=== PATIENT | male | born 1945 | race Caucasian/White ===

== ENCOUNTER 2024-03-19 16:25 | Inpatient (IN) ==
--- NOTE | 2024-03-19 16:49 | ED Triage Note ---
Date of Service March 19, 2024 Provider in Triage Author: Becki Berg History of Present Illness This patient was briefly evaluated while in triage. An abbreviated physical exam was performed. This patient is a 78-year-old Male who presents to the ED for evaluation of right hip and knee pain, got caught up in a tractor and "got dragged." Does not think he hit his head. No thinners. Abrasions to both arms, right low back/hip pain and knee pain, can't walk on the right leg because of pain in the hip and knee. Denies headache or neck pain. Denies chest pain, shortness of breath, abdominal pain, or back pain. Physical Exam CONSTITUTIONAL: No acute distress. Well appearing. HEENT: Atraumatic. Grass in hair. NECK: No midline tenderness of cervical spine. RESPIRATORY: Clear to auscultation bilaterally. Equal expansion bilaterally. CARDIOVASCULAR: Regular rate and rhythm. GASTROINTESTINAL: Soft, nontender. MUSCULOSKELETAL: No midline back tenderness. Tender to palpation in the right knee and right buttock region. INTEGUMENTARY: Large abrasions to bilateral upper extremities. NEUROLOGIC: Alert and oriented X 4 with normal affect. Normal sensation in all four extremities. Initial orders for labs and / or imaging were placed and patient was placed in the waiting area until a bed is available. Please see further documentation for the full ED course.
--- NOTE | 2024-03-19 16:57 | Emergency Department Note ---
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 Cholecystectomy. Unremarkable liver. Patency of the intrahepatic and portal veins.2.3 cm cyst of the superior pole left kidney. Mild nonspecific bilateral perinephric stranding. No hydronephrosis. Prostatomegaly. Urinary bladder wall thickening and trabeculation. Atherosclerosis of the abdominal aorta without aneurysm. No lymphadenopathy. Small hiatal hernia. No bowel obstruction or bowel wall thickening. Extensive colonic diverticulosis. 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 Acute nondisplaced right sacral fractures are mostly vertically oriented extending into the right SI joint. Acute comminuted and mildly displaced fractures of the right superior pubic and inferior pubic rami. No left-sided pelvic ring fractures. Hemorrhage surrounding the pelvic ring fractures extends into the adjacent adductor musculature and right hemipelvis/space of Retzius. LUMBAR SPINE: Acute mildly displaced fracture of the right L5 transverse process. No additional acute fracture or subluxation identified. Mild lumbar levoscoliosis. IMPRESSION: 1. No acute posttraumatic intrathoracic abnormality or acute solid organ injury. 2. Acute comminuted mildly displaced right pelvic ring fracture deformities with surrounding hemorrhage. 3. Acute nondisplaced intra-articular right sacral fractures. 4. Acute mildly displaced fracture of the right L5 transverse process. 5. 6 mm groundglass nodule of the right middle lobe. Please refer to below summary of Fleischner criteria recommendations for follow- up of incidental CT nodules (Clover Hubbard, Guidelines for management of small pulmonary nodules detected on CT scans: A statement from the Fleischner Society, Radiology 237: [phone].) Note: newly detected indeterminate nodule in persons 35 years of age or older. * Low risk patients: minimal or absent history of smoking and/or other known risk factors * high risk patients: history of smoking or of other known risk factors (e.g. first degree relative with lung cancer, or exposure to asbestos, radon, uranium) * if a nodule up to 8 mm is partly solid or is ground glass further follow-up is required after 24 months to exclude possible slow growing adenocarcinoma (JOSE) SUBSOLID NODULES Solitary pure ground-glass nodule * nodule size <6 mm - no CT follow-up required * nodule size >=6 mm - follow-up CT at 6-12 months, then every 2 years until 5 years The above report was generated using voice recognition software. It may contain grammatical, syntax or spelling errors. ACT 112: Negative or not required by law. Electronically signed by: Frank Castro M.D. 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 There is mild circumferential soft tissue swelling. Achilles Calcaneal enthesophyte. Arterial calcifications. No acute fracture, dislocation or opaque foreign body identified. IMPRESSION: No acute fracture or dislocation identified. ACT 112: Negative or not required by law. The above report was generated using voice recognition software. It may contain grammatical, syntax or spelling errors. Electronically signed by: Frank Castro M.D. 03/19/2024 6:21 PM Elbow X-Ray 03/19/24 17:06 XR elbow LT min 3V routine HISTORY: 78 years-old Male hematoma acute pain in the left upper extremity status post trauma COMPARISON: None TECHNIQUE: 3 views of the left elbow FINDINGS: Large olecranon enthesophyte. Mild osteoarthritis. No acute fracture, dislocation or opaque foreign body. Mild circumferential soft tissue swelling. IMPRESSION: No acute fracture or dislocation. ACT 112: Negative or not required by law. The above report was generated using voice recognition software. It may contain grammatical, syntax or spelling errors. Electronically signed by: Frank Castro M.D. 03/19/2024 6:24 PM Pelvis X-Ray 03/19/24 17:06 XR pelvis 1-2V routine, XR femur RT 2V routine HISTORY: 78 years-old Male pain post fall acute pain in the pelvis and right femur status post fall COMPARISON: CT abdomen and pelvis of same day TECHNIQUE: AP view the pelvis with 2 views of the right femur FINDINGS: PELVIS: Contrast noted within the urinary bladder lumen. Mild osteoarthritis of the hips. Acute nondisplaced right sacral fractures. Acute and comminuted fractures of the right superior pubic ramus with mild displacement. Acute minimally displaced right inferior pubic ramus fracture. No acute left-sided pelvic ring fracture. FEMUR: No acute fracture or dislocation identified. IMPRESSION: 1. Acute right sacral and pelvic ring fractures as above, better visualized on the comparison CT abdomen and pelvis of same day. 2. No acute fracture or dislocation identified involving the right femur. ACT 112: Negative or not required by law. The above report was generated using voice recognition software. It may contain grammatical, syntax or spelling errors. Electronically signed by: Frank Castro M.D. 03/19/2024 6:27 PM Discharge Plan Visit Data Chief Complaint: Abrasion Stated Complaint: ABRASSIONS/SKIN TAKEN OFF RT SIDE/HIP/ARM/LEG ED Provider: Mike Mishra Discharge Problem: Closed pelvic ring fracture, Closed sacral fracture, Fracture of transverse process of lumbar vertebra, Accident caused by farm tractor Patient Disposition: Admitted As Inpatient Discharge Instructions Interventions: ED Discharge Assessment Last Done: 03/19/24 21:32 Discharge Problem: Closed pelvic ring fracture Qualifiers: Encounter type: initial encounter Qualified Code(s): S32.810A - Multiple fractures of pelvis with stable disruption of pelvic ring, initial encounter for closed fracture Closed sacral fracture Qualifiers: Encounter type: initial encounter Fracture of transverse process of lumbar vertebra Qualifiers: Encounter type: initial encounter Fracture type: closed Qualified Code(s): S 32.009A - Unspecified fracture of unspecified lumbar vertebra, initial encounter for closed fracture Accident caused by farm tractor Qualifiers: Encounter type: initial encounter Qualified Code(s): W30.9XXA - Contact with unspecified agricultural machinery, initial encounter
[2024-03-19] MEDS: ACETAMINOPHEN 1,000 MG/100 ML VIAL IV STA (17:14)
[2024-03-19 17:21] LABS: iSTAT Creatinine 1.2 mg/dl (0.6-1.3); iSTAT Ionized Calcium 1.12 mmol/l (1.12-1.32); iSTAT Potassium 3.9 mmol/L (3.3-5.0)
[2024-03-19] MEDS: OPTIRAY 320 100ml IV ONE (17:50)
--- NOTE | 2024-03-19 18:14 | CT Scan Report ---
CT head/brain wo con CLINICAL HISTORY: 78 years-old Male with Trauma. Acute trauma status post fall TECHNIQUE: Multiple axial CT images of the head were obtained without contrast. A dose lowering tech nique was utilized adhering to the principles of ALARA. CT DOSE: 3074.98 mGy.cm COMPARISON: CT cervical spine of same day. FINDINGS: No acute intracranial hemorrhage, midline shift, intracranial mass, hydrocephalus, territorial ischem ia or abnormal extra-axial collection. Involutional changes with suggestion of mild chronic microvasc ular ischemic disease. Cerebrovascular calcifications. The calvarium is intact. [id number] chronic-appearing mucosal thickening of the paranasal sinu ses with chronic postoperative changes. Mastoid air cells are clear. IMPRESSION: No acute intracranial abnormality or calvarial fracture. ACT 112: Negative or not required by law. The above report was generated using voice recognition software. It may contain grammatical, syntax o r spelling errors. Electronically signed by: Frank Castro M.D. 03/19/2024 6:12 PM
--- NOTE | 2024-03-19 18:18 | CT Scan Report ---
CT cervical spine wo con CLINICAL HISTORY: 78 years-old Male with Trauma. Acute neck pain status post trauma COMPARISON: Head CT of same day TECHNIQUE: Multiple axial CT images of the cervical spine were obtained without contrast. A dose low ering technique was utilized adhering to the principles of ALARA. FINDINGS: Degenerative partial bony fusion of the C5-C6 levels. Moderate to severe intervertebral dis c space narrowing with prominent posterior disc osteophyte complex formation at C6-C7. Moderate to se david multilevel facet arthrosis resulting in multilevel neural foraminal narrowing. Subcentimeter scl erotic focus involves the left lateral mass of C1, possibly bone island. No acute fracture or subluxa tion identified. The cervical soft tissues appear unremarkable. Atherosclerosis of the carotid bulbs. The visualized l galilea apices appear clear. IMPRESSION: No acute cervical spine fracture or subluxation. ACT 112: Negative or not required by law. The above report was generated using voice recognition software. It may contain grammatical, syntax o r spelling errors. Electronically signed by: Frank Castro M.D. 03/19/2024 6:15 PM
--- NOTE | 2024-03-19 18:21 | XRay Report ---
XR chest 1V portable HISTORY: 78 years-old Male trauma acute chest trauma COMPARISON: Chest CT same day TECHNIQUE: AP view of the chest FINDINGS: Cardiomediastinal and hilar silhouettes are within normal limits. No pneumothorax, pleural effusion, airspace consolidation or pulmonary edema. Partially imaged cortical thickening in the left apical. N o acute displaced rib fracture identified. IMPRESSION: No acute process. ACT 112: Negative or not required by law. The above report was generated using voice recognition software. It may contain grammatical, syntax o r spelling errors. Electronically signed by: Frank Castro M.D. 03/19/2024 6:20 PM
--- NOTE | 2024-03-19 18:23 | XRay Report ---
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 There is mild circumferential soft tissue swel ling. Achilles Calcaneal enthesophyte. Arterial calcifications. No acute fracture, dislocation or opa que foreign body identified. IMPRESSION: No acute fracture or dislocation identified. ACT 112: Negative or not required by law. The above report was generated using voice recognition software. It may contain grammatical, syntax o r spelling errors. Electronically signed by: Frank Castro M.D. 03/19/2024 6:21 PM
--- NOTE | 2024-03-19 18:25 | XRay Report ---
XR elbow LT min 3V routine HISTORY: 78 years-old Male hematoma acute pain in the left upper extremity status post trauma COMPARISON: None TECHNIQUE: 3 views of the left elbow FINDINGS: Large olecranon enthesophyte. Mild osteoarthritis. No acute fracture, dislocation or opaque foreign b da. Mild circumferential soft tissue swelling. IMPRESSION: No acute fracture or dislocation. ACT 112: Negative or not required by law. The above report was generated using voice recognition software. It may contain grammatical, syntax o r spelling errors. Electronically signed by: Frank Castro M.D. 03/19/2024 6:24 PM
--- NOTE | 2024-03-19 18:29 | XRay Report ---
XR pelvis 1-2V routine, XR femur RT 2V routine HISTORY: 78 years-old Male pain post fall acute pain in the pelvis and right femur status post fall COMPARISON: CT abdomen and pelvis of same day TECHNIQUE: AP view the pelvis with 2 views of the right femur FINDINGS: PELVIS: Contrast noted within the urinary bladder lumen. Mild osteoarthritis of the hips. Acute nondisplaced right sacral fractures. Acute and comminuted fractures of the right superior pubic ramus with mild di splacement. Acute minimally displaced right inferior pubic ramus fracture. No acute left-sided pelvic ring fracture. FEMUR: No acute fracture or dislocation identified. IMPRESSION: 1. Acute right sacral and pelvic ring fractures as above, better visualized on the comparison CT abdo men and pelvis of same day. 2. No acute fracture or dislocation identified involving the right femur. ACT 112: Negative or not required by law. The above report was generated using voice recognition software. It may contain grammatical, syntax o r spelling errors. Electronically signed by: Frank Castro M.D. 03/19/2024 6:27 PM
[2024-03-19 18:32] LABS: Partial Thromboplastin Ratio 0.9; Partial Thromboplastin Time 23 Seconds (21-31); Prothrombin Time 10.6 Seconds (9.0-12.0)
--- NOTE | 2024-03-19 18:45 | CT Scan Report ---
CHEST CT WITH CONTRAST; CT ABDOMEN AND PELVIS AND LUMBAR SPINE WITH IV CONTRAST HISTORY: Acute chest, abdominal and low back pain status post trauma Trauma TECHNIQUE: Multiaxial CT images of the chest, abdomen and pelvis and lumbar spine were performed foll owing the IV administration of 94 cc of Optiray. A dose lowering technique was utilized adhering to the principles of ALARA. COMPARISON: CT abdomen and pelvis 01/07/2015. FINDINGS: CT CHEST: Unremarkable thyroid. No lymphadenopathy. Heart is normal in size without pericardial effusion. Exten sive coronary artery calcifications. Mild stenosis in the proximal left subclavian artery. Unremarkab le pulmonary artery. No pneumothorax, pleural effusion or overt pulmonary edema. 6 mm groundglass nod ule within the right middle lobe on image 163. Central airways are patent. Unremarkable soft tissues. Healed chronic left navicular fracture deformity. No acute fracture identified. CT ABDOMEN/PELVIS: There is no free air. Unremarkable spleen, pancreas and right adrenal gland. 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 Cholecystectomy. Unremarkable liver. Patency of the intrahepatic and portal veins.2.3 cm cyst of the superior pole left kidney. Mild nonspecific bilateral perinephric stranding. No hydroneph rosis. Prostatomegaly. Urinary bladder wall thickening and trabeculation. Atherosclerosis of the abdo rom aorta without aneurysm. No lymphadenopathy. Small hiatal hernia. No bowel obstruction or bowel wall thickening. Extensive colonic diverticulosis. 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 Acute nondis placed right sacral fractures are mostly vertically oriented extending into the right SI joint. Acute comminuted and mildly displaced fractures of the right superior pubic and inferior pubic rami. No le ft-sided pelvic ring fractures. Hemorrhage surrounding the pelvic ring fractures extends into the adj acent adductor musculature and right hemipelvis/space of Retzius. LUMBAR SPINE: Acute mildly displaced fracture of the right L5 transverse process. No additional acute fracture or s ubluxation identified. Mild lumbar levoscoliosis. IMPRESSION: 1. No acute posttraumatic intrathoracic abnormality or acute solid organ injury. 2. Acute comminuted mildly displaced right pelvic ring fracture deformities with surrounding hemorrha ge. 3. Acute nondisplaced intra-articular right sacral fractures. 4. Acute mildly displaced fracture of the right L5 transverse process. 5. 6 mm groundglass nodule of the right middle lobe. Please refer to below summary of Fleischner criteria recommendations for follow-up of incidental CT n odules ([facility] Hubbard, Guidelines for management of small pulmonary nodules detected on CT scans: A sta tement from the Fleischner Society, Radiology 237: [phone].) Note: newly detected indeterminate nodule in persons 35 years of age or older. * Low risk patients: minimal or absent history of smoking and/or other known risk factors * high risk patients: history of smoking or of other known risk factors (e.g. first degree relative with lung cancer, or exposure to asbestos, radon, uranium) * if a nodule up to 8 mm is partly solid or is ground glass further follow-up is required after 24 m onths to exclude possible slow growing adenocarcinoma (JOSE) SUBSOLID NODULES Solitary pure ground-glass nodule * nodule size <6 mm - no CT follow-up required * nodule size >=6 mm - follow-up CT at 6-12 months, then every 2 years until 5 years The above report was generated using voice recognition software. It may contain grammatical, syntax o r spelling errors. ACT 112: Negative or not required by law. Electronically signed by: Frank Castro M.D. 03/19/2024 6:43 PM
[2024-03-19 18:53] LABS: Basophils # (auto) 0.04 K/uL (0.00-0.20); Basophils % (auto) 0.2 %; Eosinophils # (auto) 0.01 K/uL (0.00-0.50); Hematocrit (blood only) 41.5 % (42.0-52.0); Hemoglobin 13.6 g/dl (14.0-18.0); Immature Granulocytes # (auto) 0.18 K/uL (0.01-0.20); Immature Granulocytes % (auto) 0.9 %; Lymphocytes # (auto) 0.59 K/uL (1.20-3.40); Lymphocytes % (auto) 2.8 %; Mean Corpuscular Hemoglobin 30.4 pg (25.0-34.0); Mean Corpuscular Hgb Conc 32.8 g/dL (32.0-36.0); Mean Corpuscular Volume 92.8 fL (80.0-100.0); Mean Platelet Volume 11.2 fL (9.4-12.4); Monocytes # (auto) 1.29 K/uL (0.11-0.59); Monocytes % (auto) 6.1 %; Platelet Count 223 K/uL (130-400); RDW Coefficient of Variation 13.2 % (11.5-14.5); RDW Standard Deviation 45.3 fL (36.4-46.3); Red Blood Count 4.47 M/uL (4.70-6.10); White Blood Count 21.11 K/ul (4.8-10.8)
[2024-03-19 18:54] LABS: Anion Gap 9 (3-11); Bilirubin,Total 0.7 mg/dl (0.2-1.0); Calcium 8.6 mg/dl (8.6-10.3); Carbon Dioxide 21 mmol/L (21-32); Chloride 106 mmol/L (98-107); Sodium 136 mmol/L (136-145)
[2024-03-19 19:00] LABS: Alanine Aminotransferase 19 U/L (7-52); Albumin Globulin Ratio 1.6 (0.9-2); Alkaline Phosphatase 83 U/L (34-104); Aspartate Aminotransferase 27 U/L (13-39); BUN Creatinine Ratio 21.8 (10-20); Blood Urea Nitrogen 24 mg/dl (6-23); Est GFR (African American) 73.1 ml/min; Est GFR (Non-African American) 63.1 ml/min; Globulin 2.5 gm/dl (2.5-4.0); Glucose 137 mg/dl (70-99(Fasting)); Lipase 41 U/L (11-82); Total Protein 6.5 gm/dl (6.0-8.3)
[2024-03-19 19:05] LABS: Troponin I High Sensitivity 18.6 pg/ml (0-20)
[2024-03-19 19:54] LABS: Creatine Kinase 706 U/L (30-223)
[2024-03-19] MEDS: SODIUM CHLORIDE 0.9% 1,000 ML IV ONE (20:10)
[2024-03-19] MEDS: traMADol HCL 50 MG TABLET PO PRN (20:10)
--- NOTE | 2024-03-19 20:14 | History & Physical Report ---
Date of Service March 19, 2024 Assessment & Plan (1) Pelvic fracture: Plan: Traumatic rhabdomyolysis eosinophilic asthma, stable hyperlipidemia on statin Rx Hyperglycemia likely prediabetes, outpatient hemoglobin A1c of 5.8 from 2010 Incidental finding right lung nodule on CT imaging OBS GMF Analgesia Monitor CPK response to IVF, hold statin for now Orthopedics consult re: pelvic fracture (ER provider already in touch with Dr. Felix.) PT eval in a.m. Check hemoglobin A1c Outpatient follow-up imaging for SPN following Fleischner criteria DVT prophylaxis. SCDs Re: Traumatic bleeding wounds Full code Text document was generated using [employer] voice recognition software. It may contain grammatical or spelling errors. Kindly contact undersigned for clarification of any documentation item in question. History of Present Illness Chief Complaint: Hip pain, tractor injury Primary Care Provider: History obtained from patient and records. Medical history significant for eosinophilic asthma, hyperlipidemia, BPH. Last confinement 2015 for asthma exacerbation. Patient got ran over by farm tractor today. He was trying to stop a farm tractor from the ground. Patient sustained bleeding wounds on the arms and legs. No head trauma, no chest pain, no SOB. Achy right hip pain worse with motion noted later. 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 Allergies Allergy/AdvReac Type Severity Reaction Status Date / Time bacitracin Allergy Intermediate RASH-2+ Verified 03/19/24 18:26 PATCH TESTING 07/24/23 amoxicillin [From Augmentin] AdvReac Intermediate Vomiting Verified 03/19/24 18:26 cefdinir AdvReac Intermediate Diarrhea Verified 03/19/24 18:26 clavulanic acid AdvReac Intermediate Vomiting Verified 03/19/24 18:26 [From Augmentin] Home Medications Medication Instructions Recorded Confirmed Type benralizumab 30 mg/mL subcutaneous 30 mg subcut .[id number] 03/19/24 03/19/24 History syringe (Fasenra) clobetasol 0.05 % topical ointment 1 applic topical BID PRN Skin 03/19/24 03/19/24 History Irritation simvastatin 20 mg tablet 20 mg PO HS 03/19/24 03/19/24 History tamsulosin 0.4 mg capsule 0.4 mg PO DAILY 03/19/24 03/19/24 History Past Med/Surg History Problem List (Updated 03/20/24 @ 00:51 by Mike Mishra MD) Accident caused by farm tractor (Acute) Fracture of transverse process of lumbar vertebra (Acute) Closed sacral fracture (Acute) Closed pelvic ring fracture (Acute) Pelvic fracture Asthma (Chronic) Abdominal pain (Acute) Acute bronchitis Social History Smoking Status: Never smoker Hx Alcohol Use: No Hx Substance Use: No Preferred Language: Khmer Communication Ability: Effective Director On Air Required: No Beliefs That Will Affect Care: None Current Living Situation: Spouse Other Information That Helps Us Care for You: No Feels Safe at Home: Yes Safety Concerns: Feels Safe At This Time Assistive Devices: Denture - Upper, Hospital Bed, Walker and Wheelchair Review of Systems Review of Systems: As per HPI, all other systems reviewed and negative Physical Exam Physical Exam: GENERAL: Comfortable, pleasant, looks younger than stated age, no respiratory distress SKIN: Normal color, warm HEENT: [place] palpebral conjunctivae, no ptosis, dry buccal mucosa NECK : Supple, no tenderness CHEST : CTA, no tenderness HEART : RRR, no obvious murmurs ABDOMEN: [place] burn over right groin, some distention, nontender EXTREMITIES : Right hip tenderness, abrasions/contusions over extremities NEUROLOGIC : Coherent, no facial asymmetry, no other gross focality Results & Data Results & Data Vital Signs (Past 12 Hours) Vital Signs Temp Pulse Pulse Resp BP BP Pulse Ox 03/19/24 18:26 78 18 145/81 H 97 03/19/24 17:36 18 95 03/19/24 17:28 71 03/19/24 16:45 36.4 C L 78 20 155/90 H 96 O2 Del Method 03/19/24 18:26 Room Air 03/19/24 17:36 Room Air 03/19/24 17:28 03/19/24 16:45 Room Air Laboratory Results Laboratory Results WBC 21.11 K/ul (4.8-10.8) H 03/19/24 18:15 RBC 4.47 M/uL (4.70-6.10) L 03/19/24 18:15 Hgb 13.6 g/dl (14.0-18.0) L 03/19/24 18:15 POC Hgb 15.0 g/dl (14.0-18.0) 03/19/24 17:07 Hct 41.5 % (42.0-52.0) L 03/19/24 18:15 POC Hct 44 % (42-52) 03/19/24 17:07 MCV 92.8 fL (80.0-100.0) 03/19/24 18:15 MCH 30.4 pg (25.0-34.0) 03/19/24 18:15 MCHC 32.8 g/dL (32.0-36.0) 03/19/24 18:15 RDW Std Deviation 45.3 fL (36.4-46.3) 03/19/24 18:15 RDW Coeff of Sarah 13.2 % (11.5-14.5) 03/19/24 18:15 Plt Count 223 K/uL (130-400) 03/19/24 18:15 MPV 11.2 fL (9.4-12.4) 03/19/24 18:15 Immature Gran % (Auto) 0.9 % 03/19/24 18:15 Neut % (Auto) 90.0 % 03/19/24 18:15 Lymph % (Auto) 2.8 % 03/19/24 18:15 [place] % (Auto) 6.1 % 03/19/24 18:15 Eos % (Auto) 0.0 % 03/19/24 18:15 Baso % (Auto) 0.2 % 03/19/24 18:15 Neut # (Auto) 19.00 K/uL (1.40-6.50) H 03/19/24 18:15 Lymph # (Auto) 0.59 K/uL (1.20-3.40) L 03/19/24 18:15 Hamblen # (Auto) 1.29 K/uL (0.11-0.59) H 03/19/24 18:15 Eos # (Auto) 0.01 K/uL (0.00-0.50) 03/19/24 18:15 Baso # (Auto) 0.04 K/uL (0.00-0.20) 03/19/24 18:15 Immature Gran # (Auto) 0.18 K/uL (0.01-0.20) 03/19/24 18:15 PT 10.6 Seconds (9.0-12.0) 03/19/24 17:07 INR 1.0 (0.9-1.1) 03/19/24 17:07 APTT 23 Seconds (21-31) 03/19/24 17:07 PTT Ratio 0.9 03/19/24 17:07 POC Sodium 139 mmol/L (135-144) 03/19/24 17:07 Sodium 136 mmol/L (136-145) 03/19/24 18:15 POC Potassium 3.9 mmol/L (3.3-5.0) 03/19/24 17:07 Potassium 4.0 mmol/L (3.5-5.1) 03/19/24 18:15 POC Chloride 104 mmol/L (101-112) 03/19/24 17:07 Chloride 106 mmol/L (98-107) 03/19/24 18:15 Carbon Dioxide 21 mmol/L (21-32) 03/19/24 18:15 POC Total CO2 24 mmol/L (24-31) 03/19/24 17:07 Anion Gap 9 (3-11) 03/19/24 18:15 POC Anion Gap 16.0 mmol/L (16-25) 03/19/24 17:07 POC BUN 24 mg/dl (7-18) H 03/19/24 17:07 BUN 24 mg/dl (6-23) H 03/19/24 18:15 Creatinine 1.10 mg/dl (0.6-1.4) 03/19/24 18:15 POC Creatinine 1.2 mg/dl (0.6-1.3) 03/19/24 17:07 Est Cr Clr Drug Dosing Not Reportable 03/19/24 18:15 Est GFR ( Amer) 73.1 ml/min 03/19/24 18:15 Est GFR (Non-Af Amer) 63.1 ml/min 03/19/24 18:15 BUN/Creatinine Ratio 21.8 (10-20) H 03/19/24 18:15 Glucose 137 mg/dl (70-99(Fasting)) H 03/19/24 18:15 POC Glucose (other) 168 mg/dl (70-99) H 03/19/24 17:07 Calcium 8.6 mg/dl (8.6-10.3) 03/19/24 18:15 POC Ioniz Calcium Qiana 1.12 mmol/l (1.12-1.32) 03/19/24 17:07 Total Bilirubin 0.7 mg/dl (0.2-1.0) 03/19/24 18:15 AST 27 U/L (13-39) 03/19/24 18:15 ALT 19 U/L (7-52) 03/19/24 18:15 Alkaline Phosphatase 83 U/L (34-104) 03/19/24 18:15 Total Creatine Kinase 706 U/L (30-223) H 03/19/24 18:15 Troponin I High Sens 18.6 pg/ml (0-20) 03/19/24 18:15 Total Protein 6.5 gm/dl (6.0-8.3) 03/19/24 18:15 Albumin 4.0 gm/dl (3.4-5.0) 03/19/24 18:15 Globulin 2.5 gm/dl (2.5-4.0) 03/19/24 18:15 Albumin/Globulin Ratio 1.6 (0.9-2) 03/19/24 18:15 Lipase 41 U/L (11-82) 03/19/24 18:15 Impressions Chest X-Ray 03/19/24 16:51 XR chest 1V portable HISTORY: 78 years-old Male trauma acute chest trauma COMPARISON: Chest CT same day TECHNIQUE: AP view of the chest FINDINGS: Cardiomediastinal and hilar silhouettes are within normal limits. No pneumothorax, pleural effusion, airspace consolidation or pulmonary edema. Partially imaged cortical thickening in the left apical. No acute displaced rib fracture identified. IMPRESSION: No acute process. ACT 112: Negative or not required by law. The above report was generated using voice recognition software. It may contain grammatical, syntax or spelling errors. Electronically signed by: Frank Castro M.D. 03/19/2024 6:20 PM Femur X-Ray 03/19/24 16:51 XR pelvis 1-2V routine, XR femur RT 2V routine HISTORY: 78 years-old Male pain post fall acute pain in the pelvis and right femur status post fall COMPARISON: CT abdomen and pelvis of same day TECHNIQUE: AP view the pelvis with 2 views of the right femur FINDINGS: PELVIS: Contrast noted within the urinary bladder lumen. Mild osteoarthritis of the hips. Acute nondisplaced right sacral fractures. Acute and comminuted fractures of the right superior pubic ramus with mild displacement. Acute minimally displaced right inferior pubic ramus fracture. No acute left-sided pelvic ring fracture. FEMUR: No acute fracture or dislocation identified. IMPRESSION: 1. Acute right sacral and pelvic ring fractures as above, better visualized on the comparison CT abdomen and pelvis of same day. 2. No acute fracture or dislocation identified involving the right femur. ACT 112: Negative or not required by law. The above report was generated using voice recognition software. It may contain grammatical, syntax or spelling errors. Electronically signed by: Frank Castro M.D. 03/19/2024 6:[address] 03/19/24 16:51 CT head/brain wo con CLINICAL HISTORY: 78 years-old Male with Trauma. Acute trauma status post fall TECHNIQUE: Multiple axial CT images of the head were obtained without contrast. A dose lowering technique was utilized adhering to the principles of ALARA. CT DOSE: 3074.98 mGy.cm COMPARISON: CT cervical spine of same day. FINDINGS: No acute intracranial hemorrhage, midline shift, intracranial mass, hydrocephalus, territorial ischemia or abnormal extra-axial collection. Involutional changes with suggestion of mild chronic microvascular ischemic disease. Cerebrovascular calcifications. The calvarium is intact. [id number] chronic-appearing mucosal thickening of the paranasal sinuses with chronic postoperative changes. Mastoid air cells are clear. IMPRESSION: No acute intracranial abnormality or calvarial fracture. ACT 112: Negative or not required by law. The above report was generated using voice recognition software. It may contain grammatical, syntax or spelling errors. Electronically signed by: Frank Castro M.D. 03/19/2024 6:12 PM Abdomen/Pelvis CT 03/19/24 16:[address] WITH CONTRAST; CT ABDOMEN AND PELVIS AND LUMBAR SPINE WITH IV CONTRAST HISTORY: Acute chest, abdominal and low back pain status post trauma Trauma TECHNIQUE: Multiaxial CT images of the chest, abdomen and pelvis and lumbar spine were performed following the IV administration of 94 cc of Optiray. A dose lowering technique was utilized adhering to the principles of ALARA. COMPARISON: CT abdomen and pelvis 01/07/2015. FINDINGS: CT CHEST: Unremarkable thyroid. No lymphadenopathy. Heart is normal in size without pericardial effusion. Extensive coronary artery calcifications. Mild stenosis in the proximal left subclavian artery. Unremarkable pulmonary artery. No pneumothorax, pleural effusion or overt pulmonary edema. 6 mm groundglass nodule within the right middle lobe on image 163. Central airways are patent. Unremarkable soft tissues. Healed chronic left navicular fracture deformity. No acute fracture identified. CT ABDOMEN/PELVIS: There is no free air. Unremarkable spleen, pancreas and right adrenal gland. 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 Cholecystectomy. Unremarkable liver. Patency of the intrahepatic and portal veins.2.3 cm cyst of the superior pole left kidney. Mild nonspecific bilateral perinephric stranding. No hydronephrosis. Prostatomegaly. Urinary bladder wall thickening and trabeculation. Atherosclerosis of the abdominal aorta without aneurysm. No lymphadenopathy. Small hiatal hernia. No bowel obstruction or bowel wall thickening. Extensive colonic diverticulosis. 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 Acute nondisplaced right sacral fractures are mostly vertically oriented extending into the right SI joint. Acute comminuted and mildly displaced fractures of the right superior pubic and inferior pubic rami. No left-sided pelvic ring fractures. Hemorrhage surrounding the pelvic ring fractures extends into the adjacent adductor musculature and right hemipelvis/space of Retzius. LUMBAR SPINE: Acute mildly displaced fracture of the right L5 transverse process. No additional acute fracture or subluxation identified. Mild lumbar levoscoliosis. IMPRESSION: 1. No acute posttraumatic intrathoracic abnormality or acute solid organ injury. 2. Acute comminuted mildly displaced right pelvic ring fracture deformities with surrounding hemorrhage. 3. Acute nondisplaced intra-articular right sacral fractures. 4. Acute mildly displaced fracture of the right L5 transverse process. 5. 6 mm groundglass nodule of the right middle lobe. Please refer to below summary of Fleischner criteria recommendations for follow- up of incidental CT nodules (Clover Hubbard, Guidelines for management of small pulmonary nodules detected on CT scans: A statement from the Fleischner Society, Radiology 237: [phone].) Note: newly detected indeterminate nodule in persons 35 years of age or older. * Low risk patients: minimal or absent history of smoking and/or other known risk factors * high risk patients: history of smoking or of other known risk factors (e.g. first degree relative with lung cancer, or exposure to asbestos, radon, uranium) * if a nodule up to 8 mm is partly solid or is ground glass further follow-up is required after 24 months to exclude possible slow growing adenocarcinoma (JOSE) SUBSOLID NODULES Solitary pure ground-glass nodule * nodule size <6 mm - no CT follow-up required * nodule size >=6 mm - follow-up CT at 6-12 months, then every 2 years until 5 years The above report was generated using voice recognition software. It may contain grammatical, syntax or spelling errors. ACT 112: Negative or not required by law. Electronically signed by: Frank Castro M.D. 03/19/2024 6:[address] 03/19/24 16:52 CT cervical spine wo con CLINICAL HISTORY: 78 years-old Male with Trauma. Acute neck pain status post trauma COMPARISON: Head CT of same day TECHNIQUE: Multiple axial CT images of the cervical spine were obtained without contrast. A dose lowering technique was utilized adhering to the principles of ALARA. FINDINGS: Degenerative partial bony fusion of the C5-C6 levels. Moderate to severe intervertebral disc space narrowing with prominent posterior disc osteophyte complex formation at C6-C7. Moderate to severe multilevel facet arthrosis resulting in multilevel neural foraminal narrowing. Subcentimeter sclerotic focus involves the left lateral mass of C1, possibly bone island. No acute fracture or subluxation identified. The cervical soft tissues appear unremarkable. Atherosclerosis of the carotid bulbs. The visualized lung apices appear clear. IMPRESSION: No acute cervical spine fracture or subluxation. ACT 112: Negative or not required by law. The above report was generated using voice recognition software. It may contain grammatical, syntax or spelling errors. Electronically signed by: Frank Castro M.D. 03/19/2024 6:[address] 03/19/24 16:[address] WITH CONTRAST; CT ABDOMEN AND PELVIS AND LUMBAR SPINE WITH IV CONTRAST HISTORY: Acute chest, abdominal and low back pain status post trauma Trauma TECHNIQUE: Multiaxial CT images of the chest, abdomen and pelvis and lumbar spine were performed following the IV administration of 94 cc of Optiray. A dose lowering technique was utilized adhering to the principles of ALARA. COMPARISON: CT abdomen and pelvis 01/07/2015. FINDINGS: CT CHEST: Unremarkable thyroid. No lymphadenopathy. Heart is normal in size without pericardial effusion. Extensive coronary artery calcifications. Mild stenosis in the proximal left subclavian artery. Unremarkable pulmonary artery. No pneumothorax, pleural effusion or overt pulmonary edema. 6 mm groundglass nodule within the right middle lobe on image 163. Central airways are patent. Unremarkable soft tissues. Healed chronic left navicular fracture deformity. No acute fracture identified. CT ABDOMEN/PELVIS: There is no free air. Unremarkable spleen, pancreas and right adrenal gland. 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 Cholecystectomy. Unremarkable liver. Patency of the intrahepatic and portal veins.2.3 cm cyst of the superior pole left kidney. Mild nonspecific bilateral perinephric stranding. No hydronephrosis. Prostatomegaly. Urinary bladder wall thickening and trabeculation. Atherosclerosis of the abdominal aorta without aneurysm. No lymphadenopathy. Small hiatal hernia. No bowel obstruction or bowel wall thickening. Extensive colonic diverticulosis. 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 Acute nondisplaced right sacral fractures are mostly vertically oriented extending into the right SI joint. Acute comminuted and mildly displaced fractures of the right superior pubic and inferior pubic rami. No left-sided pelvic ring fractures. Hemorrhage surrounding the pelvic ring fractures extends into the adjacent adductor musculature and right hemipelvis/space of Retzius. LUMBAR SPINE: Acute mildly displaced fracture of the right L5 transverse process. No additional acute fracture or subluxation identified. Mild lumbar levoscoliosis. IMPRESSION: 1. No acute posttraumatic intrathoracic abnormality or acute solid organ injury. 2. Acute comminuted mildly displaced right pelvic ring fracture deformities with surrounding hemorrhage. 3. Acute nondisplaced intra-articular right sacral fractures. 4. Acute mildly displaced fracture of the right L5 transverse process. 5. 6 mm groundglass nodule of the right middle lobe. Please refer to below summary of Fleischner criteria recommendations for follow- up of incidental CT nodules (Clover Hubbard, Guidelines for management of small pulmonary nodules detected on CT scans: A statement from the Fleischner Society, Radiology 237: [phone].) Note: newly detected indeterminate nodule in persons 35 years of age or older. * Low risk patients: minimal or absent history of smoking and/or other known risk factors * high risk patients: history of smoking or of other known risk factors (e.g. first degree relative with lung cancer, or exposure to asbestos, radon, uranium) * if a nodule up to 8 mm is partly solid or is ground glass further follow-up is required after 24 months to exclude possible slow growing adenocarcinoma (JOSE) SUBSOLID NODULES Solitary pure ground-glass nodule * nodule size <6 mm - no CT follow-up required * nodule size >=6 mm - follow-up CT at 6-12 months, then every 2 years until 5 years The above report was generated using voice recognition software. It may contain grammatical, syntax or spelling errors. ACT 112: Negative or not required by law. Electronically signed by: Frank Castro M.D. 03/19/2024 6:[address] 03/19/24 16:[address] WITH CONTRAST; CT ABDOMEN AND PELVIS AND LUMBAR SPINE WITH IV CONTRAST HISTORY: Acute chest, abdominal and low back pain status post trauma Trauma TECHNIQUE: Multiaxial CT images of the chest, abdomen and pelvis and lumbar spine were performed following the IV administration of 94 cc of Optiray. A dose lowering technique was utilized adhering to the principles of ALARA. COMPARISON: CT abdomen and pelvis 01/07/2015. FINDINGS: CT CHEST: Unremarkable thyroid. No lymphadenopathy. Heart is normal in size without pericardial effusion. Extensive coronary artery calcifications. Mild stenosis in the proximal left subclavian artery. Unremarkable pulmonary artery. No pneumothorax, pleural effusion or overt pulmonary edema. 6 mm groundglass nodule within the right middle lobe on image 163. Central airways are patent. Unremarkable soft tissues. Healed chronic left navicular fracture deformity. No acute fracture identified. CT ABDOMEN/PELVIS: There is no free air. Unremarkable spleen, pancreas and right adrenal gland. 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 Cholecystectomy. Unremarkable liver. Patency of the intrahepatic and portal veins.2.3 cm cyst of the superior pole left kidney. Mild nonspecific bilateral perinephric stranding. No hydronephrosis. Prostatomegaly. Urinary bladder wall thickening and trabeculation. Atherosclerosis of the abdominal aorta without aneurysm. No lymphadenopathy. Small hiatal hernia. No bowel obstruction or bowel wall thickening. Extensive colonic diverticulosis. 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 Acute nondisplaced right sacral fractures are mostly vertically oriented extending into the right SI joint. Acute comminuted and mildly displaced fractures of the right superior pubic and inferior pubic rami. No left-sided pelvic ring fractures. Hemorrhage surrounding the pelvic ring fractures extends into the adjacent adductor musculature and right hemipelvis/space of Retzius. LUMBAR SPINE: Acute mildly displaced fracture of the right L5 transverse process. No additional acute fracture or subluxation identified. Mild lumbar levoscoliosis. IMPRESSION: 1. No acute posttraumatic intrathoracic abnormality or acute solid organ injury. 2. Acute comminuted mildly displaced right pelvic ring fracture deformities with surrounding hemorrhage. 3. Acute nondisplaced intra-articular right sacral fractures. 4. Acute mildly displaced fracture of the right L5 transverse process. 5. 6 mm groundglass nodule of the right middle lobe. Please refer to below summary of Fleischner criteria recommendations for follow- up of incidental CT nodules (Clover Hubbard, Guidelines for management of small pulmonary nodules detected on CT scans: A statement from the Fleischner Society, Radiology 237: [phone].) Note: newly detected indeterminate nodule in persons 35 years of age or older. * Low risk patients: minimal or absent history of smoking and/or other known risk factors * high risk patients: history of smoking or of other known risk factors (e.g. first degree relative with lung cancer, or exposure to asbestos, radon, uranium) * if a nodule up to 8 mm is partly solid or is ground glass further follow-up is required after 24 months to exclude possible slow growing adenocarcinoma (JOSE) SUBSOLID NODULES Solitary pure ground-glass nodule * nodule size <6 mm - no CT follow-up required * nodule size >=6 mm - follow-up CT at 6-12 months, then every 2 years until 5 years The above report was generated using voice recognition software. It may contain grammatical, syntax or spelling errors. ACT 112: Negative or not required by law. Electronically signed by: Frank Castro M.D. 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 There is mild circumferential soft tissue swelling. Achilles Calcaneal enthesophyte. Arterial calcifications. No acute fracture, dislocation or opaque foreign body identified. IMPRESSION: No acute fracture or dislocation identified. ACT 112: Negative or not required by law. The above report was generated using voice recognition software. It may contain grammatical, syntax or spelling errors. Electronically signed by: Frank Castro M.D. 03/19/2024 6:21 PM Elbow X-Ray 03/19/24 17:06 XR elbow LT min 3V routine HISTORY: 78 years-old Male hematoma acute pain in the left upper extremity status post trauma COMPARISON: None TECHNIQUE: 3 views of the left elbow FINDINGS: Large olecranon enthesophyte. Mild osteoarthritis. No acute fracture, dislocation or opaque foreign body. Mild circumferential soft tissue swelling. IMPRESSION: No acute fracture or dislocation. ACT 112: Negative or not required by law. The above report was generated using voice recognition software. It may contain grammatical, syntax or spelling errors. Electronically signed by: Frank Castro M.D. 03/19/2024 6:24 PM Pelvis X-Ray 03/19/24 17:06 XR pelvis 1-2V routine, XR femur RT 2V routine HISTORY: 78 years-old Male pain post fall acute pain in the pelvis and right femur status post fall COMPARISON: CT abdomen and pelvis of same day TECHNIQUE: AP view the pelvis with 2 views of the right femur FINDINGS: PELVIS: Contrast noted within the urinary bladder lumen. Mild osteoarthritis of the hips. Acute nondisplaced right sacral fractures. Acute and comminuted fractures of the right superior pubic ramus with mild displacement. Acute minimally displaced right inferior pubic ramus fracture. No acute left-sided pelvic ring fracture. FEMUR: No acute fracture or dislocation identified. IMPRESSION: 1. Acute right sacral and pelvic ring fractures as above, better visualized on the comparison CT abdomen and pelvis of same day. 2. No acute fracture or dislocation identified involving the right femur. ACT 112: Negative or not required by law. The above report was generated using voice recognition software. It may contain grammatical, syntax or spelling errors. Electronically signed by: Frank Castro M.D. 03/19/2024 6:27 PM Diagnostic Findings EKG as per my interpretation :Rate 75, NSR, normal axis, T wave flattening inferior leads
[2024-03-20] MEDS: TAMSULOSIN HCL 0.4 MG CAP PO SCH (07:14)
[2024-03-20 07:32] LABS: BUN Creatinine Ratio 19.8 (10-20); Calcium 7.6 mg/dl (8.6-10.3); Creatinine Clr Calc Pharmacy 90.4 ml/min; Est GFR (African American) 86.2 ml/min; Est GFR (Non-African American) 74.4 ml/min
[2024-03-20 07:40] LABS: Appearance Urine Clear (Clear); Bacteria Urine Automated None Seen (None Seen); Bilirubin Urine Negative (Negative); Blood Urine Negative (Negative); Cast Urine Automated 0-2 /lpf (0-2); Color Urine Yellow; Epithelial Cell Urine Auto 0-2 /hpf (0-2); Glucose Urine UA Trace (Negative); Ketones Urine Trace (Negative); Leukocyte Esterase Urine Negative (Negative); Nitrite Urine Negative (Negative); Protein Urine Trace (Negative); RBC Urine Automated 0-2 /hpf (0-2); Specific Gravity Urine > 1.045 (1.000-1.030); Urobilinogen Urine Negative (Negative); WBC Urine Automated 0-5 /hpf (0-5)
--- NOTE | 2024-03-20 08:05 | Orthopedic Consultation ---
Date of Service March 20, 2024 Assessment & Plan (1) Closed pelvic ring fracture: 78-year-old fairly active desouza status post a farm accident and fall with a stable pelvis fracture. This is some that is okay for him to weight-bear as tolerated. Takes about 3 months to totally heal. The first 2 to 4 weeks can be pretty painful. He can weight-bear as tolerated. He will likely need a walker for the first 2 to 4 weeks. We can start therapy today. Mobilize as tolerated. He is got multiple superficial kind of abrasions. He might benefit due to have the wound care nurse come and see him and help him address these. As far as orthopedic follow-up we should check him back in a month. Any orthopedic questions can be directed me at id [phone]. (2) Closed sacral fracture: (3) Fracture of transverse process of lumbar vertebra: (4) Accident caused by farm tractor: History of Present Illness Reason for Consultation: . Right sided pelvis fracture Requesting Physician: . Attending Physician: Chris Ramirez MD . Patient is an 78-year-old very active desouza who sustained an injury yesterday. He fell off his tractor onto his right side. He was seen in the emergency room had extensive workup. He is complaining of isolated primarily right hip but in low back and buttock pain. Denies any head injury loss of consciousness or neck pain. Allergies Allergy/AdvReac Type Severity Reaction Status Date / Time bacitracin Allergy Intermediate RASH-2+ Verified 03/19/24 18:26 PATCH TESTING 07/24/23 amoxicillin [From Augmentin] AdvReac Intermediate Vomiting Verified 03/19/24 18:26 cefdinir AdvReac Intermediate Diarrhea Verified 03/19/24 18:26 clavulanic acid AdvReac Intermediate Vomiting Verified 03/19/24 18:26 [From Augmentin] Home Medications Medication Instructions Recorded Confirmed Type benralizumab 30 mg/mL subcutaneous 30 mg subcut .Q8WKS 03/19/24 03/19/24 History syringe (Ekta) clobetasol 0.05 % topical ointment 1 applic topical BID PRN Skin 03/19/24 03/19/24 History Irritation simvastatin 20 mg tablet 20 mg PO HS 03/19/24 03/19/24 History tamsulosin 0.4 mg capsule 0.4 mg PO DAILY 03/19/24 03/19/24 History Past Med/Surg History Problem List Accident caused by farm tractor (Acute) Fracture of transverse process of lumbar vertebra (Acute) Closed sacral fracture (Acute) Closed pelvic ring fracture (Acute) Pelvic fracture Asthma (Chronic) Abdominal pain (Acute) Acute bronchitis Social History Smoking Status: Never smoker Hx Alcohol Use: No Hx Substance Use: No Preferred Language: Zimbabwean Communication Ability: Effective 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 Physical Exam . Physical examination reveals a pleasant healthy appearing elderly male. Days lying in bed looks pretty comfortable this morning. General musculoskeletal exam reveals a multiple abrasions throughout his skeleton primarily in his right hip area as well as his right lower extremity with a small abrasion on his left leg. Examination of the right hip and leg reveals no obvious deformity. Got multiple abrasions over his knee and leg as well as his lateral hip area. They are all fairly superficial. No major swelling or bruising. He has difficulty doing a straight leg raise. He has no real particular pain with passive hip motion. No knee effusion. He is neurologically intact. Leg lengths are equal. Results & Data Results & Data Laboratory Results . Diagnostic Findings . Multiple radiographs of the skeleton were reviewed as well as CT scans. In summary it reveals a superior and inferior pubic ramus fracture on the right side with some slight comminution and a posterior sacral fracture nondisplaced. No other fractures PG Care Time/CCT Total # of Minutes Spent Total Time Spent with Patient: Total time spent is greater than 50% in coordination of care (as documented) at patient's floor/unit and/or counseling patient: Coding Level of Care Code 09369 IN/OBS CONSULT LVL 4,60M Diagnoses Closed pelvic ring fracture S32.810A Encounter type: initial encounter Closed sacral fracture S32.10XA Encounter type: initial encounter Fracture of transverse process of lumbar vertebra S32.009A Encounter type: initial encounter Fracture type: closed Accident caused by farm tractor W30.9XXA Encounter type: initial encounter (1) Closed pelvic ring fracture Encounter type: initial encounter Qualified Code(s): S32.810A - Multiple fractures of pelvis with stable disruption of pelvic ring, initial encounter for closed fracture (2) Closed sacral fracture Encounter type: initial encounter (3) Fracture of transverse process of lumbar vertebra Encounter type: initial encounter Fracture type: closed Qualified Code(s): S32.009A - Unspecified fracture of unspecified lumbar vertebra, initial encounter for closed fracture (4) Accident caused by farm tractor Encounter type: initial encounter Qualified Code(s): W30.9XXA - Contact with unspecified agricultural machinery, initial encounter
[2024-03-20] MEDS: SODIUM CHLORIDE 0.9% 1,000 ML IV SCH (08:51)
[2024-03-20] MEDS: ONDANSETRON INJ 2 MG/ML 2 ML VIAL IV PRN (08:51)
[2024-03-20 09:09] LABS: Basophils # (auto) 0.02 K/uL (0.00-0.20); Basophils % (auto) 0.2 %; Hematocrit (blood only) 37.6 % (42.0-52.0); Hemoglobin 12.3 g/dl (14.0-18.0); Immature Granulocytes # (auto) 0.06 K/uL (0.01-0.20); Immature Granulocytes % (auto) 0.6 %; Lymphocytes # (auto) 0.75 K/uL (1.20-3.40); Lymphocytes % (auto) 7.2 %; Mean Corpuscular Hemoglobin 30.1 pg (25.0-34.0); Mean Corpuscular Hgb Conc 32.7 g/dL (32.0-36.0); Mean Corpuscular Volume 92.2 fL (80.0-100.0); Mean Platelet Volume 11.1 fL (9.4-12.4); Monocytes # (auto) 1.04 K/uL (0.11-0.59); Neutrophils # (auto) 8.57 K/uL (1.40-6.50); Platelet Count 194 K/uL (130-400); RDW Coefficient of Variation 13.4 % (11.5-14.5); RDW Standard Deviation 45.5 fL (36.4-46.3); Red Blood Count 4.08 M/uL (4.70-6.10); White Blood Count 10.44 K/ul (4.8-10.8)
[2024-03-20 09:57] LABS: Estimated Average Glucose 128 mg/dl; Hemoglobin A1C 6.1 % (4.5-5.6)
--- NOTE | 2024-03-20 15:48 | Hospitalist Progress Note ---
Date of Service March 20, 2024 Assessment & Plan (1) Accident caused by farm tractor: Plan: Try to stop before tractor from the ground Got run over by the tractor with multiple injuries including Pelvic fracture as below Appreciate Ortho input and recommendation Conservative management Weightbearing as tolerated PT OT evaluation (2) Pelvic fracture: (3) Closed pelvic ring fracture: (4) Closed sacral fracture: (5) Fracture of transverse process of lumbar vertebra: Plan Other significant medical conditions as below and seems to be stable Traumatic rhabdomyolysis Monitor CPK response to IVF, hold statin for now Advised to drink more fluid Total CK remains below 1000 Will monitor Eosinophilic asthma, stable hyperlipidemia on statin Rx Hyperglycemia likely prediabetes, outpatient hemoglobin A1c of 5.8 from 2010 Incidental finding right lung nodule on CT imaging Check hemoglobin A1c-6.1 Outpatient follow-up imaging for SPN following Fleischner criteria DVT prophylaxis. SCDs Re: Traumatic bleeding wounds Full code Text document was generated using [employer] voice recognition software. It may contain grammatical or spelling errors. Kindly contact undersigned for clarification of any documentation item in question. Admission and Anticipated Discharge Date Admission Date: March 19, 2024 Subjective 03/20/2024 The patient was seen and examined in medical floor He has been stable in bed Pain in the pelvis with activity and physical therapy Denies any other significant symptoms Review of Systems Review of Systems: All systems reviewed and are unremarkable except as noted below Physical Exam Physical Exam: Lying in bed without any acute distress Constitutional: well developed, well nourished, + ill appearing and + obese Eyes: PERRL, conjunctivae normal, anicteric sclerae ENMT: external ear and nose normal, oropharynx normal Neck: trachea midline, no thyromegaly Respiratory: no respiratory distress Auscultation: lungs clear to auscultation bilaterally Cardiovascular: Rate/Rhythm: regular rate and regular rhythm; not tachycardic Heart Sounds: normal S1 and normal S2; no murmur Extremities: no edema Gastrointestinal (Abdomen): Inspection/Auscultation: normal bowel sounds; abdomen not distended Percussion/Palpation: abdomen soft; abdomen nontender Musculoskeletal: Movement of the lower extremities produces pain in the hip Neurologic: normal touch/pain/proprioception and moves all extremities; no focal motor deficits Psychiatric: A+Ox3, euthymic affect Lymphatic: no cervical or axillary lymphadenopathy Results & Data Results & Data Vital Signs (Past 12 Hours) Vital Signs Temp Pulse Resp BP Pulse Ox O2 Del Method 03/20/24 14:17 36.2 C L 69 16 131/72 96 Room Air 03/20/24 07:01 36.3 C L 66 16 132/68 97 Room Air Laboratory Results Short CBC 03/19/24 03/20/24 Range/Units 18:15 06:55 WBC 21.11 H 10.44 D (4.8-10.8) K/ul Hgb 13.6 L 12.3 L (14.0-18.0) g/dl Hct 41.5 L 37.6 L (42.0-52.0) % Plt Count 223 194 (130-400) K/uL BMP 03/19/24 03/20/24 18:15 06:55 Sodium 136 135 L Potassium 4.0 4.0 Chloride 106 107 Carbon Dioxide 21 23 BUN 24 H 19 Creatinine 1.10 0.96 Glucose 137 H 130 H Calcium 8.6 7.6 L Cardiac Enzymes 03/19/24 03/20/24 Range/Units 18:15 06:55 Total Creatine Kinase 706 H 840 H (30-223) U/L Liver Function 03/19/24 Range/Units 18:15 Total Bilirubin 0.7 (0.2-1.0) mg/dl AST 27 (13-39) U/L ALT 19 (7-52) U/L Alkaline Phosphatase 83 (34-104) U/L Albumin 4.0 (3.4-5.0) gm/dl Urine 03/20/24 Range/Units 07:00 Urine Color Yellow Urine Appearance Clear (Clear) Urine pH 6.0 (4.5-7.5) Ur Specific [place] > 1.045 H (1.000-1.030) Urine Protein Trace H (Negative) Urine Glucose (UA) Trace H (Negative) Medications Administered Current Inpatient Medications Acetaminophen (Acetaminophen 325 Mg Tab) 650 mg PO QID PRN PRN Reason: pain/fever Stop: 04/18/24 19:29 Sodium Chloride (Nss) 1,000 mls @ 75 mls/hr IV .[id number] GIUSEPPE Stop: 03/21/24 08:59 Last Admin: 03/20/24 08:51 Dose: 75 mls/hr Ondansetron HCl (Ondansetron Inj 2 Mg/Ml 2 Ml Vial) 4 mg IV Q6H PRN PRN Reason: Nausea And Vomiting Stop: 04/19/24 08:40 Last Admin: 03/20/24 08:51 Dose: 4 mg Tamsulosin HCl (Tamsulosin Hcl 0.4 Mg Cap) 0.4 mg PO DAILY GIUSEPPE Stop: 04/19/24 08:59 Last Admin: 03/20/24 07:14 Dose: 0.4 mg Tramadol HCl (Tramadol Hcl 50 Mg Tablet) 25 - 50 mg PO Q4H PRN PRN Reason: Pain Stop: 04/18/24 19:29 Last Admin: 03/20/24 13:42 Dose: 50 mg (1) Accident caused by farm tractor Encounter type: initial encounter Qualified Code(s): W30.9XXA - Contact with unspecified agricultural machinery, initial encounter (3) Closed pelvic ring fracture Encounter type: initial encounter Qualified Code(s): S32.810A - Multiple fractures of pelvis with stable disruption of pelvic ring, initial encounter for closed fracture (4) Closed sacral fracture Encounter type: initial encounter (5) Fracture of transverse process of lumbar vertebra Encounter type: initial encounter Fracture type: closed Qualified Code(s): S32.009A - Unspecified fracture of unspecified lumbar vertebra, initial encounter for closed fracture
--- OUTSIDE RECORDS SUMMARY | 2024-03-20 18:16 | External Medical Summary | Summary of Care ---
Author Name Unknown Organization [facility] Address [address] [facility] [place] [address] Phone [phone] Care Team Providers Care Wheel Presser Name Role Phone Erlin Banks MD Primary Care Provider Reason for Visit * Precert (Within 30 days (routine)) - Authorized Specialty Diagnoses / Procedures Referred By Steve waters Referred To Contact Dermatology Diagnoses Unspecified contact dermatitis, unspecified cause Procedures Dupilumab (Dupixent) Initiation 300mg/2ml Pen - 600mg once then 300mg every two weeks Kenzie Martinez PA-C [address] [place] [address] [place] [phone] Kenzie Martinez PA-C [address] [place] [address] [place] [id number] Referral ID Status Reason Start Date Expiration Date V isits Requested Visits Authorized [id number] Authorized Precert 01/26/2024 07/27/[phone] Encounter Details Date Type Department Care Team (Late st Contact Info) Description 03/13/2024 10:00 AM EDT Nurse Only Pulmonary Medicine, [facility] [address] [place] [phone] [address], Nurse Pulmonary [address] [place] [phone] Arrived Allergies Active Allergy Reactions Criticality Noted Date Comments Amoxicillin-Pot Clavulanate 09/21/20 22 vomiting Cefdinir Diarrhea 11/11/2018 Other Allergy (See Comments) Rash 07/24/2023 2+ Bacitracin - patch testing 07/24/23 documented as of this encounter (statuses as of 03/13/2024) Medications Medication Sig Dispensed Refills Start Date End Date Status Fluticasone Furoate-Vilanterol 200-25 MCG/ACT Inhalation Aerosol Powder Breath Activated (BREO ellipta)Indications :Severe persistent asthma without complication INHALE ONE PUFF BY MOUTH EVERY DAY 60 Blister Dosing Unit 11 04/19/2023 Active Simvastatin 20 MG Oral Tablet (Zocor)Indications: Mixed dyslipidemia,Hyperl ipidemia with target LDL less than 100 TAKE ONE TABLET BY MOUTH AT BEDTIME 90 Tablet 3 05/01/2023 Active Clobetasol Propionate 0.05 % External Ointment (Temovate)Indicatio ns: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 agents Apply 2x daily (or more if itchy instead of scratching) to rash on trunk/arms/legs until resolved, then when flaring 60 g 07/24/2023 Active Airsupra 90-80 MCG/ACT Inhalation Aerosol (Albuterol-Budesoni de) Take 2 doses by mouth up to 6 times a day as needed for shortness of breath, wheezing or cough 10.7 g 2 11/27/2023 Active Ipratropium-Albuter ol 0.5-2.5 (3) MG/3ML Inhalation Solution (Duoneb)Indications :Moderate persistent asthma with exacerbation INHALE ONE VIAL VIA NEBULIZER FOUR TIMES DAILY 360 mL 5 12/11/2023 Active Triamcinolone Acetonide 0.1 % External Cream (Aristocort)Indicat ions:Dermatitis Apply topically to affected area 2 times a day. Apply 2x daily to itchy/rashy areas until resolved, then when flaring (use more often then clobetasol) 454 g 01/21/2024 Active Tamsulosin HCl 0.4 MG Oral Capsule (Flomax)Indications :BPH without obstruction/lower urinary tract symptoms Take 1 Capsule by mouth in the morning. Every morning.. 90 Capsule 1 03/06/2024 Active Fasenra 30 MG/ML Subcutaneous Solution Prefilled Syringe (Benralizumab)Indic ations:Severe persistent asthma without complication,Severe persistent asthma with acute exacerbation Inject 1 mL under the skin every 8 weeks. 1 mL 8 03/06/2024 Active Hospital, Clinic, or Other Facility Administered Medication Ordered Dose Route Frequency Start Date End Date Status Albuterol Sulfate (ACCUNEB) nebulizer solution 0.63 mgIndications:Moderate persistent asthma without complication 0.63 mg NEBULIZER [id number] 08/21/2018 Active Albuterol Sulfate (Proventil) (2.5 MG/3ML) 0.083% inhalation solution 2.5 mgIndications:Severe persistent asthma with acute exacerbation 2.5 mg NEBULIZER Q4H PRN 11/17/2021 Active documented as of this encounter (statuses as of 03/13/2024) Active Problems Problem Noted Date Diagnosed Date Eosinophilic asthma 11/24/2022 Arthritis of finger of left hand 07/16/2020 Carpal tunnel syndrome, bilateral 07/16/2020 Primary osteoarthritis of both hands 06/20/2020 Severe persistent asthma without complication At risk for aspiration 12/19/2018 Bronchiectasis without complication 09/20/2018 Deviated nasal septum 07/26/2017 Mixed rhinitis 08/03/2015 Sensorineural hearing loss of both ears Dyslipidemia, goal LDL below 100 documented as of this encounter (statuses as of 03/13/2024) Resolved Problems Problem Noted Date Diagnosed Date Resolved Date Gastroesophageal reflux dise ase without esophagitis 10/13/2019 03/09/2021 Moderate persistent asthma with exacerbation 9 01/13/2019 Status post functional endos copic sinus surgery 08/16/2017 11/20/2019 Chronic pansinusitis 07/26/2017 020 Hypertrophy of both inferior nasal turbinates 07/26/20 17 06/20/2020 Hyposmia 07/26/2017 06/20/2020 Tubular adenoma of colon 02/01/2017 Overview: 4 tubular adenomas, repeat 3 years. Calculus of gallbladder with out mention of cholecystitis or obstruction 11/17/2010 04/22/2015 Mixed dyslipidemia 01/06/2010 9 Dyslipidemia, goal to be determined 09/21/2009 01/06/2010 Overview: Per Lipid Taxonomy. CHOL 224, HDL 32, NON HDL 192, LDL 154, TRIG 189 Tinea corporis 09/07/2009 08/25/2013 Vitamin D deficiency 07/08/2009 017 Overview: Vitamin D 20.1 Mixed dyslipidemia 07/08/2009 9 Overview: Per Lipid Taxonomy. CHOL 224, HDL 32, NON HDL 192, LDL 154, TRIG 189 ADVANCE DIRECTIVE INFORMATION 03/26/2008 06/20/2020 Overview: Yes, Patient instructed to provide copy of advance directive for provider to review and to be scanned into Electronic Medical Record PRIM OPEN ANGLE GLAUCOMA 08/18/200203/2020 FX CLAVICLE SHAFT-CLOSED 2002 NUMMULAR DERMATITIS 06/20/20 20 Moderate persistent asthma w ith acute exacerbation 12/30/2018 Atopic dermatitis 05/29/2018 documented as of this encounter (statuses as of 03/13/2024) Immunizations Name Administration Dates Next Due COVID-19 mRNA, LNP-s, No Pre serve, 2-Dose Series (Shoot Extreme) 02/01/2021,01/06/2021 Pneumococcal Conjugate Vacc, 13 Valent (Prevnar) 01/15/2015 Pneumococcal Polysaccharide PPV23 (Pneumovax) Season Influenza, Quad, PF, Adjuvanted, 65+ Yrs, IM (FLUAD) 08/06/2020 Seasonal Influenza, PF, 6 M & above, IM , (FluLaval or Fluzone) 07/04/2018,09/27/2017 Seasonal Influenza, Quadrivalent Hd (Fluzone Hd) 08/31/2022 Seasonal Influenza, Quadrivalent, No Preserve, I M 08/10/2016,09/02/2015 Seasonal Influenza, Split, IIV3, With Preserve, Inj 07/13/2009 Seasonal Influenza, Trivalent, Adjuvanted, 65+ y rs 09/10/2019 TD, Preservative Free 07/02/2008 TDAP (age 10 and older)(Boostrix) 03/06/2023, Varicella Zoster Vaccine (Adult) 09/17/2013 Zoster Vaccine Recombinant (Shingrix) 03/24/2020 ,12/17/2019 documented as of this encounter Social History Tobacco Use Types Packs/Day Years Used Date Smoking Tobacco: Never Smokeless Tobacco: Never Comments:no passive smoke Alcohol Use Standard Drinks/Week Comments No 0 (1 standard drink = 0.6 oz pur e alcohol) PHQ-2 Answer Date Recorded PHQ Adult Total Score 0 03/06/2024 Hunger Vital Sign Answer Date Recorded Worried About Running Out of Food in the Last Ye ar Never true 05/22/2019 Ran Out of Food in the Last Year Never true 05/22/2019 Sex and Gender Information Value Date Recorded Sex Assigned at Male 03/25/2020 2:10 PM EDT Gender Identity Male 03/25/2020 2:10 PM EDT Sexual Orientation Straight 03/25/2020 2: 10 PM EDT Job Start Date Occupation Industry Not on file Not on file Not on file documented as of this encounter Last Filed Vital Signs Vital Sign Reading Time Taken Comments Blood Pressure - - Pulse 62 03/13/2024 9:40 AM EDT Temperature 36.4 C (97.6 F) 03/13/2024 9:40 AM ED T Respiratory Rate 16 03/13/2024 9:40 AM EDT Oxygen Saturation 98% 03/13/2024 9:40 AM EDT Inhaled Oxygen Concentration - - Weight - - Height - - Body Mass Index - - documented in this encounter Plan of Treatment Upcoming Encounters Date Type Department Care Team (Late st Contact Info) Description 05/16/2024 1:00 PM EDT Nurse Only Pulmonary Medicine, [facility] [address] [facility] [place] [phone] Gw, Nurse Pulmonary [address] [facility] [place] [phone] 10/31/2024 10:40 AM EST Office Visit Family Medicine [facility] [place] [place] [phone] Megan Flores MD [address] [place] [address] [place] [phone] Health Maintenance Due Date Last Done Comments Colonoscopy 02/02/2020 02/01/2017, 01/14, 08/13/2008 COVID-19 Vaccine ( season) 2023 02/01/2021, 01/06/2021 Influenza Vaccine (FLU shot) (Season Ended) 2024 08/31/2022, 08/06/2020, 09/10/2019, Additional history exists Depression Screening 03/06/2025 03/06/2024 DTaP,Tdap,and Td Vaccines (3 - Td or Tdap) 03/06/2033 03/06/2023, 09/02/2018, 07/02/2008 Pneumococcal Vaccine: 65+ Years Completed 01/15/2015, 07/02/2008, 08/18/2002 Zoster Vaccines Completed 03/24/2020, 01/2020, 09/17/2013 GARDASIL-HPV IMMUNIZATION SERIES Aged Out No longer eligible based on patient's age to complete this topic Hepatitis B Aged Out No longer eligi ble based on patient's age to complete this topic MENINGOCOCCAL (MENACTRA/MENVEO) Aged Out No longer eligible based on patient's age to complete this topic documented as of this encounter Medical Devices Not on filedocumented as of this encounter Administered Medications Inactive Administered Medications - up to 3 most recent administrations Medication Order MAR Action Action Date Dose Rate Site Benralizumab (Fasenra) prefilled syringe 30 mg 30 mg, Subcutaneous, [id number], First dose on Sun04/23/23 at 0000, Last dose on Sun01/28/24 at 0000, For 6 doses Given 03/13/2024 9:43 AM EDT 30 mg Arm L eft Upper Given 01/03/2024 1:41 PM EDT 30 mg Ar m Left Upper Given 11/01/2023 2:36 PM EST 30 mg Ar m Left Upper documented in this encounter Care Teams Wheel Presser Relationship Specialty Start Date End Date Erlin Banks MD [address] [place] [address] [place] [phone] PCP - General 02/21/08 documented as of this encounter
--- OUTSIDE RECORDS SUMMARY | 2024-03-20 18:16 | External Medical Summary | Summary of Care ---
Author Name Unknown Organization [facility] Address [address] [facility] [place] [address] Phone [phone] Care Team Providers Care Compliance Coordinator Name Role Phone Erlin Banks MD Primary Care Provider [phone] Reason for Visit * Reason Onset Date Comments Appointment 03/12/2024 Fasenra inj Encounter Details Date Type Department Care Team (Late st Contact Info) Description 03/12/2024 Telephone Pulmonary Medicine, [facility] [address] [place] [address] Leonor Kitchen CRNP [address] [place] [address] Appointment (Fasenra inj) Allergies Active Allergy Reactions Criticality Noted Date Comments Amoxicillin-Pot Clavulanate 09/21/20 22 vomiting Cefdinir Diarrhea 11/11/2018 Other Allergy (See Comments) Rash 07/24/2023 2+ Bacitracin - patch testing 07/24/23 documented as of this encounter (statuses as of 03/12/2024) Medications Medication Sig Dispensed Refills Start Date [...] persistent asthma without complication 0.63 mg NEBULIZER [id number] 08/21/2018 Acti ve Albuterol Sulfate (Proventil) (2.5 MG/3ML) 0.083% inhalation solution 2.5 mgIndications:Severe persistent asthma with acute exacerbation 2.5 mg NEBULIZER Q4H PRN 11/17/2021 Active Benralizumab (Fasenra) prefilled syringe 30 mgIndications:Severe persistent asthma without complication 30 mg SC [id number] 04/23/2023 03/23/2024 Acti ve documented as of this encounter (statuses as of 03/12/2024) Active Problems Problem Noted Date Diagnosed Date [...] as of this encounter (statuses as of 03/12/2024) Resolved Problems Problem Noted Date Diagnosed Date [...] as of this encounter (statuses as of 03/12/2024) Immunizations Name Administration Dates Next Due COVID-19 mRNA, LNP-s, No Pre serve, 2-Dose Series (Pfizer) 02/01/2021,01/06/2021 Pneumococcal Conjugate Vacc, 13 Valent (Prevnar) [...] on file documented as of this encounter Miscellaneous Notes * Telephone Encounter - Alberto Mosher OSA - 03/12/2024 1:41 PM EDT Nurse visit mack'd 03/13 at . * Telephone Encounter - Radha Espinoza LPN - 03/12/2024 1:18 PM EDT Pt's Ekta arrived at the office. Please call the pt to set up a nurse visit. Pt is expecting the call for the appt documented in this encounter Plan of Treatment Upcoming Encounters Date Type Department Care Team (Late st Contact Info) Description 03/13/2024 10:00 AM EDT Nurse Only Pulmonary Medicine, [facility] [address] [facility] [place] [address] , Nurse Pulmonary [address] [facility] [place] [address] 10/31/2024 10:40 AM EST Office Visit Family Medicine [address] [place] [address] Megan Flores MD [address] [place] [address] [place] [address] Health Maintenance Due Date Last Done Comments [...] Not on filedocumented as of this encounter Care Teams Compliance Coordinator Relationship Specialty Start Date End Date Erlin Banks MD [address] [place] [address] [place] [phone] PCP - General 02/21/08 documented as of this encounter
--- OUTSIDE RECORDS SUMMARY | 2024-03-20 18:16 | External Medical Summary | Summary of Care ---
Author Name Unknown Organization [facility] Address [address] [facility] [place] [address] Phone [phone] Care Team Providers Care Glass Lined Tank Repairer Name Role Phone Erlin Banks MD Primary Care Provider [phone] Encounter Details Date Type Department Care Team (Late st Contact Info) Description 03/06/2024 Refill Pulmonary Medicine, [facility] [address] [place] [address] Leonor Solitario CRNP [address] [place] [address] Severe persistent asthma without complication; Severe persistent asthma with acute exacerbation Allergies Active Allergy Reactions Criticality Noted Date Comments Amoxicillin-Pot Clavulanate 09/21/20 22 vomiting Cefdinir Diarrhea 11/11/2018 Other Allergy (See Comments) Rash 07/24/2023 2+ Bacitracin - patch testing 07/24/23 documented as of this encounter (statuses as of 03/06/2024) Medications Medication Sig Dispensed Refills Start Date End Date Status Fluticasone Furoate-Vilanterol 200-25 MCG/ACT Inhalation Aerosol Powder Breath Activated (BREO ellipta)Indication s:Severe persistent asthma without complication INHALE ONE PUFF BY MOUTH EVERY DAY 60 Blister Dosing Unit 11 04/19/2023 Active Simvastatin 20 MG Oral Tablet (Zocor)Indications :Mixed dyslipidemia,Hyper lipidemia with target LDL less than 100 TAKE ONE TABLET BY MOUTH AT BEDTIME 90 Tablet 3 05/01/2023 Active Clobetasol Propionate 0.05 % External Ointment (Temovate)Indicati ons: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 agents Apply 2x daily (or more if itchy instead of scratching) to rash on trunk/arms/legs until resolved, then when flaring 60 g 07/24/2023 Active Airsupra 90-80 MCG/ACT Inhalation Aerosol (Albuterol-Budeson refugio) Take 2 doses by mouth up to 6 times a day as needed for shortness of breath, wheezing or cough 10.7 g 2 11/27/2023 Active Ipratropium-Albute rol 0.5-2.5 (3) MG/3ML Inhalation Solution (Duoneb)Indication s:Moderate persistent asthma with exacerbation INHALE ONE VIAL VIA NEBULIZER FOUR TIMES DAILY 360 mL 5 12/11/2023 Active Triamcinolone Acetonide 0.1 % External Cream (Aristocort)Indica tions:Dermatitis Apply topically to affected area 2 times a day. Apply 2x daily to itchy/rashy areas until resolved, then when flaring (use more often then clobetasol) 454 g 01/21/2024 Active Tamsulosin HCl 0.4 MG Oral Capsule (Flomax)Indication s:BPH without obstruction/lower urinary tract symptoms Take 1 Capsule by mouth in the morning. Every morning.. 90 Capsule 1 03/06/2024 Active Fasenra 30 MG/ML Subcutaneous Solution Prefilled Syringe (Benralizumab)Oksana cations:Severe persistent asthma without complication,Sever e persistent asthma with acute exacerbation Inject 1 mL under the skin every 8 weeks. 1 mL 8 03/06/2024 Active Fasenra 30 MG/ML Subcutaneous Solution Prefilled Syringe (Benralizumab)Oksana cations:Severe persistent asthma without complication,Sever e persistent asthma with acute exacerbation Inject 1 mL under the skin every 8 weeks. 1 mL 5 01/09/2024 4 Discontinue d(Refill) Hospital, Clinic, or Other Facility Administered Medication Ordered Dose Route Frequency Start Date End Date Status Albuterol Sulfate (ACCUNEB) nebulizer solution 0.63 mgIndications:Moderate persistent asthma without complication 0.63 mg NEBULIZER [id number] 08/21/2018 Acti ve Albuterol Sulfate (Proventil) (2.5 MG/3ML) 0.083% inhalation solution 2.5 mgIndications:Severe persistent asthma with acute exacerbation 2.5 mg NEBULIZER Q4H PRN 11/17/2021 Active Benralizumab (Fasenra) prefilled syringe 30 mgIndications:Severe persistent asthma without complication 30 mg SC [id number] 04/23/2023 03/23/2024 Acti ve documented as of this encounter (statuses as of 03/06/2024) Active Problems Problem Noted Date Diagnosed Date [...] as of this encounter (statuses as of 03/06/2024) Resolved Problems Problem Noted Date Diagnosed Date [...] as of this encounter (statuses as of 03/06/2024) Immunizations Name Administration Dates Next Due COVID-19 mRNA, LNP-s, No Pre serve, 2-Dose Series (Vitrinepix) 02/01/2021,01/06/2021 Pneumococcal Conjugate Vacc, 13 Valent (Prevnar) [...] pur e alcohol) PHQ-2 Answer Date Recorded PHQ-2 Score -1 07/04/2020 Hunger Vital Sign Answer Date Recorded Worried [...] encounter Miscellaneous Notes * Telephone Encounter - Leonor Solitario CRNP - 03/06/2024 12:11 PM EDT Signed Prescriptions: Disp Refills Fasenra 30 MG/ML Subcutaneous Solution Pre*1 mL 8 Sig: Inject 1 mL under the skin every 8 weeks.Authorizing Provider: LEONOR SOLITARIO * Telephone Encounter - Radha Espinoza LPN - 03/06/2024 11:36 AM EDT [facility] was called d/t the office not receiving the pt's shipment of Fasenra. [facility] states they will need a new Rx for the medication and a new provider form filled out. Office fax number was provided. Provider form is being faxed. Form has been filled out and given to the provider. Fasenra Rx has been pended for approvel documented in this encounter Plan of Treatment Upcoming Encounters Date Type Department Care Team (Late st Contact Info) Description 03/07/2024 1:00 PM EDT Nurse Only Pulmonary Medicine, [facility] [address] [facility] [place] [address] [address], Nurse Pulmonary [address] [facility] [place] [address] 10/31/2024 10:40 AM EST Office Visit Family Medicine [address] [place] [phone] Megan Flores MD [address] [place] [address] [place] [address] Health Maintenance Due Date Last Done Comments Colonoscopy 02/02/2020 02/01/2017, 01/14, 08/13/2008 COVID-19 Vaccine (3 - 2022- season) 2023 02/01/2021, 01/06/2021 Influenza Vaccine (FLU [...] Not on filedocumented as of this encounter Visit Diagnoses Diagnosis Severe persistent asthma without complication Severe persistent asthma with acute exacerbation Unspecified asthma, with exacerbation documented in this encounter Care Teams Glass Lined Tank Repairer Relationship Specialty Start Date End Date Erlin Banks MD [address] [place] [address] [place] [address] PCP - General 02/21/08 documented as of this encounter
--- OUTSIDE RECORDS SUMMARY | 2024-03-20 18:17 | External Medical Summary | Summary of Care ---
Author Name Unknown Organization [facility] Address [address] [facility] [place] [address] Phone [phone] Care Team Providers Care Clothespin Machine Operator Name Role Phone Erlin Banks MD Primary Care Provider [phone] Reason for Visit * Reason Onset Date Comments Precert Approved 01/22/2024 Dupixent Encounter Details Date Type Department Care Team (Late st Contact Info) Description 01/22/2024 Telephone Dermat[address] [place] [address] Kenzie Martinez PA-C [address] [place] [address] [place] [address] Precert Approved (Dupixent ) Allergies Active Allergy Reactions Criticality Noted Date Comments Amoxicillin-Pot Clavulanate 09/21/20 22 vomiting Cefdinir Diarrhea 11/11/2018 Other Allergy (See Comments) Rash 07/24/2023 2+ Bacitracin - patch testing 07/24/23 documented as of this encounter (statuses as of 01/28/2024) Medications Medication Sig Dispensed Refills Start Date End Date Status Fluticasone Furoate-Vilanterol 200-25 MCG/ACT Inhalation Aerosol Powder Breath Activated (BREO ellipta)Indication s:Severe persistent asthma without complication INHALE ONE PUFF BY MOUTH EVERY DAY 60 Blister Dosing Unit 11 04/19/2023 Active Cetirizine HCl 10 MG Oral Tablet (ZyrTEC Allergy)Indication s:Itching Take 1 Tablet by mouth in the morning. 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 Every morning.. 90 Capsule 1 08/30/2023 Active Benzonatate 100 MG Oral CapsuleIndications :Viral URI with cough Take one capsule three times a day as needed for cough 30 Capsule 1 08/30/2023 Active Additional Information Patient not taking.Reported on 11/27/2023 Promethazine-DM 6.25-15 MG/5ML Oral SyrupIndications:V iral URI with cough Take 5 mL by mouth 4 times a day as needed for Cough. 120 mL 1 08/30/2023 Active Additional Information Patient not taking.Reported on 11/27/2023 Airsupra 90-80 MCG/ACT Inhalation Aerosol (Albuterol-Budeson refugio) Take 2 doses by mouth up to 6 times a day as needed for shortness of breath, wheezing or cough 10.7 g 2 11/27/2023 Active Ipratropium-Albute rol 0.5-2.5 (3) MG/3ML Inhalation Solution (Duoneb)Indication s:Moderate persistent asthma with exacerbation INHALE ONE VIAL VIA NEBULIZER FOUR TIMES DAILY 360 mL 5 12/11/2023 Active Fasenra 30 MG/ML Subcutaneous Solution Prefilled Syringe (Benralizumab)Oksana cations:Severe persistent asthma without complication,Sever e persistent asthma with acute exacerbation Inject 1 mL under the skin every 8 weeks. 1 mL 01/09/2024 Active Triamcinolone Acetonide 0.1 % External Cream (Aristocort)Indica tions:Dermatitis Apply topically to affected area 2 times a day. Apply 2x daily to itchy/rashy areas until resolved, then when flaring (use more often then clobetasol) 454 g 0 01/21/2024 Active Hospital, Clinic, or Other Facility Administered Medication Ordered Dose Route Frequency Start Date End Date Status Albuterol Sulfate (ACCUNEB) nebulizer solution 0.63 mgIndications:Moderate persistent asthma without complication 0.63 mg NEBULIZER [id number] 08/21/2018 Acti ve Albuterol Sulfate (Proventil) (2.5 MG/3ML) 0.083% inhalation solution 2.5 mgIndications:Severe persistent asthma with acute exacerbation 2.5 mg NEBULIZER Q4H PRN 11/17/2021 Active Benralizumab (Fasenra) prefilled syringe 30 mgIndications:Severe persistent asthma without complication 30 mg SC [id number] 04/23/2023 03/23/2024 Acti ve documented as of this encounter (statuses as of 01/28/2024) Active Problems Problem Noted Date Diagnosed Date [...] as of this encounter (statuses as of 01/28/2024) Resolved Problems Problem Noted Date Diagnosed Date [...] as of this encounter (statuses as of 01/28/2024) Immunizations Name Administration Dates Next Due COVID-19 mRNA, LNP-s, No Pre serve, 2-Dose Series (Pfizer) 02/01/2021,01/06/2021 Pneumococcal Conjugate Vacc, 13 Valent (Prevnar) 01/15/2015 Pneumococcal Polysaccharide PPV23 (Pneumovax) ,08/18/2002 Season Influenza, Quad, PF, Adjuvanted, 65+ Yrs, IM (FLUAD) 08/06/2020 Seasonal Influenza, PF, 6 M & above, IM , (FluLaval or Fluzone) 07/04/2018,09/27/2017 Seasonal Influenza, Quadrivalent Hd (Fluzone Hd) 08/31/2022 Seasonal Influenza, Quadrivalent, No Preserve, I M 08/10/2016,09/02/2015 Seasonal Influenza, Split, IIV3, With Preserve, Inj 07/13/2009,08/18/2002 Seasonal Influenza, Trivalent, Adjuvanted, 65+ y rs [...] encounter Miscellaneous Notes * Telephone Encounter - Natty Ballesteros RPh - 01/28/2024 2:28 PM EDT Dupixent approved, but the medication has a high cost. Patient assistance team will be reaching outto assist with cost and I will scheduled education visit once medication is affordable. Natty Ballesteros, PharmD Medication Therapy Disease Management (MTD) Dermatology Clinical Pharmacist 01/28/2024, 2:28 PM * Telephone Encounter - Mariam Callahan OSA - 01/24/2024 12:07 PM EDT REQ AUTH * Telephone Encounter - Natty Ballesteros RPh - 01/23/2024 7:53 AM EDT [facility] Dermatology Pre-cert Request Please see Dermatology pre-cert request - route referral message with approval, denial or questionsback to "Dermatology Pharmacist Aron [[id number]]". 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 Would like to consider Dupixent (switch from Fasenra) to see if his skin could be cleared up better. Curious about the cost, told him that pharmacy would be reaching out to him and can provide him with the information. Kenzie ROMO PA-C Dermatology Pre-Cert Request Medication/Disease State Information: Medication: Dupilumab (Dupixent) Initiation 300mg/2ml Pen - 600mg once then 300mg every two weeks (Day Supply: 8mL per 42 days) Diagnosis (including ICD-10): Contact dermatitis - Unspecified contact dermatitis, unspecific [id number] Site of Care: specialty medication - route to [id number]. Referral to pharmacist for: Pharmacist Co-management See corresponding visit note(s) for additional supporting clinical information. Administration Location if Injection: Patient Administered at Home Is the patient in a facility?: No Office Information: Prescriber: Kenzie ROMO PA-C * Telephone Encounter - Lidya Dewitt OSA - 01/22/2024 3:54 PM EDT Pt returning provider's call. Pt asked that I let Kenzie know that his cell would be the best to call him on as he will be out of the house today/tomorrow. Home: Thank you * Telephone Encounter - Kenzie Martinez PA-C - 01/22/2024 11:56 AM EDT Left non specific message for pt to call back to discuss lab results. CBC and TSH look good, no further lab work needed at this time. Pt to decide if he would like to switch from Fasenra to Dupixent to see if rash can be further improved. Kenzie ROMO PA-C documented in this encounter Plan of Treatment Upcoming Encounters Date Type Department Care Team (Late st Contact Info) Description 03/06/2024 10:00 AM EDT Office Visit Family Medicine [address] [place] [address] Megan Flores MD [address] [place] [address] [place] [address] 03/07/2024 1:30 PM EDT Nurse Only Pulmonary Medicine, [facility] [address] [place] [address] , Nurse Pulmonary [address] [place] [address] Health Maintenance Due Date Last Done Comments COLONOSCOPY-EVERY 3 YRS AGES 18-100 02/02/2020 02/01/2017, 02/01/2017, 11/23/2011 (Refused), Additional history exists Depression Screening 08/25/2021 08/25/2020 COVID-19 Vaccine ( season) 2023 02/01/2021, 01/06/2021 Influenza Vaccine (FLU shot) (Season Ended) 2024 08/31/2022, 08/06/2020, 09/10/2019, Additional history exists DTaP,Tdap,and Td Vaccines (3 - Td or [...] filedocumented as of this encounter Care Teams Clothespin Machine Operator Relationship Specialty Start Date End Date Erlin Banks MD [address] [place] [address] [place] [phone] PCP - General 02/21/08 documented as of this encounter
--- OUTSIDE RECORDS SUMMARY | 2024-03-20 18:17 | External Medical Summary | Summary of Care ---
Author Name Unknown Organization [facility] Address [address] [facility] [place] [address] Phone [phone] Care Team Providers Care Delivery Person Name Role Phone Erlin Banks MD Primary Care Provider [phone] Reason for Visit * Reason Comments eRx-Medication Refill Encounter Details Date Type Department Care Team (Late st Contact Info) Description 03/04/2024 Refill Family Medicine [address] [place] [phone] Erlin Banks MD [address] [place] [address] [place] [address] Urinary frequency Allergies Active Allergy Reactions Criticality Noted Date [...] then when flaring 60 g 07/24/2023 Active Tamsulosin HCl 0.4 MG Oral Capsule (Flomax)Indications :Urinary frequency Take 1 Capsule by mouth in the morning. Every morning.. 90 Capsule 1 08/30/2023 Active Airsupra 90-80 MCG/ACT Inhalation Aerosol (Albuterol-Budesoni [...] every 8 weeks. 1 mL 5 01/09/2024 Active Triamcinolone Acetonide 0.1 % External Cream (Aristocort)Indicat ions:Dermatitis Apply topically to affected area 2 times a day. Apply 2x daily to itchy/rashy areas until resolved, then when flaring (use more often then clobetasol) 454 g 01/21/2024 Active Hospital, Clinic, or Other Facility Administered Medication Ordered Dose Route Frequency Start Date End Date Status Albuterol Sulfate (ACCUNEB) nebulizer solution 0.63 mgIndications:Moderate persistent asthma without complication 0.63 mg NEBULIZER [id number] 08/21/2018 Acti ve Albuterol Sulfate (Proventil) (2.5 MG/3ML) 0.083% inhalation solution 2.5 mgIndications:Severe persistent asthma with acute exacerbation 2.5 mg NEBULIZER Q4H PRN 11/17/2021 Active Benralizumab (Fasenra) prefilled syringe 30 mgIndications:Severe persistent asthma without complication 30 mg SC [id number] 04/23/2023 03/23/2024 Acti ve documented as of [...] FX CLAVICLE SHAFT-CLOSED 2002 NUMMULAR DERMATITIS 06/20/20 Moderate persistent asthma w ith acute exacerbation 12/30/2018 Atopic dermatitis 05/29/2018 documented as of this encounter (statuses as of 03/06/2024) Immunizations Name Administration Dates Next Due COVID-19 mRNA, LNP-s, No Pre serve, 2-Dose Series (Next One's On Me (NOOM)) 02/01/2021,01/06/2021 Pneumococcal Conjugate Vacc, 13 Valent (Prevnar) [...] encounter Miscellaneous Notes * Telephone Encounter - Roz Shelton RP - 03/06/2024 10:19 AM EDTRefused Prescriptions: Disp Refills Tamsulosin HCl 0.4 MG Oral Capsule [Pharma*90 Cap*1 Sig: TAKE ONE CAPSULE BY MOUTH EVERY MORNINGRefused By: TUNDE GUY NReason for Refusal: Request alreadyresponded to by other means * Telephone Encounter - Rosa Walsh RPh - 03/05/2024 2:20 PM EDT Postponed to 03/06/24 as pt has appt with new PCP on 03/06/24 @10am documented in this encounter Plan of Treatment Upcoming Encounters Date Type Department Care Team (Late st Contact Info) Description 03/07/2024 1:00 PM EDT Nurse Only Pulmonary Medicine, [facility] [address] [place] [address] , Nurse Pulmonary [address] [place] [address] Health Maintenance Due Date Last Done Comments Colonoscopy 02/02/2020 02/01/2017, 01/14, 08/13/2008 COVID-19 Vaccine ( season) 2023 02/01/2021, 01/06/2021 Influenza Vaccine (FLU shot) (Season Ended) 2024 08/31/2022, 08/06/2020, 09/10/2019, Additional history exists Depression Screening 03/06/2025 03/06/2024, 08/25/20 20 DTaP,Tdap,and Td Vaccines (3 - Td or [...] as of this encounter Visit Diagnoses Diagnosis Urinary frequency documented in this encounter Care Teams Delivery Person Relationship Specialty Start Date End Date Erlin Banks MD [address] [place] [address] [place] [phone] PCP - General 02/21/08 documented as of this encounter
--- OUTSIDE RECORDS SUMMARY | 2024-03-20 18:17 | External Medical Summary | Summary of Care ---
Author Name Unknown Organization [facility] Address [address] [facility] [place] [address] Phone [phone] Care Team Providers Care Psychic Reader Name Role Phone Erlin Banks MD Primary Care Provider [phone] Reason for Visit * Reason Onset Date Comments Precert Approved 01/22/2024 Dupixent Encounter Details Date Type Department Care Team (Late st Contact Info) Description 01/22/2024 Telephone Dermatology [address] [place] [phone] Kenzie Martinez PA-C [address] [place] [address] [place] [phone] Precert Approved (Dupixent ) Allergies Active Allergy Reactions Criticality Noted Date Comments Amoxicillin-Pot Clavulanate 09/21/20 22 vomiting Cefdinir Diarrhea 11/11/2018 Other Allergy (See Comments) Rash 07/24/2023 2+ Bacitracin - patch testing 07/24/23 documented as of this encounter (statuses as of 02/27/2024) Medications Medication Sig Dispensed Refills Start Date [...] persistent asthma without complication 0.63 mg NEBULIZER [id number] 08/21/2018 Acti ve Albuterol Sulfate (Proventil) (2.5 MG/3ML) 0.083% inhalation solution 2.5 mgIndications:Severe persistent asthma with acute exacerbation 2.5 mg NEBULIZER Q4H PRN 11/17/2021 Active Benralizumab (Fasenra) prefilled syringe 30 mgIndications:Severe persistent asthma without complication 30 mg SC [id number] 04/23/2023 03/23/2024 Acti ve documented as of this encounter (statuses as of 02/27/2024) Active Problems Problem Noted Date Diagnosed Date [...] as of this encounter (statuses as of 02/27/2024) Resolved Problems Problem Noted Date Diagnosed Date [...] as of this encounter (statuses as of 02/27/2024) Immunizations Name Administration Dates Next Due COVID-19 [...] Telephone Encounter - Natty Ballesteros RPh - 02/27/2024 3:49 PM EDT Patient advised patient assistance team that he wants to "sit on it a while" to see if he wants to start Dupixent. They advised him to call back if he plans to proceed. Routing to provider to make aware. Closing out for not but happy to help coordinate if he decides to proceed in the future. Natty Ballesteros PharmD Medication Therapy Disease Management ([facility]) Dermatology Clinical Pharmacist 02/27/2024, 3:50 PM * Telephone Encounter - Natty Ballesteros RPh - 01/28/2024 2:28 PM EDT Dupixent approved, but the medication has a high cost. Patient assistance team will be reaching outto assist with cost and I will scheduled education visit once medication is affordable. Natty Ballesteros PharmD Medication Therapy Disease Management ([facility]) Dermatology Clinical Pharmacist 01/28/2024, 2:28 PM * Telephone Encounter - Mariam Callahan OSA - 01/24/2024 12:07 PM EDT REQ AUTH * Telephone Encounter - Natty Ballesteros RPh - 01/23/2024 7:53 AM EDT [facility] Dermatology Pre-cert Request Please see Dermatology pre-cert request - route referral message with approval, denial or questionsback to "Dermatology Pharmacist Pool [[id number]]". - Home light unit was too expensive [...] cream (medium potency) - oral steroids - Zyrtec, Benadryl Natty Ballesteros RPh Medication Therapy Disease Management Dermatology Department [...] can provide him with the information. Kenzie Martinez SDONOVAN Dermatology Pre-Cert Request Medication/Disease State Information: Medication: Dupilumab (Dupixent) Initiation 300mg/2ml Pen - 600mg once then 300mg every two weeks (Day Supply: 8mL per 42 days) Diagnosis (including ICD-10): Contact dermatitis - Unspecified contact dermatitis, unspecific [id number] Site of Care: specialty medication - route to [id number]. Referral to pharmacist for: Pharmacist Co-management See [...] 10:00 AM EDT Office Visit Family Medicine [address] [place] [phone] Megan Flores MD [address] [place] [address] [place] [phone] 03/07/2024 1:30 PM EDT Nurse Only Pulmonary Medicine, [facility] [address] [place] [phone] , Nurse Pulmonary [address] [place] [address] Health Maintenance Due Date Last Done Comments Colonoscopy 02/02/2020 02/01/2017, 01/14, 08/13/2008 Depression Screening 08/25/2021 08/25/2020 COVID-19 Vaccine (3 - 2022- season) 2023 [...] filedocumented as of this encounter Care Teams Psychic Reader Relationship Specialty Start Date End Date Erlin Banks MD [address] [place] [address] [place] [phone] PCP - General 02/21/08 documented as of this encounter
--- OUTSIDE RECORDS SUMMARY | 2024-03-20 18:17 | External Medical Summary | Summary of Care ---
Author Name Unknown Organization [facility] Address [address] [facility] [place] [address] Phone [phone] Care Team Providers Care Naval [employer] Helicopter Name Role Phone Erlin Banks MD Primary Care Provider [phone] Reason for Visit * Reason Onset Date Comments Precert In Process 01/22/2024 Althea KEE Encounter Details Date Type Department Care Team (Late st Contact Info) Description 01/22/2024 Telephone Dermatology [address] [place] [phone] Kenzie Martinez PA-C [address] [place] [address] [place] [phone] Precert In Process (Althea KEE) Allergies Active Allergy Reactions Criticality Noted Date Comments Amoxicillin-Pot Clavulanate 09/21/20 22 vomiting Cefdinir Diarrhea 11/11/2018 Other Allergy (See Comments) Rash 07/24/2023 2+ Bacitracin - patch testing 07/24/23 documented as of this encounter (statuses as of 01/24/2024) Medications Medication Sig Dispensed Refills Start Date [...] persistent asthma without complication 0.63 mg NEBULIZER [id number] 08/21/2018 Acti ve Albuterol Sulfate (Proventil) (2.5 MG/3ML) 0.083% inhalation solution 2.5 mgIndications:Severe persistent asthma with acute exacerbation 2.5 mg NEBULIZER Q4H PRN 11/17/2021 Active Benralizumab (Fasenra) prefilled syringe 30 mgIndications:Severe persistent asthma without complication 30 mg SC [id number] 04/23/2023 03/23/2024 Acti ve documented as of this encounter (statuses as of 01/24/2024) Active Problems Problem Noted Date Diagnosed Date [...] as of this encounter (statuses as of 01/24/2024) Resolved Problems Problem Noted Date Diagnosed Date [...] as of this encounter (statuses as of 01/24/2024) Immunizations Name Administration Dates Next Due COVID-19 mRNA, LNP-s, No Pre serve, 2-Dose Series ([employer]) 02/01/2021,01/06/2021 Pneumococcal Conjugate Vacc, 13 Valent (Prevnar) [...] encounter Miscellaneous Notes * Telephone Encounter - Mariam Callahan OSA - 01/24/2024 12:07 PM EDT REQ AUTH * Telephone Encounter - Natty Ballesteros RPh - 01/23/2024 7:53 AM EDT [facility] Dermatology Pre-cert Request Please see Dermatology pre-cert request - route referral message with approval, denial or questionsback to "Dermatology Pharmacist Pool [[id number]]". - Home light unit was too expensive [...] cream (medium potency) - oral steroids - ZyrtecLoly RPh Medication Therapy Disease Management Dermatology Department [...] Contact dermatitis - Unspecified contact dermatitis, unspecific [id number] Site of Care: specialty medication - route to [id number]. Referral to pharmacist for: Pharmacist Co-management See [...] 10:00 AM EDT Office Visit Family Medicine [address] [place] [phone] Megan Flores MD [address] [place] [address] [place] [phone] 03/07/2024 1:30 PM EDT Nurse Only Pulmonary Medicine, [facility] [address] [facility] [place] [address] Gw, Nurse Pulmonary [address] [facility] [place] [address] Health Maintenance Due Date Last Done Comments COLONOSCOPY-EVERY 3 YRS AGES 18-100 02/02/2020 02/01/2017, 02/01/2017, 11/23/2011 (Refused), Additional history exists Depression Screening 08/25/2021 08/25/2020 COVID-19 Vaccine ( - 2022- season) 2023 02/01/2021, 01/06/2021 Influenza [...] filedocumented as of this encounter Care Teams [employer]cre[employer] T[employer] Helicopter Relationship Specialty Start Date End Date Erlin Banks MD [address] [place] [address] [place] [phone] PCP - General 02/21/08 documented as of this encounter
--- OUTSIDE RECORDS SUMMARY | 2024-03-20 18:17 | External Medical Summary | Summary of Care ---
Author Name Unknown Organization [facility] Address [address] [facility] [place] [address] Phone [phone] Care Team Providers Care Litharge Mill Operator Name Role Phone Erlin Banks MD Primary Care Provider [phone] Reason for Visit * Reason Comments eRx-Medication Refill Encounter Details Date Type Department Care Team (Late st Contact Info) Description 03/04/2024 Refill Family Medicine [address] [place] [phone] Erlin Banks MD [address] [place] [address] [place] [phone] Urinary frequency Allergies Active Allergy Reactions Criticality [...] persistent asthma without complication 0.63 mg NEBULIZER [id number] 08/21/2018 Acti ve Albuterol Sulfate (Proventil) (2.5 MG/3ML) 0.083% inhalation solution 2.5 mgIndications:Severe persistent asthma with acute exacerbation 2.5 mg NEBULIZER Q4H PRN 11/17/2021 Active Benralizumab (Fasenra) prefilled syringe 30 mgIndications:Severe persistent asthma without complication 30 mg SC [id number] 04/23/2023 03/23/2024 Acti ve documented as of [...] mRNA, LNP-s, No Pre serve, 2-Dose Series ([employer]) 02/01/2021,01/06/2021 Pneumococcal Conjugate Vacc, 13 Valent (Prevnar) [...] encounter Miscellaneous Notes * Telephone Encounter - Rosa Walsh RPh - 03/05/2024 2:20 PM EDT Postponed to 03/06/24 as pt has appt with new PCP on 03/06/24 @10am documented in this encounter Plan of Treatment Upcoming Encounters Date Type Department Care Team (Late st Contact Info) Description 03/07/2024 1:00 PM EDT Nurse Only Pulmonary Medicine, [facility] [address] [place] [phone] Gw, Nurse Pulmonary [address] [place] [address] Health Maintenance Due Date Last Done Comments Colonoscopy 02/02/2020 02/01/2017, 01/14, 08/13/2008 COVID-19 Vaccine (3 - 2022- season) 2023 02/01/2021, 01/06/2021 Influenza Vaccine (FLU shot) (Season Ended) 2024 08/31/2022, 08/06/2020, 09/10/2019, Additional history exists Depression Screening 03/06/2025 03/06/2024, 08/25/20 DTaP,Tdap,and Td Vaccines (3 - Td or [...] frequency documented in this encounter Care Teams Litharge Mill Operator Relationship Specialty Start Date End Date Erlin Banks MD [address] [place] [address] [place] [phone] PCP - General 02/21/08 documented as of this encounter
--- OUTSIDE RECORDS SUMMARY | 2024-03-20 18:17 | External Medical Summary | Summary of Care ---
Author Name Unknown Organization [facility] Address [address] [facility] [address] Phone [phone] Care Team Providers Care Hardware Technician Name Role Phone Erlin Banks MD Primary Care Provider [phone] Reason for Visit * Reason Comments Re-Check Encounter Details Date Type Department Care Team (Late st Contact Info) Description 03/06/2024 10:00 AM EDT Office Visit Family Medicine [address] [place] [address] Megan Flores MD [address] [place] [address] [place] [phone] Severe persistent asthma without complication*; BPH without obstruction/lower urinary tract symptoms; Dyslipidemia, goal LDL below 100; Sensorineural hearing loss of both ears; Bilateral impacted cerumen Allergies Active Allergy Reactions Criticality Noted Date Comments Amoxicillin-Pot Clavulanate 09/21/20 22 vomiting Cefdinir Diarrhea 11/11/2018 Other Allergy (See Comments) Rash 07/24/2023 2+ Bacitracin - patch testing 07/24/23 documented as of this encounter (statuses as of 03/06/2024) Medications Medication Sig Dispensed Refills Start Date End Date Status Fluticasone Furoate-Vilantero l 200-25 MCG/ACT Inhalation Aerosol Powder Breath Activated (BREO ellipta)Indicatio ns:Severe persistent asthma without complication INHALE ONE PUFF BY MOUTH EVERY DAY 60 Blister Dosing Unit 11 3 Active Simvastatin 20 MG Oral Tablet (Zocor)Indication s:Mixed dyslipidemia,Hype rlipidemia with target LDL less than 100 TAKE ONE TABLET BY MOUTH AT BEDTIME 90 Tablet 3 3 Active Clobetasol Propionate 0.05 % External Ointment (Temovate)Indicat ions: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 agents Apply 2x daily (or more if itchy instead of scratching) to rash on trunk/arms/leg s until resolved, then when flaring 60 g 3 Active Airsupra 90-80 MCG/ACT Inhalation Aerosol (Albuterol-Budeso nide) Take 2 doses by mouth up to 6 times a day as needed for shortness of breath, wheezing or cough 10.7 g 2 4 Active Ipratropium-Albut sherman 0.5-2.5 (3) MG/3ML Inhalation Solution (Duoneb)Indicatio ns:Moderate persistent asthma with exacerbation INHALE ONE VIAL VIA NEBULIZER FOUR TIMES DAILY 360 mL 5 4 Active Fasenra 30 MG/ML Subcutaneous Solution Prefilled Syringe (Benralizumab)Ind ications:Severe persistent asthma without complication,Екатерина re persistent asthma with acute exacerbation Inject 1 mL under the skin every 8 weeks. 1 mL 5 4 Active Triamcinolone Acetonide 0.1 % External Cream (Aristocort)Indic ations:Dermatitis Apply topically to affected area 2 times a day. Apply 2x daily to itchy/rashy areas until resolved, then when flaring (use more often then clobetasol) 454 g 4 Active Tamsulosin HCl 0.4 MG Oral Capsule (Flomax)Indicatio ns:BPH without obstruction/lower urinary tract symptoms Take 1 Capsule by mouth in the morning. Every morning.. 90 Capsule 1 4 Active Cetirizine HCl 10 MG Oral Tablet (ZyrTEC Allergy)Indicatio ns:Itching Take 1 Tablet by mouth in the morning. 30 Tablet 5 3 03/06/20 24 Discontinued Tamsulosin HCl 0.4 MG Oral Capsule (Flomax)Indicatio ns:Urinary frequency Take 1 Capsule by mouth in the morning. Every morning.. 90 Capsule 1 3 03/06/20 24 Discontinued(Ref ill) Benzonatate 100 MG Oral CapsuleIndication s:Viral URI with cough Take one capsule three times a day as needed for cough 30 Capsule 1 3 03/06/20 24 Discontinued Promethazine-DM 6.25-15 MG/5ML Oral SyrupIndications: Viral URI with cough Take 5 mL by mouth 4 times a day as needed for Cough. 120 mL 1 3 03/06/20 24 Discontinued Hospital, Clinic, or Other Facility Administered Medication Ordered Dose Route Frequency Start Date End Date Status Albuterol Sulfate (ACCUNEB) nebulizer solution 0.63 mgIndications:Moderate persistent asthma without complication 0.63 mg NEBULIZER [id number] 08/21/2018 Acti ve Albuterol Sulfate (Proventil) (2.5 MG/3ML) 0.083% inhalation solution 2.5 mgIndications:Severe persistent asthma with acute exacerbation 2.5 mg NEBULIZER Q4H PRN 11/17/2021 Active Benralizumab (Fasenra) prefilled syringe 30 mgIndications:Severe persistent asthma without complication 30 mg SC [id number] 04/23/2023 03/23/2024 Acti ve documented as of [...] Sign Reading Time Taken Comments Blood Pressure 118/60 03/06/2024 9:59 AM EDT Pulse 61 03/06/2024 9:59 AM EDT Temperature 36.4 C (97.5 F) 03/06/2024 9:59 AM ED T Respiratory Rate - - Oxygen Saturation 95% 03/06/2024 9:59 AM EDT Inhaled Oxygen Concentration - - Weight 70.3 kg (155 lb) 03/06/2024 9:59 AM EDT Height - - Body Mass Index 25.02 11/27/2023 12:40 PM EST documented in this encounter Progress Notes * Megan Flores MD - 03/06/2024 10:08 AM EDT Subjective: HPI: Kali Nunes is a 78 year old male with hx of Severe asthma/Eosinophilic asthma, HLD, BPH seen for Severe asthma: - currently on Breo and Fasenra injection (every 2 months) - doing well alexandra with Fasenra - denied any hx of smoking BPH: - on flomax HLD: - on Zocor Would like his ear looked at Patient Active Problem List Diagnosis Sensorineural hearing loss of both ears Mixed rhinitis Dyslipidemia, goal LDL below 100 Deviated nasal septum Bronchiectasis without complication (HCC) At risk for aspiration Severe persistent asthma without complication Primary osteoarthritis of both hands Arthritis of finger of left hand Carpal tunnel syndrome, bilateral Eosinophilic asthma Current Outpatient Medications Medication Sig Dispense Refill Fluticasone Furoate-Vilanterol 200-25 MCG/ACT Inhalation Aerosol Powder Breath Activated (BREO ellipta) INHALE ONE PUFF BY MOUTH EVERY DAY 60 Blister Dosing Unit 11 Simvastatin 20 MG Oral Tablet (Zocor) TAKE ONE TABLET BY MOUTH AT BEDTIME 90 Tablet 3 Clobetasol Propionate 0.05 % External Ointment (Temovate) Apply 2x daily (or more if itchy instead of scratching) to rash on trunk/arms/legs until resolved, then when flaring 60 g 0 Airsupra 90-80 MCG/ACT Inhalation Aerosol (Albuterol-Budesonide) Take 2 doses by mouth up to 6 times a day as needed for shortness of breath, wheezing or cough 10.7 g 2 Ipratropium-Albuterol 0.5-2.5 (3) MG/3ML Inhalation Solution (Duoneb) INHALE ONE VIAL VIA NEBULIZERFOUR TIMES DAILY 360 mL 5 Fasenra 30 MG/ML Subcutaneous Solution Prefilled Syringe (Benralizumab) Inject 1 mL under the skin every 8 weeks. 1 mL 5 Triamcinolone Acetonide 0.1 % External Cream (Aristocort) Apply topically to affected area 2 times a day. Apply 2x daily to itchy/rashy areas until resolved, then when flaring (use more often then clobetasol) 454 g 0 Tamsulosin HCl 0.4 MG Oral Capsule (Flomax) Take 1 Capsule by mouth in the morning. Every morning..90 Capsule 1 Current Facility-Administered Medications Medication Dose Route Frequency Provider Last Rate Last Admin Albuterol Sulfate (ACCUNEB) nebulizer solution 0.63 mg 0.63 mg Nebulizer Resp Q4H Carolina Steward CRNP Albuterol Sulfate (Proventil) (2.5 MG/3ML) 0.083% inhalation solution 2.5 mg 2.5 mg Nebulizer Q4H PRN Leonor Kitchen CRNP 2.5 mg at 10/25/23 1301 Benralizumab (Fasenra) prefilled syringe 30 mg 30 mg Subcutaneous Q8 Weeks Leonor Kitchen CRNP 30 mg at 01/03/24 1341 Past Medical History: Diagnosis Date Acute bronchitis 03/13/2016 [facility] sent home on doxy and cefdinir Arthritis of finger of left hand 07/16/2020 At risk for aspiration 12/19/2018 Atopic dermatitis Benign neoplasm of colon 08/13/2008 3 sessile polyps at hepatic flexure 5,5,7 mm Bronchiectasis without complication (HCC) Calculus of gallbladder without mention of cholecystitis or obstruction 09/09/2009 Carpal tunnel syndrome, bilateral 07/16/2020 Cholecystitis 01/07/2015 Admitted [facility] cholecystitis, GB removed Chronic bronchitis with productive mucopurulent cough (HCC) 06/21/2018 Chronic pansinusitis Cystitis 11/05/2018 >100,000 Klebsiela, resistant to Bactrim and ampicillin Deviated nasal septum 07/26/2017 Hyperlipidemia LDL goal < 100 Hypertrophy of both inferior nasal turbinates Hyposmia Influenza A 12/05/2017 nasal swab Influenza A 12/19/2018 nasal swab Internal hemorrhoids with other complication Mixed dyslipidemia 07/08/2009 CHOL 224, HDL 32, NON HDL 192, LDL 154, TRIG 189 Mixed rhinitis NUMMULAR DERMATITIS 02/2011 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 Vitamin D deficiency 07/08/2009 Vitamin D 20.1 Past Surgical History: Procedure Laterality Date ABD/PELVIS CT W/ + W/O IV AND W/PO CONTRAST 09/09/09 right inguinal hernia, possible elevated testicle onr right, , sigmoid and descending colonic diverticulosis ABDOMEN (KUB) 1 VIEW 09/09/02 [facility]-no diagnostic findings CARPAL TUNNEL SURGERY Left 12/01/2020 NEUROPLASTY MEDIAN NERVE AT CARPAL TUNNEL performed by Jamar Moreno MD at OR [facility] CHEST 1 VIEW 09/09/02 [facility] the heart size and contour are normal, the lungs are expanded and clear COLONOSCOPY W/ LESION REMOVAL, SNARE 08/13/08 repeat in 3-5 yrs COLONOSCOPY, DIAGNOSTIC (RECTUM) 02/01/2017 7 mm ascending, 6 mm hepatic flexure, 8 mm transverse, 3 mm descending tubular adenomas, repeat 3 years, performed by Jaret Trejo MD at ENDOSCOPY [facility] CT ABD/PELVIS WO IV/ORAL CONTRAST 01/07/15 chronic sigmoid and descending colon diverticulosis, Gallstones CT ABDOMEN W WO IV AND W ORAL CONTRAST 10/30/02 [facility]-essentially negative study with a note of a probalbe hiatal hernia and minimal atheromatous changes of the abdominal aorta CT ABDOMEN W WO IV AND W ORAL CONTRAST 11/20/02 [facility]- no focal abnormailty ofthe liver or spleen is identified, the kidneys enhanced symmetrically CT HEAD/BRAIN W WO CONTRAST 06/22/[address] of head CT PELVIS W CONTRAST 11/20/02 [facility]-normal CT pelvis CTA CHEST NON-CORONARY W CONTRAST 10/16/2018 poor study, no large PE noted CXR 2 VIEWS AP/PA & LATERAL 06/22/02 No active pulmonary disease,apical pleural thickening and left clavicular fx DESTRUCTION OF INTERNAL HEMORRHOIDS 1979? Dr Jarrett FLUORO CHOLANGIOGRAM ADD'L FILMS-OR 01/08/15 fullness of biliary tree, retained calculus possible LAPAROSCOPY; CHOLECYSTECTOMY 01/08/15 01/08/2015 laproscopic cholecystectomy - Dr. Derrick Newell [facility] LAPAROSCOPY; CHOLECYSTECTOMY 01/08/2015 01/08/2015 Cholecystectomy, Laproscopic MAXIL SINUS ENDOSCOPY W/TISS REMOVE Bilateral 08/15/2017 NASAL SINUS ENDOSCOPY MAXILLA ANTROSTOMY REMOVE TISSUE performed by Ignacio Hopper II, MD at OR [facility] MRI ABDOMEN WO CONTRAST 01/08/15 no retained common duct stone NASAL ENDOSCOPY,TOTAL ETHMOIDECTOMY Bilateral 08/15/2017 NASAL SINUS ENDOSCOPY WITH ETHMOIDECTOMY TOTAL performed by Ignacio Hopper II, MD at OR [facility] NM HEPATOBILIARY SYSTEM WITH PHARMACOLOGIC INTERVENTION 01/07/15 findings consistent with acute cholecystitis, distal common duct sphincter dysfunction REMOVAL OF TURBINATE BONES Bilateral 08/15/2017 SUBMUCOUS RESECTION INFERIOR TURBINATE performed by Ignacio Hopper II, MD at OR [facility] REMOVE WRIST/FOREARM LESION,FLEXORS Left 12/01/2020 RADICAL EXCISION BURSA SYNOVIA WRIST OR FOREARM performed by Jamar Moreno MD at OR [facility] REPAIR OF NASAL SEPTUM 08/15/2017 SEPTOPLASTY performed by Ignacio Hopper II, MD at OR [facility] SPIROMETRY B/A BRONCHODILATOR 01/26/12 normal spirometry, no response with bronchodilator SPIROMETRY B/A BRONCHODILATOR 04/04/13 baseline normal, with improvement with bronchodilator, suggesting an element of asthma STEREOTACTIC CRANIAL EXTRADURAL NAVIGATION 08/15/2017 STEREOTACTIC CRANIAL EXTRADURAL NAVIGATION performed by Ignacio Hopper II, MD at OR [facility] US ABDOMEN LIMITED 09/09/09 several gallstones, normal bile ducts. 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 XR C SPINE 4-5 VIEWS 06/22/02 reduction of normal lordosis,moderate ddd of c6-c7,left maxiallry sinusitis XR T SPINE MINIMUM 4 VIEWS 06/22/02 Mild to moderate ddd affecting all disc spaces Review of patient's allergies indicates: Allergen Reactions Augmentin [Amoxicillin-Pot Clavulanate] vomiting Cefdinir Diarrhea Other Allergy (See Comments) Rash 2+ Bacitracin - patch testing 07/24/23 Family History Problem Relation Name Age of Onset Asthma Mother Heart Disorder Mother Heart Disorder Father Heart Disorder Sister Heart Disorder Brother Asthma Sister Asthma Sister Asthma Brother Social History Tobacco Use Smoking status: Never Smokeless tobacco: Never Tobacco comments: no passive smoke Substance Use Topics Alcohol use: No Vaping/E-Cigarette Use Vaping/E-Cigarette Use Never User Vaping/E-Cigarette Substances Vaping/E-Cigarette Devices ROS: -Per HPI OBJECTIVE: BP 118/60 | Pulse 61 | Temp 36.4 C (97.5 F) (Tympanic) | Wt 70.3 kg (155 lb) | SpO2 95% | BMI 25.02 kg/m | BSA 1.81 m PHYSICAL EXAM: Vitals are reviewed General:. NAD, well developed HEENT:.b/l ear wax, Normal Conjunctiva, EOMI Cardiac:. Normal S1, S2, no murmur Lungs:. CTA, no wheezing or crackles Psych:. AAOx3, normal affect ASSESSMENT/PLAN: Severe persistent asthma without complication (Primary) - doing well on current meds BPH without obstruction/lower urinary tract symptoms - Tamsulosin HCl 0.4 MG Oral Capsule (Flomax); Take 1 Capsule by mouth in the morning. Every morning.. Dyslipidemia, goal LDL below 100 - continue statin - did not want labs done today Sensorineural hearing loss of both ears - stable Bilateral impacted cerumen - removed Follow Up: Return in about 6 months (around 09/06/2024). Megan Flores MD Family medicine, [place] [phone] documented in this encounter Nursing Notes * Zari Reed LPN - 03/06/2024 9:59 AM EDT 6 month recheck Check ears Refill Flomax. documented in this encounter Plan of Treatment Upcoming Encounters Date Type Department Care Team (Late st Contact Info) Description 03/07/2024 1:00 PM EDT Nurse Only Pulmonary Medicine, [facility] [address] [phone] Gw, Nurse Pulmonary [address] [address] Health Maintenance Due Date Last Done Comments [...] Visit Diagnoses Diagnosis Severe persistent asthma without complication- Primary BPH without obstruction/lower urinary tract symptoms Hypertrophy of prostate without urinary obstruction and other lower urinary tract symptoms (LUTS) Dyslipidemia, goal LDL below 100 Other and unspecified hyperlipidemia Sensorineural hearing loss of both ears Sensorineural hearing loss, bilateral Bilateral impacted cerumen Impacted cerumen documented in this encounter Care Teams Hardware Technician Relationship Specialty Start Date End Date Erlin Banks MD [address] [place] [address] [place] [phone] PCP - General 02/21/08 documented as of this encounter"
--- OUTSIDE RECORDS SUMMARY | 2024-03-20 18:17 | External Medical Summary | Summary of Care ---
Author Name Unknown Organization [facility] Address [address] [facility] [place] [address] Phone [phone] Care Team Providers Care Bullet Maker Name Role Phone Erlin Banks MD Primary Care Provider [phone] Reason for Visit * Reason Onset Date Comments Precert Approved 01/22/2024 Dupixent Encounter Details Date Type Department Care Team (Late st Contact Info) Description 01/22/2024 [address]erm[address] [place] [phone] Kenzie Martinez PA-C [address] [place] [address] [place] [phone] Precert Approved (Dupixent ) Allergies Active Allergy [...] persistent asthma without complication 0.63 mg NEBULIZER [id number] 08/21/2018 Acti ve Albuterol Sulfate (Proventil) (2.5 MG/3ML) 0.083% inhalation solution 2.5 mgIndications:Severe persistent asthma with acute exacerbation 2.5 mg NEBULIZER Q4H PRN 11/17/2021 Active Benralizumab (Fasenra) prefilled syringe 30 mgIndications:Severe persistent asthma without complication 30 mg SC [id number] 04/23/2023 03/23/2024 Acti ve documented as of [...] RPh - 01/23/2024 7:53 AM EDT [facility] Dermatology Pre-cert Request Please see Dermatology pre-cert request - route referral message with approval, denial or questionsback to "Dermatology Pharmacist Pool [[id number]]". - Home light unit was too expensive [...] Contact dermatitis - Unspecified contact dermatitis, unspecific [id number] Site of Care: specialty medication - route to [id number]. Referral to pharmacist for: Pharmacist Co-management See [...] 10:00 AM EDT Office Visit Family Medicine [address] [place] [phone] Megan Flores MD [address] [place] [address] [place] [phone] 03/07/2024 1:30 PM EDT Nurse Only Pulmonary Medicine, [facility] [address] [place] [address] Gw, Nurse Pulmonary [address] [facility] [place] [address] Health Maintenance Due Date Last Done Comments COLONOSCOPY-EVERY 3 YRS AGES 18-100 02/02/2020 02/01/2017, 02/01/2017, 11/23/2011 (Refused), Additional history exists Depression Screening 08/25/2021 08/25/2020 COVID-19 Vaccine (3 [...] filedocumented as of this encounter Care Teams Bullet Maker Relationship Specialty Start Date End Date Erlin Banks MD [address] [place] [address] [place] [phone] PCP - General 02/21/08 documented as of this encounter
--- OUTSIDE RECORDS SUMMARY | 2024-03-20 18:18 | External Medical Summary | Summary of Care ---
Author Name Unknown Organization [facility] Address [address] [place] [address] Phone [phone] Care Team Providers Care Mortgage Coordinator Name Role Phone Erlin Banks MD Primary Care Provider Encounter Details Date Type Department Care Team (Latest Contact Info) Description 01/21/2024 3:13 PM EDT - 01/21/2024 11:59 PM EDT Hospital Encounter Radiology Film File [address] [place] [address] Arrived Discharge Disposition: Home - Self Care Allergies Active Allergy Reactions Criticality Noted Date Comments Amoxicillin-Pot Clavulanate 09/21/20 22 vomiting Cefdinir Diarrhea 11/11/2018 Other Allergy (See Comments) Rash 07/24/2023 2+ Bacitracin - patch testing 07/24/23 documented as of this encounter (statuses as of 01/22/2024) Medications Medication Sig Dispensed Refills Start Date [...] persistent asthma without complication 0.63 mg NEBULIZER [id number] 08/21/2018 Acti ve Albuterol Sulfate (Proventil) (2.5 MG/3ML) 0.083% inhalation solution 2.5 mgIndications:Severe persistent asthma with acute exacerbation 2.5 mg NEBULIZER Q4H PRN 11/17/2021 Active Benralizumab (Fasenra) prefilled syringe 30 mgIndications:Severe persistent asthma without complication 30 mg SC [id number] 04/23/2023 03/23/2024 Acti ve documented as of this encounter (statuses as of 01/22/2024) Active Problems Problem Noted Date Diagnosed Date [...] as of this encounter (statuses as of 01/22/2024) Resolved Problems Problem Noted Date Diagnosed Date [...] as of this encounter (statuses as of 01/22/2024) Immunizations Name Administration Dates Next Due COVID-19 mRNA, LNP-s, No Pre serve, 2-Dose Series ([employer]) 02/01/2021,01/06/2021 Pneumococcal Conjugate Vacc, 13 Valent (Prevnar) [...] on file documented as of this encounter Plan of Treatment Upcoming Encounters Date Type Department Care Team (Late st Contact Info) Description 03/06/2024 10:00 AM EDT Office Visit Family Medicine [address] [place] [phone] Megan Flores MD [address] [place] [address] [place] [phone] 03/07/2024 1:30 PM EDT Nurse Only Pulmonary Medicine, [facility] [address] [place] [address] Gw, Nurse Pulmonary [address] [place] [address] Health Maintenance Due Date Last Done Comments [...] Not on filedocumented as of this encounter Procedures Procedure Name Priority Date/Time Associated Diagnosis Comments DERM EXAM - DERM (IMAGES ONLY, NO REPORT) Routine 01/21/2024 3:13 PM EDT Dermatitis documented in this encounter Results * DERM EXAM - DERM (IMAGES ONLY, NO REPORT) (01/21/2024 3:13 PM EDT) Narrative Scheduling, Silent - 01/21/2024 3:13 PM EDT This is an imaging study not interpreted or resulted by a [facility] or [facility] contracted radiologist. Kenzie Martinez PA-C RADIOLOGY (RAD GENERAL) documented in this encounter Care Teams Mortgage Coordinator Relationship Specialty Start Date End Date Erlin Banks MD [address] [place] [address] [place] [phone] PCP - General 02/21/08 documented as of this encounter
--- OUTSIDE RECORDS SUMMARY | 2024-03-20 18:18 | External Medical Summary | Summary of Care ---
Author Name Unknown Organization [facility] Address [address] [facility] [place] [address] Phone [phone] Care Team Providers Care Health Information Technologist Name Role Phone Erlin Banks MD Primary Care Provider Reason for Visit * Reason Onset Date Comments Pre Cert/Prior Auth 01/22/2024 Dupixent Encounter Details Date Type Department Care Team (Late st Contact Info) Description 01/22/2024 [address]erm[address] [place] [phone] Kenzie Martinez PA-C [address] [place] [address] [place] [phone] Pre Cert/Prior Auth (Dupixent) Allergies Active Allergy Reactions Criticality Noted Date [...] VIA NEBULIZER FOUR TIMES DAILY 360 mL 12/11/2023 Active Fasenra 30 MG/ML Subcutaneous Solution [...] persistent asthma without complication 0.63 mg NEBULIZER [id number] 08/21/2018 Acti ve Albuterol Sulfate (Proventil) (2.5 MG/3ML) 0.083% inhalation solution 2.5 mgIndications:Severe persistent asthma with acute exacerbation 2.5 mg NEBULIZER Q4H PRN 11/17/2021 Active Benralizumab (Fasenra) prefilled syringe 30 mgIndications:Severe persistent asthma without complication 30 mg SC [id number] 04/23/2023 03/23/2024 Acti ve documented as of [...] Ballesteros RPh - 01/23/2024 7:53 AM EDT [facility] Dermatology Pre-cert Request Please see Dermatology pre-cert request - route referral message with approval, denial or questionsback to "Dermatology Pharmacist Pool [[id number]]". - Home light unit was too expensive [...] cream (medium potency) - oral steroids - MireyayrtecLoly RPh Medication Therapy Disease Management Dermatology Department [...] Contact dermatitis - Unspecified contact dermatitis, unspecific [id number] Site of Care: specialty medication - route to [id number]. Referral to pharmacist for: Pharmacist Co-management See [...] Thank you * Telephone Encounter - Kenzie Martniez PA-C - 01/22/2024 11:56 AM EDT Left non specific message for pt to call back to discuss lab results. CBC and TSH look good, no further lab work needed at this time. Pt to decide if he would like to switch from Fasenra to Dupixent to see if rash can be further improved. Kenzie R. Juan MHS, PA-C documented in this encounter Plan of Treatment Upcoming Encounters Date Type Department Care Team (Late st Contact Info) Description 03/06/2024 10:00 AM EDT Office Visit Family Medicine [address] [place] [phone] Megan Flores MD [address] [place] [address] [place] [phone] 03/07/2024 1:30 PM EDT Nurse Only Pulmonary Medicine, [facility] [address] [address] Gw, Nurse Pulmonary [address] [address] Health Maintenance Due Date Last Done Comments [...] filedocumented as of this encounter Care Teams Health Information Technologist Relationship Specialty Start Date End Date Erlin Banks MD [address] [place] [address] [place] [phone] PCP - General 02/21/08 documented as of this encounter
--- OUTSIDE RECORDS SUMMARY | 2024-03-20 18:18 | External Medical Summary | Summary of Care ---
Author Name Unknown Organization [facility] Address [address] [facility] [place] [address] Phone [phone] Care Team Providers Care Entrepreneurial Finance Professor Name Role Phone Erlin Banks MD Primary Care Provider Reason for Visit * Reason Onset Date Comments Pre Cert/Prior Auth 01/22/2024 Dupixent Encounter Details Date Type Department Care Team (Late st Contact Info) Description 01/22/2024 Telephone Derm[address] [place] [address] Kenzie Martinez PA-C [address] [place] [address] [place] [phone] Pre Cert/Prior Auth (Dupixent) Allergies Active Allergy [...] persistent asthma without complication 0.63 mg NEBULIZER [id number] 08/21/2018 Acti ve Albuterol Sulfate (Proventil) (2.5 MG/3ML) 0.083% inhalation solution 2.5 mgIndications:Severe persistent asthma with acute exacerbation 2.5 mg NEBULIZER Q4H PRN 11/17/2021 Active Benralizumab (Fasenra) prefilled syringe 30 mgIndications:Severe persistent asthma without complication 30 mg SC [id number] 04/23/2023 03/23/2024 Acti ve documented as of [...] Ballesteros RPh - 01/23/2024 7:53 AM EDT [facility] Dermatology Pre-cert Request Please see Dermatology pre-cert request - route referral message with approval, denial or questionsback to "Dermatology Pharmacist Pool [[id number]]". - Home light unit was too expensive [...] Contact dermatitis - Unspecified contact dermatitis, unspecific [id number] Site of Care: specialty medication - route to [id number]. Referral to pharmacist for: Pharmacist Co-management See [...] AM EDT Office Visit Family Medicine [address] [place] [phone] Megan Flores MD [address] [place] [address] [place] [phone] 03/07/2024 1:30 PM EDT Nurse Only Pulmonary Medicine, [facility] [address] [place] [address] Gw, Nurse Pulmonary [address] [address] Health Maintenance Due Date Last Done Comments [...] filedocumented as of this encounter Care Teams Entrepreneurial Finance Professor Relationship Specialty Start Date End Date Erlin Banks MD [address] [place] [address] [place] [phone] PCP - General 02/21/08 documented as of this encounter
--- OUTSIDE RECORDS SUMMARY | 2024-03-20 18:18 | External Medical Summary | Summary of Care ---
Author Name Unknown Organization [facility] Address [address] [facility] [place] [address] Phone [phone] Care Team Providers Care Dermatology Physician Name Role Phone Erlin Banks MD Primary Care Provider [phone] Reason for Visit * Reason Onset Date Comments Test Results 01/22/2024 Pre Authorization Request 01/22/2024 Encounter Details Date Type Department Care Team (Late st Contact Info) Description 01/22/2024 [address]phone [address] [place] [phone] Kenzie Martinez PA-C [address] [place] [address] [place] [phone] Test Results; Pre Authorization Request Allergies Active Allergy Reactions Criticality Noted Date [...] persistent asthma without complication 0.63 mg NEBULIZER [id number] 08/21/2018 Acti ve Albuterol Sulfate (Proventil) (2.5 MG/3ML) 0.083% inhalation solution 2.5 mgIndications:Severe persistent asthma with acute exacerbation 2.5 mg NEBULIZER Q4H PRN 11/17/2021 Active Benralizumab (Fasenra) prefilled syringe 30 mgIndications:Severe persistent asthma without complication 30 mg SC [id number] 04/23/2023 03/23/2024 Acti ve documented as of [...] encounter Miscellaneous Notes * Telephone Encounter - Kenzie Martinez PA-C [...] Contact dermatitis - Unspecified contact dermatitis, unspecific [id number] Site of Care: specialty medication - route to [id number]. Referral to pharmacist for: Pharmacist Co-management See [...] 10:00 AM EDT Office Visit Family Medicine [address] [phone] Megan Flores MD [address] [place] [address] [place] [phone] 03/07/2024 1:30 PM EDT Nurse Only Pulmonary Medicine, [facility] [address] [address] Gw, Nurse Pulmonary [address] [address] Health Maintenance Due Date Last Done Comments [...] filedocumented as of this encounter Care Teams Dermatology Physician Relationship Specialty Start Date End Date Erlin Banks MD [address] [place] [address] [place] [phone] PCP - General 02/21/08 documented as of this encounter
--- OUTSIDE RECORDS SUMMARY | 2024-03-20 18:18 | External Medical Summary | Summary of Care ---
Author Name Unknown Organization [facility] Address [address] [facility] [place] [address] Phone [phone] Care Team Providers Care Alfalfa Dehydrator Operator Name Role Phone Erlin Banks MD Primary Care Provider [phone] Reason for Visit * Reason Comments Follow Up Pt here for 3 month f/u for dermatitis. Pt states things are mostly the same, maybe a little improvement. Encounter Details Date Type Department Care Team (Late st Contact Info) Description 01/21/2024 3:00 PM EDT Office Visit Dermatology [address] [place] [address] Kenzie Martinez PA-C [address] [place] [address] [place] [phone] Dermatitis* Allergies Active Allergy Reactions Criticality Noted Date Comments Amoxicillin-Pot Clavulanate 09/21/20 22 vomiting Cefdinir Diarrhea 11/11/2018 Other Allergy (See Comments) Rash 07/24/2023 2+ Bacitracin - patch testing 07/24/23 documented as of this encounter (statuses as of 01/21/2024) Medications Medication Sig Dispensed Refills Start Date [...] on 11/27/2023 Simvastatin 20 MG Oral Tablet (Zocor)Indication s:Mixed [...] 1 08/30/2023 Active Benzonatate 100 MG Oral CapsuleIndication s:Viral URI with cough Take one capsule three times a day as needed for cough 30 Capsule 1 08/30/2023 Active Additional Information Patient not taking.Reported on 11/27/2023 Promethazine-DM 6.25-15 MG/5ML Oral SyrupIndications: Viral URI with cough Take 5 mL by mouth 4 times a day as needed for Cough. 120 mL 1 08/30/2023 Active Additional Information Patient not taking.Reported on 11/27/2023 Airsupra 90-80 MCG/ACT Inhalation Aerosol (Albuterol-Budeso nide) Take 2 doses by mouth up to 6 times a day as needed for shortness of breath, wheezing or cough 10.7 g 2 11/27/2023 Active Ipratropium-Albut sherman 0.5-2.5 (3) MG/3ML Inhalation [...] then clobetasol) 454 g 0 01/21/2024 Active Triamcinolone Acetonide 0.1 % External Cream (Aristocort)Indic ations:Dermatitis Apply topically to affected area 2 times a day. To affected area. 60 g 5 04/26/2023 4 Discontinue d(Refill) Hospital, Clinic, or Other Facility Administered Medication Ordered Dose Route Frequency Start Date End Date Status Albuterol Sulfate (ACCUNEB) nebulizer solution 0.63 mgIndications:Moderate persistent asthma without complication 0.63 mg NEBULIZER [id number] 08/21/2018 Acti ve Albuterol Sulfate (Proventil) (2.5 MG/3ML) 0.083% inhalation solution 2.5 mgIndications:Severe persistent asthma with acute exacerbation 2.5 mg NEBULIZER Q4H PRN 11/17/2021 Active Benralizumab (Fasenra) prefilled syringe 30 mgIndications:Severe persistent asthma without complication 30 mg SC [id number] 04/23/2023 03/23/2024 Acti ve documented as of this encounter (statuses as of 01/21/2024) Active Problems Problem Noted Date Diagnosed Date [...] as of this encounter (statuses as of 01/21/2024) Resolved Problems Problem Noted Date Diagnosed Date [...] as of this encounter (statuses as of 01/21/2024) Immunizations Name Administration Dates Next Due COVID-19 [...] on file documented as of this encounter Patient Instructions * Patient Instructions* Kenzie Martinez PA-C - 01/21/2024 3:42 PM EDT The side effects of chronic topical steroid use were discussed with patient and include but are notlimited to telangiectasia (broken blood vessels), striae (stretch dela cruz), atrophy (thin skin), purpura (bruising), allergic contact dermatitis, acneiform eruptions and medicine addiction (rebound rash after cessation), cataracts, suppression of the bodys ability to create its own cortisol, weight gain, poor height growth, and high blood sugar. Advocated avoidance of use nears eyes (glaucoma and cataracts) and skin folds (enhanced effect = atrophy) unless otherwise directed. Advised to use the medication only as needed. Our plan will alwaysbe to use the lowest potency possible and to use a regimen that employs intermittent rather than constant use of topical steroids. If the rash clears then stop and transition to CERAVE CREAM for maintenance. documented in this encounter Progress Notes * Kenzie Martinez PA-C - 01/21/2024 3:00 PM EDT SUBJECTIVE: History of Present Illness: Kali Nunes is a 78 year old male seen today for follow up of chronic dermatitis. 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 Pt feels that dermatitis is very slightly better than last office visit, does not get as itchy, perpt. Has been mostly sticking to products on the [facility] list, the best he can. Using triamcinolone 0.1% cream (not using) and clobetasol 0.05% ointment (currently about QOD when itchy) to flared areas.Home light therapy is too expensive for patient to purchase. REVIEW OF SYSTEMS: SKIN: No other new or changing moles. HEME/LYMPH: No new or enlarging lumps or bumps. CONSTITUTIONAL: No nausea, vomiting, fevers, chills, diarrhea. No recent unintended weight loss, night sweats, appetite or malaise. RESP: negative MSK/EXT: Negative or as per HPI GI: negative CV: Negative or as per HPI Rest of systems are negative or as per HPI SKIN CANCER HX: NONE Reviewed, same day as visit, 0 [facility] Dermatology lab work(s)/pathology report(s) as well as those sent by referring provider prior to seeing pt. MEDICA TIONS: Current Outpatient Medications Medication Sig Dispense Refill Fluticasone Furoate-Vilanterol 200-25 MCG/ACT Inhalation Aerosol Powder Breath Activated (BREO ellipta) INHALE ONE PUFF BY MOUTH EVERY DAY 60 Blister Dosing Unit 11 Triamcinolone Acetonide 0.1 % External Cream (Aristocort) Apply topically to affected area 2 times a day. To affected area. 60 g 5 Cetirizine HCl 10 MG Oral Tablet (ZyrTEC Allergy) Take 1 Tablet by mouth in the morning. (Patient not taking: Reported on 11/27/2023) 30 Tablet 5 Simvastatin 20 MG Oral Tablet (Zocor) TAKE ONE TABLET BY MOUTH AT BEDTIME 90 Tablet 3 Clobetasol Propionate 0.05 % External Ointment (Temovate) Apply 2x daily (or more if itchy instead of scratching) to rash on trunk/arms/legs until resolved, then when flaring 60 g 0 Tamsulosin HCl 0.4 MG Oral Capsule (Flomax) Take 1 Capsule by mouth in the morning. Every morning..90 Capsule 1 Benzonatate 100 MG Oral Capsule Take one capsule three times a day as needed for cough (Patient nottaking: Reported on 11/27/2023) 30 Capsule 1 Promethazine-DM 6.25-15 MG/5ML Oral Syrup Take 5 mL by mouth 4 times a day as needed for Cough. (Patient not taking: Reported on 11/27/2023) 120 mL 1 Airsupra 90-80 MCG/ACT Inhalation Aerosol (Albuterol-Budesonide) Take [...] skin every 8 weeks. 1 mL 5 Current Facility-Administered Medications Medication Dose Route Frequency [...] Kitchen CRNP 30 mg at 01/03/24 1341 ALLERG IES: Augmentin [amoxicillin-pot clavulanate], Cefdinir, and Other allergy (see comments) OBJECT GEORGINA: GEN: alert, no distress, appears oriented, pleasant, and cooperative. SKIN: Detailed exam of face including lids and lips, neck, chest, abdomen, back, and bilateral upper ext. (arm, hand, fingers) completed: 1A-B. Back/R posterior upper arm-Minimal erythematous xerotic areas, mostly some residual excoriated scaly and lichenified nodules on upper back and R posterior upper arm. ASSESS MENT/PLAN: A. 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 There is no subepidermal separation to suggest bullous pemphigoid; however, if this is a clinical consideration a separate specimen should be submitted fresh (unfixed) for direct immunofluorescence. B. Skin, L lateral abdomen, punch: Acute spongiotic dermatitis (see comment) Comment: The histologic findings are most suggestive of an allergic contact dermatitis. There is noevidence of a folliculitis or Chili disease after extensive sectioning of the submitted specimen. Allergic contact dermatitis (2+ Bacitracin) and chronic dermatitis on back/R posterior upper arm, much improved since last office visit-Pt to use more triamcinolone 0.1% cream and less with clobetasol 0.05% ointment BID to rash flaring (only using when itchy, about QOD). -Side effects of each medication discussed and treatment regimen written and printed on checkout sheet. 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 Photo(s) of #1- taken, pt verbally consented to having photo(s) taken. Follow-up: TBD pending labs and if he would like to switch to Dupixent. Applicable photos (if any) and chart reviewed by Dr. Jarrell Dela Cruz. Presumed diagnoses, expected natural histories, and management options discussed with the patient at length. Questions were addressed and anticipatory guidance provided. They were instructed to contact me if additional questions, concerns, or problems develop in the interim. -There were no barriers to learning and no other pain was related to today's visit. The patient and/or person accompanying patient demonstrates understanding of the visit and treatment. Kenzie Martinez PA-C 01/21/2024 3:41 PM Dermatology [address] [place] [address] documented in this encounter Nursing Notes * Nenita Marie LPN - 01/21/2024 2:45 PM EDT Patient identified by full name and date of Chief Complaint Patient presents with Follow Up Pt here for 3 month f/u for dermatitis. Pt states things are mostly the same, maybe a little improvement. documented in this encounter Plan of Treatment Upcoming Encounters Date Type Department Care Team (Late st Contact Info) Description 03/06/2024 10:00 AM EDT Office Visit Family Medicine [address] [place] [phone] Megan Flores MD [address] [place] [address] [place] [phone] 03/07/2024 1:30 PM EDT Nurse Only Pulmonary Medicine, [facility] [address] [place] [address] , Nurse Pulmonary [address] [place] [address] Health Maintenance Due Date Last Done Comments COLONOSCOPY-EVERY 3 YRS AGES 18-100 02/02/2020 02/01/2017, 02/01/2017, 11/23/2011 (Refused), Additional history exists Depression Screening 08/25/2021 08/25/2020 COVID-19 Vaccine (3 - 24 season) 2023 02/01/2021, 01/06/2021 Influenza Vaccine (FLU [...] REPORT) Routine 01/21/2024 3:13 PM EDT Dermatitis DERM IMAGE (SITE) Routine 01/21/2024 Dermatitis documented in this encounter Results * DERM EXAM - DERM (IMAGES ONLY, NO REPORT) (01/21/2024 3:13 PM EDT) Narrative Scheduling, Silent - 01/21/2024 3:13 PM EDT This is an imaging study not interpreted or resulted by a [facility] or [facility] contracted radiologist. Kenzie Martinez PA-C RADIOLOGY ([facility]) * DERM IMAGE (SITE) (01/21/2024) 01/21/2024 Kenzie Martinez PA-C DIGITAL PHOTOG RODOLFO documented in this encounter Visit Diagnoses Diagnosis Dermatitis- Primary Contact dermatitis and other eczema, due to unspecified cause documented in this encounter Care Teams Alfalfa Dehydrator Operator Relationship Specialty Start Date End Date Erlin Banks MD [address] [place] [address] [place] [phone] PCP - General 02/21/08 documented as of this encounter
--- OUTSIDE RECORDS SUMMARY | 2024-03-20 18:18 | External Medical Summary | Summary of Care ---
Author Name Unknown Organization [facility] Address [address] [facility] [place] [address] Phone [phone] Care Team Providers Care Steno Pool Supervisor Name Role Phone Erlin Banks MD Primary Care Provider [phone] Reason for Visit * Reason Onset Date Comments Pre Authorization Request 01/22/2024 Charlnee kahn Encounter Details Date Type Department Care Team (Late st Contact Info) Description 01/22/2024 Telephone Dermat[address] [place] [address] Kenzie Martinez PA-C [address] [place] [address] [place] [address] Pre Authorization Request (Althea) Allergies Active Allergy Reactions Criticality Noted Date Comments Amoxicillin-Pot Clavulanate 09/21/20 22 vomiting Cefdinir Diarrhea 11/11/2018 Other Allergy (See Comments) Rash 07/24/2023 2+ Bacitracin - patch testing 07/24/23 documented as of this encounter (statuses as of 01/23/2024) Medications Medication Sig Dispensed Refills Start Date [...] persistent asthma without complication 0.63 mg NEBULIZER [id number] 08/21/2018 Acti ve Albuterol Sulfate (Proventil) (2.5 MG/3ML) 0.083% inhalation solution 2.5 mgIndications:Severe persistent asthma with acute exacerbation 2.5 mg NEBULIZER Q4H PRN 11/17/2021 Active Benralizumab (Fasenra) prefilled syringe 30 mgIndications:Severe persistent asthma without complication 30 mg SC [id number] 04/23/2023 03/23/2024 Acti ve documented as of this encounter (statuses as of 01/23/2024) Active Problems Problem Noted Date Diagnosed Date [...] as of this encounter (statuses as of 01/23/2024) Resolved Problems Problem Noted Date Diagnosed Date [...] as of this encounter (statuses as of 01/23/2024) Immunizations Name Administration Dates Next Due COVID-19 [...] Ballesteros RPh - 01/23/2024 7:53 AM EDT [facility] Dermatology Pre-cert Request Please see Dermatology pre-cert request - route referral message with approval, denial or questionsback to "Dermatology Pharmacist Pool [[id number]]". - Home light unit was too expensive [...] cream (medium potency) - oral steroids - MireyayrteLoly barba RPh Medication Therapy Disease Management Dermatology Department [...] Contact dermatitis - Unspecified contact dermatitis, unspecific [id number] Site of Care: specialty medication - route to [id number]. Referral to pharmacist for: Pharmacist Co-management See [...] AM EDT Office Visit Family Medicine [address] [place] [phone] Megan Flores MD [address] [place] [address] [place] [phone] 03/07/2024 1:30 PM EDT Nurse Only Pulmonary Medicine, [facility] [address] [place] [address] Gw, Nurse Pulmonary [address] [place] [address] Health Maintenance Due Date Last Done Comments [...] filedocumented as of this encounter Care Teams Steno Pool Supervisor Relationship Specialty Start Date End Date Erlin Banks MD [address] [place] [address] [place] [phone] PCP - General 02/21/08 documented as of this encounter
--- OUTSIDE RECORDS SUMMARY | 2024-03-20 18:18 | External Medical Summary | Summary of Care ---
Author Name Unknown Organization [facility] Address [address] [facility] [place] [address] Phone [phone] Care Team Providers Care Inspecting Supervisor Name Role Phone Erlin Banks MD Primary Care Provider [phone] Reason for Visit * Reason Comments Follow Up Pt here for 3 month f/u for dermatitis. Pt states things are mostly the same, maybe a little improvement. Encounter Details Date Type Department Care Team (Late st Contact Info) Description 01/21/2024 3:00 PM EDT Office Visit Dermatology [address] [place] [address] Kenzie Martinez PA-C [address] [place] [address] [place] [address] Dermatitis* Allergies Active Allergy Reactions Criticality Noted [...] persistent asthma without complication 0.63 mg NEBULIZER [id number] 08/21/2018 Acti ve Albuterol Sulfate (Proventil) (2.5 MG/3ML) 0.083% inhalation solution 2.5 mgIndications:Severe persistent asthma with acute exacerbation 2.5 mg NEBULIZER Q4H PRN 11/17/2021 Active Benralizumab (Fasenra) prefilled syringe 30 mgIndications:Severe persistent asthma without complication 30 mg SC [id number] 04/23/2023 03/23/2024 Acti ve documented as of [...] documented in this encounter Progress Notes * Jarrell Dela Cruz MD - 01/22/2024 8:36 AM EDT I have seen and examined the patient via teledermatology review of chart note and photos with Kenzie Martinez PA-C. I have reviewed and agree with the assessment and plan. * Kenzie Martinez PA-C - 01/21/2024 3:00 PM EDT SUBJECTIVE: History of Present Illness: Kali Nunes is a 78 year old male seen today for follow up of chronic dermatitis. Previous office visit: 09/24/2023 Last attempted treatments include: final patch test read (2+ bacitracin) Hx of dermatitis (seen in [facility] office since 2010, treated hands with PUVA [...] NONE Reviewed, same day as visit, 0 [facility] Dermatology lab work(s)/pathology report(s) as well as [...] There is noevidence of a folliculitis or Marvin disease after extensive sectioning of the submitted [...] Kenzie Martinez PA-C 01/21/2024 3:41 PM Dermatology [address] [place] [address] documented in this encounter Nursing Notes * [...] 10:00 AM EDT Office Visit Family Medicine [address] [place] [phone] Megan Flores MD [address] [place] [address] [place] [phone] 03/07/2024 1:30 PM EDT Nurse Only Pulmonary Medicine, [facility] [address] [place] [address] Gw, Nurse Pulmonary [address] [place] [address] Health Maintenance Due Date Last Done Comments [...] interpreted or resulted by a [facility] or [facility] contracted radiologist. Kenzie Martinez PA-C RADIOLOGY ([facility]) * DERM IMAGE (SITE) (01/21/2024) 01/21/2024 Kenzie Martinez PA-C DIGITAL PHOTOG RODOLFO documented in this encounter Visit Diagnoses Diagnosis Dermatitis- Primary Contact dermatitis and other eczema, due to unspecified cause documented in this encounter Care Teams Inspecting Supervisor Relationship Specialty Start Date End Date Erlin Banks MD [address] [place] [address] [place] [phone] PCP - General 02/21/08 documented as of this encounter
--- OUTSIDE RECORDS SUMMARY | 2024-03-20 18:19 | External Medical Summary | Summary of Care ---
Author Name Unknown Organization [facility] [address] [facility] [address] Phone [phone] Care Team Providers Care Lead Installer Name Role Phone Erlin Banks MD Primary Care Provider [phone] Encounter Details Date Type Department Care Team (Late st Contact Info) Description 11/01/2023 3:00 PM EST Nurse Only Pulmonary Medicine, [facility] 132 [facility] [place] [address] Gw, Nurse Pulmonary 132 [facility] [place] [phone] Arrived Allergies Active Allergy Reactions Criticality Noted Date Comments Amoxicillin-Pot Clavulanate 09/21/20 22 vomiting Cefdinir Diarrhea 11/11/2018 Other Allergy (See Comments) Rash 07/24/2023 2+ Bacitracin - patch testing 07/24/23 documented as of this encounter (statuses as of 11/01/2023) Medications Medication Sig Dispensed Refills Start Date End Date Status Ipratropium-Albuter ol 0.5-2.5 (3) MG/3ML Inhalation Solution (Duoneb)Indications :Moderate persistent asthma with exacerbation INHALE ONE VIAL VIA NEBULIZER FOUR TIMES DAILY 360 mL 5 09/22/2022 Active Albuterol Sulfate HFA 108 (90 Base) MCG/ACT Inhalation Aerosol SolutionIndications :Bronchiectasis without complication (HCC),Severe persistent asthma without complication INHALE TWO PUFFS FOUR TIMES DAILY 18 g 5 03/20/2023 Active Fluticasone Furoate-Vilanterol 200-25 MCG/ACT Inhalation Aerosol Powder Breath Activated (BREO ellipta)Indications :Severe persistent asthma without complication INHALE ONE PUFF BY MOUTH EVERY DAY 60 Blister Dosing Unit 11 04/19/2023 Active Triamcinolone Acetonide 0.1 % External Cream (Aristocort)Indicat ions:Dermatitis Apply topically to affected area 2 times a day. To affected area. 60 g 5 04/26/2023 Active Cetirizine HCl 10 MG Oral Tablet (ZyrTEC Allergy)Indications :Itching Take 1 Tablet by mouth in the morning. 30 Tablet 5 04/26/2023 Active Simvastatin 20 MG Oral Tablet (Zocor)Indications: [...] 1 08/30/2023 Active Benzonatate 100 MG Oral CapsuleIndications: Viral URI with cough Take one capsule three times a day as needed for cough 30 Capsule 1 08/30/2023 Active Promethazine-DM 6.25-15 MG/5ML Oral SyrupIndications:Vi ral URI with cough Take 5 mL by mouth 4 times a day as needed for Cough. 120 mL 1 08/30/2023 Active Fasenra 30 MG/ML Subcutaneous Solution Prefilled Syringe (Benralizumab)Indic ations:Severe persistent asthma without complication,Severe persistent asthma with acute exacerbation Inject 1 mL under the skin every 8 weeks. 1 mL 0 09/25/2023 Active Hospital, Clinic, or Other Facility Administered Medication Ordered Dose Route Frequency Start Date End Date Status Albuterol Sulfate (ACCUNEB) nebulizer solution 0.63 mgIndications:Moderate persistent asthma without complication 0.63 mg NEBULIZER [id number] 08/21/2018 Acti ve Albuterol Sulfate (Proventil) (2.5 MG/3ML) 0.083% inhalation solution 2.5 mgIndications:Severe persistent asthma with acute exacerbation 2.5 mg NEBULIZER Q4H PRN 11/17/2021 Active Benralizumab (Fasenra) prefilled syringe 30 mgIndications:Severe persistent asthma without complication 30 mg SC [id number] 04/23/2023 03/23/2024 Acti ve documented as of this encounter (statuses as of 11/01/2023) Active Problems Problem Noted Date Diagnosed Date [...] as of this encounter (statuses as of 11/01/2023) Resolved Problems Problem Noted Date Diagnosed Date [...] Overview: Vitamin D 20.1 Mixed dyslipidemia 07/08/2009 12/08/200 9 Overview: Per Lipid Taxonomy. CHOL 224, [...] as of this encounter (statuses as of 11/01/2023) Immunizations Name Administration Dates Next Due COVID-19 mRNA, LNP-s, No Pre serve, 2-Dose Series ([employer] SMS) 02/01/2021,01/06/2021 Pneumococcal Conjugate Vacc, 13 Valent (Prevnar) [...] Care Team (Late st Contact Info) Description 11/27/2023 1:00 PM EST Office Visit Sleep Disorders Ctr [facility] 132 [facility] [place] [phone] Leonor Kitchen CRNP 132 [facility] [place] [address] 01/03/2024 2:00 PM EDT Nurse Only Pulmonary Medicine, [facility] 132 [facility] [place] [address] Gw, Nurse Pulmonary 132 [facility] [place] [address] 01/21/2024 3:00 PM EDT Office Visit Dermatology [address] [place] [address] Kenzie Martinez PA-C [address] [place] [address] [place] [address] 03/06/2024 10:40 AM EDT Office Visit Family Medicine [address] [place] [phone] Megan Flores MD [address] [place] [address] [place] [phone] Health Maintenance Due Date Last Done Comments COLONOSCOPY-EVERY 3 YRS AGES 18-100 02/02/2020 02/01/2017, 02/01/2017, 11/23/2011 (Refused), Additional history exists Depression Screening 08/25/2021 08/25/2020 COVID-19 Vaccine (3 - 2022- season) 2023 02/01/2021, 01/06/2021 Influenza Vaccine (FLU shot) (#1) 2023 08/31/2022, 08/06/2020, 09/10/2019, Additional history exists DTaP,Tdap,and [...] filedocumented as of this encounter Administered Medications Active Administered Medications - up to 3 most recent administrations Medication Order MAR Action Action Date Dose Rate Site Benralizumab (Fasenra) prefilled syringe 30 mg 30 mg, Subcutaneous, [id number], First dose on Sun04/23/23 at 0000, Last dose on Sun01/28/24 at 0000, For 6 doses Given 11/01/2023 2:36 PM EST 30 mg Arm L eft Upper Given 08/31/2023 1:22 PM EST 30 mg Ar m Left Upper Given 06/29/2023 1:20 PM EDT 30 mg Ar m Left Upper documented in this encounter Care Teams Lead Installer Relationship Specialty Start Date End Date Erlin Banks MD [address] [place] [address] [place] [address] PCP - General 02/21/08 documented as of this encounter
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
--- OUTSIDE RECORDS SUMMARY | 2024-03-20 18:19 | External Medical Summary ---
Author Name Unknown Address Unknown Organization [id number]:LABORATORY [facility] - [address] [facility] [address] [place] [address] Laboratory Report Ordering Provider Test Date Status DUYEN RAMESH 01/21/2024 15:19:55 Final Observation Date Value Abnormality Reference (Units ) Status WBC, Total 01/21/2024 15:19:55 8.10 4.00-10.80 (K/uL) Final RBC 01/21/2024 15:19:55 4.71 4.50-5.25 (M/uL) Final Hemoglobin 01/21/2024 15:19:55 14.6 14.0-16.8 (g/dL) Final HCT 01/21/2024 15:19:55 46.0 40.0-48.4 (%) Final MCV 01/21/2024 15:19:55 97.7 82.0-99.5 (fL) Final MCH 01/21/2024 15:19:55 31.0 27.0-34.0 (pg) Final MCHC 01/21/2024 15:19:55 31.7 32.0-36.0 (g/dL) Final RDW 01/21/2024 15:19:55 13.0 11.5-15.5 (%) Final Platelets 01/21/2024 15:19:55 224 140-400 (K/uL) Final MPV 01/21/2024 15:19:55 11.8 6.6-11.1 (fL) Final Nucleated erythrocytes/100 leukocytes [Ratio] in Blood by Automated count 01/21/2024 15:19:55 0 <=0 (/100 WBCs) Final Performing Location LABORATORY [facility] - [address] [place] [address]
--- OUTSIDE RECORDS SUMMARY | 2024-03-20 18:19 | External Medical Summary ---
Author Name Unknown Address Unknown Organization [id number]:[facility] - [address] [facility] [place] [address] Laboratory Report Ordering Provider Test Date Status DUYEN RAMESH 01/21/2024 15:19:55 Final Observation Date Value Abnormality Reference (Units ) Status SYNC LEUKOCYTES IN BLOOD BY AUTOMATED COUNT 01/21/2024 15:19:55 8.10 4.00-10.80 (K/uL) Final Segs 01/21/2024 15:19:55 75.8 Above high normal 40.0-75.0 (%) Final Lymphs % 01/21/2024 15:19:55 12.7 Below low normal 18.0-42.0 (%) Final Monos 01/21/2024 15:19:55 10.1 1.0-11.0 (%) Final Eosinophils 01/21/2024 15:19:55 0.1 0.0-6.0 (%) Final Basos 01/21/2024 15:19:55 0.2 0.0-2.0 (%) Final Immature Granulocyte, Percent 01/21/2024 15:19:55 1.1 0.0-2.0 (%) Final Absolute Segs 01/21/2024 15:19:55 6.13 1.80-7.70 (K/uL) Final Lymphs, absolute 01/21/2024 15:19:55 1.03 1.00-4.80 (K/ul) Final Monos, Abs 01/21/2024 15:19:55 0.82 0.00-1.10 (K/uL) Final Eos, Abs 01/21/2024 15:19:55 0.01 0.00-0.70 (K/uL) Final Basos, Abs 01/21/2024 15:19:55 0.02 0.00-0.20 (K/uL) Final Immature Granulocytes, Number 01/21/2024 15:19:55 0.09 0.00-0.20 (K/uL) Final Performing Location [facility] - [facility] [address] [place] [address]
--- OUTSIDE RECORDS SUMMARY | 2024-03-20 18:19 | External Medical Summary | Summary of Care ---
Author Name Unknown Organization [facility] Address [address] [facility] [place] [address] Phone [phone] Care Team Providers Care Relief Pharmacist Name Role Phone Erlin Banks MD Primary Care Provider [phone] Reason for Visit * Reason Comments Pulmonary Function Test PFT with broncho dilator Oxygen Assessment 6 [address] Encounter Details Date Type Department Care Team (Latest Contact Info) Description 10/25/2023 1:00 PM EST PulmDiagnostic Pulmonary Function Lab, [facility] [address] [facility] [place] [address] [place], Pft [facility] [place] [address] Severe persistent asthma without complication* Allergies Active Allergy Reactions Criticality Noted Date Comments Amoxicillin-Pot Clavulanate 09/21/20 22 vomiting Cefdinir Diarrhea 11/11/2018 Other Allergy (See Comments) Rash 07/24/2023 2+ Bacitracin - patch testing 07/24/23 documented as of this encounter (statuses as of 10/25/2023) Medications Medication Sig Dispensed Refills Start Date [...] persistent asthma without complication 0.63 mg NEBULIZER [id number] 08/21/2018 Acti ve Albuterol Sulfate (Proventil) (2.5 MG/3ML) 0.083% inhalation solution 2.5 mgIndications:Severe persistent asthma with acute exacerbation 2.5 mg NEBULIZER Q4H PRN 11/17/2021 Active Benralizumab (Fasenra) prefilled syringe 30 mgIndications:Severe persistent asthma without complication 30 mg SC [id number] 04/23/2023 03/23/2024 Acti ve documented as of this encounter (statuses as of 10/25/2023) Active Problems Problem Noted Date Diagnosed Date [...] as of this encounter (statuses as of 10/25/2023) Resolved Problems Problem Noted Date Diagnosed Date [...] as of this encounter (statuses as of 10/25/2023) Immunizations Name Administration Dates Next Due COVID-19 mRNA, LNP-s, No Pre serve, 2-Dose Series ([employer]) 02/01/2021,01/06/2021 Pneumococcal Conjugate Vacc, 13 Valent (Prevnar) [...] Date Smoking Tobacco: Never Smokeless Tobacco: Never Tobacco Cessation:Counseling Given: Not Answered Comments:no passive smoke Alcohol Use Standard Drinks/Week [...] Sign Reading Time Taken Comments Blood Pressure 122/76 10/25/2023 12:59 PM EST Pulse 90 10/25/2023 12:59 PM EST Temperature - - Respiratory Rate 18 10/25/2023 12:59 PM EST Oxygen Saturation 96% 10/25/2023 12:59 PM EST Inhaled Oxygen Concentration - - Weight 69.4 kg (153 lb) 10/25/2023 12:59 PM EST Height 168 cm (5' 6.14") 10/25/2023 12:59 PM EST Body Mass Index 24.59 10/25/2023 12:59 PM EST documented in this encounter Nursing Notes * Lima Phillips, OG - 10/25/2023 1:01 PM EST Kali Nunes was identified by name, Date of : (1945), and . Vitals were obtained for testing. Body mass index is 24.59 kg/m. Pt does not have a smoking history. 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 Spirometry, DLCO, RAW, and TGV performed. A slow volume nebulizer treatment of 0.5ml ofalbuterol in 3 ml of NSS was given. The proper method of use, as well as anticipated side effects, of this svn are discussed and demonstrated to the patient. Patient demonstrates adequate delivery. Exercise oximetry performed on room air x 6 minutes. Pt ambulated 1200 feet/ 366 meters. No rest periods were required. Lowest SPO2 on room air was 93%. Administrations This Visit Albuterol Sulfate (Proventil) (2.5 MG/3ML) 0.083% inhalation solution 2.5 mg Admin Date 10/25/2023 Action Given Dose 2.5 mg Route Nebulizer Documented By Lima Phillips RRT documented in this encounter Plan of Treatment Upcoming Encounters Date Type Department Care Team (Late st Contact Info) Description 11/01/2023 3:00 PM EST Nurse Only Pulmonary Medicine, [facility] 132 [facility] [place] [address] Gw, Nurse Pulmonary 132 [facility] [place] [address] 11/27/2023 1:00 PM EST Office Visit Sleep Disorders [facility] 132 [facility] [place] [phone] Leonor Kitchen CRNP 132 [facility] [place] [address] 12/19/2023 8:20 AM EST Office Visit Dermatology [address] [place] [address] Kenzie Martinez PA-C [address] [place] [address] [place] [address] 03/06/2024 10:40 AM EDT Office Visit Family Medicine [address] [place] [phone] Megan Flores MD [address] [place] [address] [place] [phone] Pending Results Name Type Priority Associated Diagnoses Date /Time LUNG VOLUMES (PLETHYSMOGRAPHY) Procedures Routine Severe persistent asthma without complication 10/25/2023 12:40 PM EST SPIROMETRY B/A BRONCHODILATOR Procedures Routine Severe persistent asthma without complication 10/25/2023 12:40 PM EST DIFFUSION CAPACITY (DLCO) Procedures Routine Severe persistent asthma without complication 10/25/2023 12:40 PM EST Health Maintenance Due Date Last Done Comments [...] Procedure Name Priority Date/Time Associated Diagnosis Comments DIFFUSION CAPACITY (DLCO) Routine 2023 12:40 PM EST Severe persistent asthma without complication LUNG VOLUMES (PLETHYSMOGRAPHY) Routine 10/25/2023 12:40 PM EST Severe persistent asthma without complication SPIROMETRY B/A BRONCHODILATOR Routine 10/25/2023 12:40 PM EST Severe persistent asthma without complication documented in this encounter Visit Diagnoses Diagnosis Severe persistent asthma without complication- Primary documented in this encounter Administered Medications Active Administered Medications - up to 3 most recent administrations Medication Order MAR Action Action Date Dose Rate Site Albuterol Sulfate (Proventil) (2.5 MG/3ML) 0.083% inhalation solution 2.5 mg 2.5 mg, Nebulizer, Q4H PRN once for PFT, Starting on [place] 11/17/21 at 1307, Until Discontinued Given 10/25/2023 1:01 PM EST 2.5 mg Given 01/12/2022 9:48 AM EDT 2.5 mg documented in this encounter Care Teams Relief Pharmacist Relationship Specialty Start Date End Date Erlin Banks MD [address] [place] [address] [place] [phone] PCP - General 02/21/08 documented as of this encounter
--- OUTSIDE RECORDS SUMMARY | 2024-03-20 18:19 | External Medical Summary | Summary of Care ---
Author Name Unknown Organization [facility] Address [address] [place] [address] Phone [phone] Care Team Providers Care Senior User Experience Architect Name Role Phone Erlin Banks MD Primary Care Provider [phone] Encounter Details Date Type Department Care Team (Late st Contact Info) Description 01/09/2024 Telephone Pulmonary Medicine, [place] [address] [place] [address] [facility] [address] [place] [address] Allergies Active Allergy Reactions Criticality Noted Date Comments Amoxicillin-Pot Clavulanate 09/21/20 22 vomiting Cefdinir Diarrhea 11/11/2018 Other Allergy (See Comments) Rash 07/24/2023 2+ Bacitracin - patch testing 07/24/23 documented as of this encounter (statuses as of 01/09/2024) Medications Medication Sig Dispensed Refills Start Date [...] 8 weeks. 1 mL 5 01/09/2024 Active Fasenra 30 MG/ML Subcutaneous Solution Prefilled Syringe (Benralizumab)Ind ications:Severe persistent asthma without complication,Екатерина re persistent asthma with acute exacerbation Inject 1 mL under the skin every 8 weeks. 1 mL 0 09/25/2023 4 Discontinue d(Refill) Hospital, Clinic, or Other Facility Administered Medication Ordered Dose Route Frequency Start Date End Date Status Albuterol Sulfate (ACCUNEB) nebulizer solution 0.63 mgIndications:Moderate persistent asthma without complication 0.63 mg NEBULIZER [id number] 08/21/2018 Acti ve Albuterol Sulfate (Proventil) (2.5 MG/3ML) 0.083% inhalation solution 2.5 mgIndications:Severe persistent asthma with acute exacerbation 2.5 mg NEBULIZER Q4H PRN 11/17/2021 Active Benralizumab (Fasenra) prefilled syringe 30 mgIndications:Severe persistent asthma without complication 30 mg SC [id number] 04/23/2023 03/23/2024 Acti ve documented as of this encounter (statuses as of 01/09/2024) Active Problems Problem Noted Date Diagnosed Date [...] as of this encounter (statuses as of 01/09/2024) Resolved Problems Problem Noted Date Diagnosed Date [...] as of this encounter (statuses as of 01/09/2024) Immunizations Name Administration Dates Next Due COVID-19 mRNA, LNP-s, No Pre serve, 2-Dose Series (COPsync) 02/01/2021,01/06/2021 Pneumococcal Conjugate Vacc, 13 Valent (Prevnar) [...] 01/21/2024 3:00 PM EDT Office Visit Dermatology [address] [place] [address] Kenzie Martinez PA-C [address] [place] [address] [place] [address] 03/06/2024 10:00 AM EDT Office Visit Family Medicine [address] [place] [phone] Megan Flores MD [address] [place] [address] [place] [address] 03/07/2024 1:30 PM EDT Nurse Only Pulmonary Medicine, [facility] [address] [place] [address] Gw, Nurse Pulmonary [address] [place] [address] Health Maintenance Due Date Last Done Comments [...] exacerbation documented in this encounter Care Teams Senior User Experience Architect Relationship Specialty Start Date End Date Erlin Banks MD [address] [place] [address] [place] [phone] PCP - General 02/21/08 documented as of this encounter
--- OUTSIDE RECORDS SUMMARY | 2024-03-20 18:19 | External Medical Summary ---
Author Name Unknown Address Unknown Organization K01:[facility] [place] - [address] [place] [address] Laboratory Report Ordering Provider Test Date Status DUYEN RAMESH 01/21/2024 15:19:55 Final Observation Date Value Abnormality Reference (Units ) Status TSH 01/21/2024 15:19:55 1.38 0.27-4.20 (uIU/mL) Final Performing Location LABORATORY C - [address] [place] [address]
--- OUTSIDE RECORDS SUMMARY | 2024-03-20 18:19 | External Medical Summary | Summary of Care ---
Author Name Unknown Organization [facility] Address [address] [facility] [place] [address] Phone [phone] Care Team Providers Care Director Of Safety And Security Name Role Phone Erlin Banks MD Primary Care Provider [phone] Encounter Details Date Type Department Care Team (Late st Contact Info) Description 01/03/2024 2:00 PM EDT Nurse Only Pulmonary Medicine, [facility] [address] [place] [address] Gw, Nurse Pulmonary 132 [facility] [place] [address] Arrived Allergies Active Allergy Reactions Criticality Noted Date Comments Amoxicillin-Pot Clavulanate 09/21/20 22 vomiting Cefdinir Diarrhea 11/11/2018 Other Allergy (See Comments) Rash 07/24/2023 2+ Bacitracin - patch testing 07/24/23 documented as of this encounter (statuses as of 01/03/2024) Medications Medication Sig Dispensed Refills Start Date [...] Additional Information Patient not taking.Reported on 11/27/2023 Fasenra 30 MG/ML Subcutaneous Solution Prefilled Syringe (Benralizumab)Oksana cations:Severe persistent asthma without complication,Sever e persistent asthma with acute exacerbation Inject 1 mL under the skin every 8 weeks. 1 mL 0 09/25/2023 Active Airsupra 90-80 MCG/ACT Inhalation Aerosol (Albuterol-Budeson refugio) Take 2 doses by mouth up to 6 times a day as needed for shortness of breath, wheezing or cough 10.7 g 2 11/27/2023 Active Ipratropium-Albute rol 0.5-2.5 (3) MG/3ML Inhalation Solution (Duoneb)Indication s:Moderate persistent asthma with exacerbation INHALE ONE VIAL VIA NEBULIZER FOUR TIMES DAILY 360 mL 5 12/11/2023 Active Hospital, Clinic, or Other Facility Administered Medication Ordered Dose Route Frequency Start Date End Date Status Albuterol Sulfate (ACCUNEB) nebulizer solution 0.63 mgIndications:Moderate persistent asthma without complication 0.63 mg NEBULIZER [id number] 08/21/2018 Acti ve Albuterol Sulfate (Proventil) (2.5 MG/3ML) 0.083% inhalation solution 2.5 mgIndications:Severe persistent asthma with acute exacerbation 2.5 mg NEBULIZER Q4H PRN 11/17/2021 Active Benralizumab (Fasenra) prefilled syringe 30 mgIndications:Severe persistent asthma without complication 30 mg SC [id number] 04/23/2023 03/23/2024 Acti ve documented as of this encounter (statuses as of 01/03/2024) Active Problems Problem Noted Date Diagnosed Date [...] as of this encounter (statuses as of 01/03/2024) Resolved Problems Problem Noted Date Diagnosed Date [...] as of this encounter (statuses as of 01/03/2024) Immunizations Name Administration Dates Next Due COVID-19 [...] 01/21/2024 3:00 PM EDT Office Visit Dermatology [address] [place] [phone] Kenzie Martinez PA-C [address] [place] [address] [place] [address] 03/06/2024 10:00 AM EDT Office Visit Family Medicine [address] [place] [phone] Megan Flores MD [address] [place] [address] [place] [address] 03/07/2024 1:30 PM EDT Nurse Only Pulmonary Medicine, [facility] [address] [place] [address] , Nurse Pulmonary [address] [place] [address] Health Maintenance Due Date Last Done Comments [...] prefilled syringe 30 mg 30 mg, Subcutaneous, [id number], First dose on Sun04/23/23 at 0000, Last dose on Sun01/28/24 at 0000, For 6 doses Given 01/03/2024 1:41 PM EDT 30 mg Arm L eft Upper Given 11/01/2023 2:36 PM EST 30 mg Ar m Left Upper Given 08/31/2023 1:22 PM EST 30 mg Ar m Left Upper documented in this encounter Care Teams Director Of Safety And Security Relationship Specialty Start Date End Date Erlin Banks MD [address] [place] [address] [place] [address] PCP - General 02/21/08 documented as of this encounter
--- OUTSIDE RECORDS SUMMARY | 2024-03-20 18:19 | External Medical Summary | Summary of Care ---
Author Name Unknown Organization [facility] Address [address] [place] [address] Phone [phone] Care Team Providers Care Snap Attacher Name Role Phone Erlin Banks MD Primary Care Provider [phone] Reason for Referral * Evaluate & Treat - Unlimited Visits (Within 10 days (routine)) - Authorized Specialty Diagnoses / Procedures Referred By Steve waters Referred To Contact Pharmacist / Pharmacy Diagnoses 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 agents Kenzie Martinez PA-C [address] [place] [address] Referral ID Status Reason Start Date Expiration Date Visits Requested Visits Authorized [id number] Authorized Specialty Services Required 3 99 99 Question Answer Referral Priority Within 10 days (routine) Where should this appointment be scheduled? [facility] Department: Specialist Specialty: Derm Reason for Referral: UVB light therapy Comments Pharmacist Medication Therapy Management: Minimum frequency patient should be seen in person for medication management: as appropriate per clinical condition and patient status By my signature, I understand that my patient Kali Nunes will have his medication therapy managed by the [facility] Medication Therapy Disease Management Clinic ([facility]) per established policies, procedures, and protocols. I also certify that this referral may serve as an initiation of service for the management of drug therapy in the above noted patient. [facility] providers will be responsible for scheduling patient visits, obtaining appropriate laboratory studies, and adjusting medication management therapy per patient's need, in addition to those roles spelled out in the clinic policy, procedures, and drug management protocols. I understand that the service provided by the [facility] Clinic is voluntary and have informed patient that they can refuse the service at their discretion. I am aware that the [facility] will provide me with a copy of the patient encounter via my [email or web address]. I authorize the [facility] Clinic to carry out these activities on my behalf. I consider this program to be a necessary part of the patient's medical care. Reason for Visit * Reason Onset Date Comments Pre Authorization Request 09/24/2023 Encounter Details Date Type Department Care Team (Late st Contact Info) Description 09/24/2023 Telephone Dermatology [address] [place] [address] Kenzie Martinez PA-C [address] [place] [address] [place] [address] Pre Authorization Request Allergies Active Allergy Reactions [...] persistent asthma without complication 0.63 mg NEBULIZER [id number] 08/21/2018 Acti ve Albuterol Sulfate (Proventil) (2.5 MG/3ML) 0.083% inhalation solution 2.5 mgIndications:Severe persistent asthma with acute exacerbation 2.5 mg NEBULIZER Q4H PRN 11/17/2021 Active Benralizumab (Fasenra) prefilled syringe 30 mgIndications:Severe persistent asthma without complication 30 mg SC [id number] 04/23/2023 03/23/2024 Acti ve documented as of [...] Telephone Encounter - Kenzie Martinez PA-C - 10/17/2023 2:21 PM EST OK thanks for the update. I received an email this morning that it was taken over by [facility] [employer]- we will see if he calls them back. Kenzie Martinez DONOVAN Henderson * Telephone Encounter - Natty Ballesteros RPh - 10/17/2023 2:15 PM EST Patient has stopped responding to [facility] after multiple attempts. They have closed case [...] 09/25/2023 3:05 PM EST Order submitted to [facility] via [employer]. Order ID: [id number] . Will continue to follow. Natty Ballesteros [...] of Care: specialty medication - route to [id number]. Referral to pharmacist for: Pharmacist Co-management See corresponding visit note(s) for additional supporting clinical information. Office Information: Prescriber: Kenzie ROMO PA-C documented in this encounter Plan of Treatment Upcoming Encounters Date Type Department Care Team (Late st Contact Info) Description 10/25/2023 1:00 PM EST PulmDiagnostic Pulmonary Function Lab, [facility] [address] [facility] [place] [address] [place], [address] 132 [facility] [place] [address] 11/02/2023 2:00 PM EST Nurse Only Pulmonary Medicine, [facility] [address] [facility] [place] [address] Gw, Nurse Pulmonary [address] [facility] [place] [address] 11/27/2023 1:00 PM EST Office Visit Sleep Disorders Ctr [facility] [address] [facility] [place] [phone] Leonor Kitchen CRNP 132 [facility] [place] [address] 12/19/2023 8:20 AM EST Office Visit Dermatology [address] [place] [address] Kenzie Martinez PA-C [address] [place] [address] [place] [address] 03/06/2024 10:40 AM EDT Office Visit Family Medicine [address] [place] [phone] Megan Flores MD [address] [place] [address] [place] [address] Scheduled Referrals Name Type Priority Associated Diagnoses [...] Primary documented in this encounter Care Teams Snap Attacher Relationship Specialty Start Date End Date Erlin Banks MD [address] [place] [address] [place] [address] PCP - General 02/21/08 documented as of this encounter
--- OUTSIDE RECORDS SUMMARY | 2024-03-20 18:19 | External Medical Summary | Summary of Care ---
Author Name Unknown Organization [facility] Address [address] [facility] [place] [address] Phone [phone] Care Team Providers Care Blue Print Control Clerk Name Role Phone Erlin Banks MD Primary Care Provider [phone] Reason for Visit * Reason Comments eRx-Medication Refill Encounter Details Date Type Department Care Team (Late st Contact Info) Description 12/10/2023 Refill Family Medicine [address] [place] [address] Erlin Banks MD [address] [place] [address] [place] [address] Moderate persistent asthma with exacerbation Allergies Active Allergy Reactions Criticality Noted Date Comments Amoxicillin-Pot Clavulanate 09/21/20 22 vomiting Cefdinir Diarrhea 11/11/2018 Other Allergy (See Comments) Rash 07/24/2023 2+ Bacitracin - patch testing 07/24/23 documented as of this encounter (statuses as of 12/11/2023) Medications Medication Sig Dispensed Refills Start Date End Date Status Fluticasone Furoate-Vilantero l 200-25 MCG/ACT Inhalation Aerosol Powder Breath Activated (BREO ellipta)Indicatio ns:Severe persistent asthma without complication INHALE ONE PUFF BY MOUTH EVERY DAY 60 Blister Dosing Unit 11 3 Active Triamcinolone Acetonide 0.1 % External Cream (Aristocort)Indic ations:Dermatitis Apply topically to affected area 2 times a day. To affected area. 60 g 5 3 Active Cetirizine HCl 10 MG Oral Tablet (ZyrTEC Allergy)Indicatio ns:Itching Take 1 Tablet by mouth in the morning. 30 Tablet 5 3 Active Additional Information Patient not taking.Reported on [...] resolved, then when flaring 60 g 0 3 Active Tamsulosin HCl 0.4 MG Oral Capsule (Flomax)Indicatio ns:Urinary frequency Take 1 Capsule by mouth in the morning. Every morning.. 90 Capsule 1 3 Active Benzonatate 100 MG Oral CapsuleIndication s:Viral URI with cough Take one capsule three times a day as needed for cough 30 Capsule 1 3 Active Additional Information Patient not taking.Reported on 11/27/2023 Promethazine-DM 6.25-15 MG/5ML Oral SyrupIndications: Viral URI with cough Take 5 mL by mouth 4 times a day as needed for Cough. 120 mL 1 3 Active Additional Information Patient not taking.Reported on 11/27/2023 Fasenra 30 MG/ML Subcutaneous Solution Prefilled Syringe (Benralizumab)Ind ications:Severe persistent asthma without complication,Екатерина re persistent asthma with acute exacerbation Inject 1 mL under the skin every 8 weeks. 1 mL 0 3 Active Airsupra 90-80 MCG/ACT Inhalation Aerosol (Albuterol-Budeso nide) Take 2 doses by mouth up to 6 times a day as needed for shortness of breath, wheezing or cough 10.7 g 2 4 Active Ipratropium-Albut sherman 0.5-2.5 (3) MG/3ML Inhalation Solution (Duoneb)Indicatio ns:Moderate persistent asthma with exacerbation INHALE ONE VIAL VIA NEBULIZER FOUR TIMES DAILY 360 mL 5 4 Active Ipratropium-Albut sherman 0.5-2.5 (3) MG/3ML Inhalation Solution (Duoneb)Indicatio ns:Moderate persistent asthma with exacerbation INHALE ONE VIAL VIA NEBULIZER FOUR TIMES DAILY 360 mL 5 2 12/11/19 24 Discontinued Hospital, Clinic, or Other Facility Administered Medication Ordered Dose Route Frequency Start Date End Date Status Albuterol Sulfate (ACCUNEB) nebulizer solution 0.63 mgIndications:Moderate persistent asthma without complication 0.63 mg NEBULIZER [id number] 08/21/2018 Acti ve Albuterol Sulfate (Proventil) (2.5 MG/3ML) 0.083% inhalation solution 2.5 mgIndications:Severe persistent asthma with acute exacerbation 2.5 mg NEBULIZER Q4H PRN 11/17/2021 Active Benralizumab (Fasenra) prefilled syringe 30 mgIndications:Severe persistent asthma without complication 30 mg SC [id number] 04/23/2023 03/23/2024 Acti ve documented as of this encounter (statuses as of 12/11/2023) Active Problems Problem Noted Date Diagnosed Date [...] as of this encounter (statuses as of 12/11/2023) Resolved Problems Problem Noted Date Diagnosed Date [...] as of this encounter (statuses as of 12/11/2023) Immunizations Name Administration Dates Next Due COVID-19 [...] encounter Miscellaneous Notes * Telephone Encounter - Emilie Gloria RPh - 12/11/2023 7:59 AM ESTSigned Prescriptions: Disp Refills Ipratropium-Albuterol 0.5-2.5 (3) MG/3ML I*360 mL 5 Sig: INHALE ONE VIAL VIA NEBULIZER FOUR TIMES DAILYAuthorizing Provider: AAKASH BELLO User: EMILIE GLORIA documented in this encounter Plan of Treatment Upcoming Encounters Date Type Department Care Team (Late st Contact Info) Description 01/03/2024 2:00 PM EDT Nurse Only Pulmonary Medicine, [address] [place] [address] Gw, Nurse Pulmonary [address] [place] [address] 01/21/2024 3:00 PM EDT Office Visit Dermatology [address] [place] [address] Kenzie Martinez PA-C [address] [place] [address] [place] [address] 03/06/2024 10:00 AM EDT Office Visit Family Medicine [address] [place] [phone] Megan Flores MD [address] [place] [address] [place] [address] Health Maintenance Due Date Last Done Comments COLONOSCOPY-EVERY 3 YRS AGES 18-100 02/02/2020 02/01/2017, 02/01/2017, 11/23/2011 (Refused), Additional history exists Depression Screening 08/25/2021 08/25/2020 COVID-19 Vaccine (3 - 2022-24 season) 2023 02/01/2021, 01/06/2021 Influenza Vaccine (FLU [...] as of this encounter Visit Diagnoses Diagnosis Moderate persistent asthma with exacerbation Unspecified asthma, with exacerbation documented in this encounter Care Teams Blue Print Control Clerk Relationship Specialty Start Date End Date Erlin Banks MD [address] [place] [address] [place] [address] PCP - General 02/21/08 documented as of this encounter
--- OUTSIDE RECORDS SUMMARY | 2024-03-20 18:19 | External Medical Summary | Summary of Care ---
Author Name Unknown Organization [facility] Address [address] [place] [address] Phone [phone] Care Team Providers Care Escrow Assistant Name Role Phone Erlin Banks MD Primary Care Provider [phone] Reason for Visit * Reason Comments Follow Up Asthma Encounter Details Date Type Department Care Team (Late st Contact Info) Description 11/27/2023 1:00 PM EST Office Visit Sleep Disorders Ctr [facility] [address] [place] [phone] Leonor Kitchen CRNP [address] [place] [address] Severe persistent asthma without complication*; Eosinophilic asthma; Vaccine counseling Allergies Active Allergy Reactions Criticality Noted Date Comments Amoxicillin-Pot Clavulanate 09/21/20 22 vomiting Cefdinir Diarrhea 11/11/2018 Other Allergy (See Comments) Rash 07/24/2023 2+ Bacitracin - patch testing 07/24/23 documented as of this encounter (statuses as of 11/27/2023) Medications Medication Sig Dispensed Refills Start Date End Date Status Ipratropium-Albut sherman 0.5-2.5 (3) MG/3ML Inhalation Solution (Duoneb)Indicatio ns:Moderate persistent asthma with exacerbation INHALE ONE VIAL VIA NEBULIZER FOUR TIMES DAILY 360 mL 5 2 Active Fluticasone Furoate-Vilantero l 200-25 MCG/ACT Inhalation Aerosol [...] or cough 10.7 g 2 4 Active Albuterol Sulfate HFA 108 (90 Base) MCG/ACT Inhalation Aerosol SolutionIndicatio ns:Bronchiectasis without complication (HCC),Severe persistent asthma without complication INHALE TWO PUFFS FOUR TIMES DAILY 18 g 5 3 11/27/19 24 Discontinued Hospital, Clinic, or Other Facility Administered Medication Ordered Dose Route Frequency Start Date End Date Status Albuterol Sulfate (ACCUNEB) nebulizer solution 0.63 mgIndications:Moderate persistent asthma without complication 0.63 mg NEBULIZER [id number] 08/21/2018 Acti ve Albuterol Sulfate (Proventil) (2.5 MG/3ML) 0.083% inhalation solution 2.5 mgIndications:Severe persistent asthma with acute exacerbation 2.5 mg NEBULIZER Q4H PRN 11/17/2021 Active Benralizumab (Fasenra) prefilled syringe 30 mgIndications:Severe persistent asthma without complication 30 mg SC [id number] 04/23/2023 03/23/2024 Acti ve documented as of this encounter (statuses as of 11/27/2023) Active Problems Problem Noted Date Diagnosed Date [...] as of this encounter (statuses as of 11/27/2023) Resolved Problems Problem Noted Date Diagnosed Date [...] as of this encounter (statuses as of 11/27/2023) Immunizations Name Administration Dates Next Due COVID-19 mRNA, LNP-s, No Pre serve, 2-Dose Series (UKDN [place]) 02/01/2021,01/06/2021 Pneumococcal Conjugate Vacc, 13 Valent (Prevnar) [...] Sign Reading Time Taken Comments Blood Pressure 134/72 11/27/2023 12:40 PM EST Pulse 63 11/27/2023 12:40 PM EST Temperature 36.9 C (98.4 F) 11/27/2023 12:[address] Respiratory Rate 16 11/27/2023 12:40 PM EST Oxygen Saturation 97% 11/27/2023 12:40 PM EST Inhaled Oxygen Concentration - - Weight 69.9 kg (154 lb) 11/27/2023 12:40 PM EST Height 167.6 cm (5' 6") 11/27/2023 12:40 PM EST Body Mass Index 24.86 11/27/2023 12:40 PM EST documented in this encounter Progress Notes * Leonor Kitchen CRNP - 11/27/2023 12:47 PM EST Images from the original note were not included. 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 Reports 0 ER visits/hospitalization and 1 courses of prednisone related to their breathing in the past year (September 2023 with good response). Kali feels his breathing has remained at baseline in regarding to asthma control. He has not been taking ICS daily. He notes having some mild symptoms (dyspnea/tightness) during the night that responds well to nebulized DEB/VONDA. Otherwise, denies cough, sinus/chest congestion, hemoptysis. 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 Dyslipidemia, goal LDL below 100 E78.5 Deviated nasal septum J34.2 Bronchiectasis without complication (HCC) J47.9 At risk for aspiration Z91.89 Severe persistent asthma without complication J45.50 Primary osteoarthritis of both hands M19.041, M19.042 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 Tamsulosin HCl 0.4 MG Oral Capsule (Flomax) Take 1 Capsule by mouth in the morning. Every morning.. Clobetasol Propionate 0.05 % External Ointment (Temovate) Apply 2x daily (or more if itchy instead of scratching) to rash on trunk/arms/legs until resolved, then when flaring Simvastatin 20 MG Oral Tablet (Zocor) TAKE ONE TABLET BY MOUTH AT BEDTIME Triamcinolone Acetonide 0.1 % External Cream (Aristocort) Apply topically to affected area 2 times a day. To affected area. Fluticasone Furoate-Vilanterol 200-25 MCG/ACT Inhalation Aerosol Powder Breath Activated (BREO ellipta) INHALE ONE PUFF BY MOUTH EVERY DAY Ipratropium-Albuterol 0.5-2.5 (3) MG/3ML Inhalation Solution (Duoneb) INHALE ONE VIAL VIA NEBULIZERFOUR TIMES DAILY Current Facility-Administered Medications for the 11/27/23 encounter (Office Visit) with Leonor Kitchen CRNP Medication Benralizumab (Fasenra) prefilled syringe 30 mg Albuterol Sulfate (Proventil) (2.5 MG/3ML) 0.083% inhalation solution 2.5 mg Albuterol Sulfate (ACCUNEB) nebulizer solution 0.63 mg Social/occupational/living/family history: Home environment: Lives with , single family home about 40 yrs old, no pets, no mold/moisture issues in the home, hot water heat, carpeting present "old", finished basement, no recent renovations Review of Systems Constitutional: Negative for appetite change and fatigue. Weight stable HENT: Negative for congestion (intermittently noted) and trouble swallowing. Cardiovascular: Negative for chest pain and leg swelling. Gastrointestinal: No MILTON symptoms Neurological: Negative for headaches. Psychiatric/Behavioral: Negative for sleep disturbance (may struggle to get back to bed if he wakesnear morning). Diagnostics: Pulmonary Walk Test Results: Performed 10/25/2023 Exercise oximetry performed on room air x 6 minutes. Pt ambulated 1200 feet/ 366 meters. No rest periods were required. Lowest SPO2 on room air was 93%. Pulmonary Function Test Results: Performed on 10/25/2023 - stable Asthma Control Test Question 11/27/2023 12:44 PM EST - Filed by Radha Badillo LPN Please select the best response to the five questions below, by clicking the appropriate option button. In the past 4 weeks, how much of the time did your asthma keep you from getting as much done at work, school or at home? (5) None of the time During the past 4 weeks, how often have you had shortness of breath? (4) Once or twice a week During the past 4 weeks, how often did your asthma symptoms (wheezing, coughing, shortness of breath, chest tightness or pain) wake you up at night or earlier than usual in the morning? (5) Not at all During the past 4 weeks, how often have you used your rescue inhaler or nebulizer medication (such as albuterol)? (3) 2 or 3 times per week How would you rate your asthma control during the past 4 weeks? (4) Well controlled Total ACT Adult Score (range: 5 - 25) 21 (Well Controlled) Total ACT Child Score (range: 0 - 27) Incomplete BP 134/72 | Pulse 63 | Temp 36.9 C (98.4 F) (Tympanic) | Resp 16 | Ht 1.676 m (5' 6") | Wt 69.9kg (154 lb) | SpO2 97% | BMI 24.86 kg/m | BSA 1.8 m Physical Exam Vitals and nursing note reviewed. Statistician Mathematical present: none. Constitutional: General: He is not in acute distress. Appearance: He is normal weight. He is not ill-appearing or diaphoretic. HENT: Mouth/Throat: Mouth: Mucous membranes are moist. Cardiovascular: Rate and Rhythm: Normal rate and regular rhythm. Heart sounds: No murmur heard. Pulmonary: Effort: Pulmonary effort is normal. No respiratory distress. Breath sounds: Normal breath sounds. Musculoskeletal: Right lower leg: No edema. Left lower leg: No edema. Skin: General: Skin is warm and dry. Capillary Refill: Capillary refill takes less than 2 seconds. Neurological: Mental Status: He is alert and oriented to person, place, and time. Psychiatric: Mood and Affect: Mood normal. Thought Content: Thought content normal. Assessment and Plan: Encounter Diagnoses Name Primary? Severe persistent asthma without complication Yes Eosinophilic asthma ACT 21 Kali has done very well with Fasenra. Continue 30 mg every 8 weeks. Ok to change from Fasenra to Dupixent if Dermatology wants to treat chronic dermatitis. Will defer that decision to them. Kali has remained off of ICS treatment using ICS/LABA only on occasion. Discussed the newest guidelines for using DEB/ICS for rescue. He was interested in this option. AirSupra prescribed. Can inhale 2 doses up to 6 times a day for respiratory symptoms. Advised to use this over the nebulizer, as tolerated. Counseled on recommended vaccines including RSV, Covid19 and influenza. Discussed that the intent of vaccination is to decrease risk of hospitalization and . He declined these vaccinations today. Follow up in Pulmonary Medicine Clinic in 12 months, sooner as needed. [facility] I spent a total of 40-54 minutes (exact time 40 mins) on the date of service in preparation, delivery, and documentation of the care provided to Kali Nunes excluding any time spent in the performance of separately billed services. documented in this encounter Nursing Notes * Radha Badillo LPN - 11/27/2023 12:44 PM EST Chief Complaint Patient presents with Follow Up Asthma MMRC Dyspnea Scale = Per pt none apply Interm History/Respiratory Symptoms Cough: no Hemoptysis: no Sinus Symptoms: no Hospitalizations: no ED Trips: no Triggers: nothing Nocturnal: no CPAP/BiPAP/O2: no Asthma Control Test Question 11/27/2023 12:44 PM EST - Filed by Radha Badillo LPN Please select the best response to the five questions below, by clicking the appropriate option button. In the past 4 weeks, how much of the time did your asthma keep you from getting as much done at work, school or at home? (5) None of the time During the past 4 weeks, how often have you had shortness of breath? (4) Once or twice a week During the past 4 weeks, how often did your asthma symptoms (wheezing, coughing, shortness of breath, chest tightness or pain) wake you up at night or earlier than usual in the morning? (5) Not at all During the past 4 weeks, how often have you used your rescue inhaler or nebulizer medication (such as albuterol)? (3) 2 or 3 times per week How would you rate your asthma control during the past 4 weeks? (4) Well controlled Total ACT Adult Score (range: 5 - 25) 21 (Well Controlled) Total ACT Child Score (range: 0 - 27) Incomplete documented in this encounter Plan of Treatment Upcoming Encounters Date Type Department Care Team (Late st Contact Info) Description 01/03/2024 2:00 PM EDT Nurse Only Pulmonary Medicine, [facility] [address] [place] [phone] , Nurse Pulmonary [address] [place] [address] 01/21/2024 3:00 PM EDT Office Visit Dermatology [address] [place] [phone] Kenzie Martinez PA-C [address] [place] [address] [place] [phone] 03/06/2024 10:00 AM EDT Office Visit Family Medicine [address] [place] [phone] Megan Flores MD [address] [place] [address] [place] [phone] Health Maintenance Due Date Last Done Comments [...] Diagnosis Severe persistent asthma without complication- Primary Eosinophilic asthma Pulmonary eosinophilia Vaccine counseling documented in this encounter Care Teams Escrow Assistant Relationship Specialty Start Date End Date Erlin Banks MD [address] [place] [address] [place] [phone] PCP - General 02/21/08 documented as of this encounter
--- OUTSIDE RECORDS SUMMARY | 2024-03-20 18:19 | External Medical Summary | Summary of Care ---
Author Name Unknown Organization [facility] Address [address] [facility] [place] [address] Phone [phone] Care Team Providers Care Costume Rental Clerk Name Role Phone Erlin Banks MD Primary Care Provider [phone] Reason for Visit * Reason Comments Outpatient Testing Encounter Details Date Type Department Care Team (Late st Contact Info) Description 01/21/2024 3:30 PM EDT Laboratory Laboratory [address] [place] [phone] [place] [phone] Pruritus Allergies Active Allergy Reactions Criticality Noted Date [...] persistent asthma without complication 0.63 mg NEBULIZER [id number] 08/21/2018 Acti ve Albuterol Sulfate (Proventil) (2.5 MG/3ML) 0.083% inhalation solution 2.5 mgIndications:Severe persistent asthma with acute exacerbation 2.5 mg NEBULIZER Q4H PRN 11/17/2021 Active Benralizumab (Fasenra) prefilled syringe 30 mgIndications:Severe persistent asthma without complication 30 mg SC [id number] 04/23/2023 03/23/2024 Acti ve documented as of [...] 10:00 AM EDT Office Visit Family Medicine [address] [place] [phone] Megan Flores MD [address] [place] [address] [place] [phone] 03/07/2024 1:30 PM EDT Nurse Only Pulmonary Medicine, [facility] [address] [facility] [place] [phone] Gw, Nurse Pulmonary [address] [facility] [place] [phone] Pending Results Name Type Priority Associated Diagnoses Date /Time CBC WITH WBC DIFFERENTIAL Lab Routine Pruritus 01/21/2024 3:19 PM EDT TSH WITH FREE T4 IF INDICATED Lab Routine Pruritus 01/21/2024 3:19 PM EDT CBC Lab Routine Pruritus 01/21/2024 3:19 PM EDT DIFFERENTIAL, AUTOMATED Lab Routine Pruritus 01/21/2024 3:19 PM EDT Health Maintenance Due Date Last Done Comments [...] as of this encounter Visit Diagnoses Diagnosis Pruritus Unspecified pruritic disorder documented in this encounter Care Teams Costume Rental Clerk Relationship Specialty Start Date End Date Erlin Banks MD [address] [place] [address] [place] [phone] PCP - General 02/21/08 documented as of this encounter
--- OUTSIDE RECORDS SUMMARY | 2024-03-20 18:20 | External Medical Summary | Summary of Care ---
Author Name Unknown Organization [facility] Address [address] [facility] [place] [address] Phone [phone] Care Team Providers Care Body And Fender Mechanic Name Role Phone Erlin Euceda MD Primary Care Provider [phone] Reason for Visit * Reason Comments Follow Up Pt here for 2 month f/u for dermatitis. Pt states that dermatitis is about the same as always, very itchy. Encounter Details Date Type Department Care Team (Late st Contact Info) Description 09/24/2023 1:20 PM EST Office Visit Dermatology [address] [place] [address] Kenzie Martinez PA-C [address] [place] [address] [place] [phone] 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 agents* Allergies Active Allergy Reactions Criticality Noted Date Comments Amoxicillin-Pot Clavulanate 09/21/20 22 vomiting Cefdinir Diarrhea 11/11/2018 Other Allergy (See Comments) Rash 07/24/2023 2+ Bacitracin - patch testing 07/24/23 documented as of this encounter (statuses as of 09/24/2023) Medications Medication Sig Dispensed Refills Start Date [...] TIMES DAILY 18 g 5 03/20/2023 Active Fasenra 30 MG/ML Subcutaneous Solution Prefilled Syringe (Benralizumab)Indic ations:Severe persistent asthma with acute exacerbation Inject 1 mL under the skin every 8 weeks. 1 mL 3 04/19/2023 Active Fluticasone Furoate-Vilanterol 200-25 MCG/ACT Inhalation Aerosol Powder Breath Activated (BREO ellipta)Indications :Severe persistent asthma without complication INHALE ONE PUFF BY MOUTH EVERY DAY 60 Blister Dosing Unit 11 04/19/2023 Active Triamcinolone Acetonide 0.1 % External Cream (Aristocort)Indicat ions:Dermatitis Apply topically to affected area 2 times a day. To affected area. 60 g 04/26/2023 Active Cetirizine HCl 10 MG Oral [...] for Cough. 120 mL 1 08/30/2023 Active Hospital, Clinic, or Other Facility Administered Medication Ordered Dose Route Frequency Start Date End Date Status Albuterol Sulfate (ACCUNEB) nebulizer solution 0.63 mgIndications:Moderate persistent asthma without complication 0.63 mg NEBULIZER [id number] 08/21/2018 Acti ve Albuterol Sulfate (Proventil) (2.5 MG/3ML) 0.083% inhalation solution 2.5 mgIndications:Severe persistent asthma with acute exacerbation 2.5 mg NEBULIZER Q4H PRN 11/17/2021 Active Benralizumab (Fasenra) prefilled syringe 30 mgIndications:Severe persistent asthma without complication 30 mg SC [id number] 04/23/2023 03/23/2024 Acti ve documented as of this encounter (statuses as of 09/24/2023) Active Problems Problem Noted Date Diagnosed Date [...] as of this encounter (statuses as of 09/24/2023) Resolved Problems Problem Noted Date Diagnosed Date [...] as of this encounter (statuses as of 09/24/2023) Immunizations Name Administration Dates Next Due COVID-19 mRNA, LNP-s, No Pre serve, 2-Dose Series (Pfizer) 02/01/2021,01/06/2021 Pneumococcal Conjugate Vacc, 13 Valent (Prevnar) 01/15/2015 Pneumococcal Polysaccharide PPV23 (Pneumovax) ,08/18/2002 SEASONAL INFLUENZA, PF, 6 M & Above, IM , (FLULAVAL or FLUZONE) 07/04/2018,09/27/2017 Season Influenza, Quad, PF, Adjuvanted, 65+ Yrs, IM (FLUAD) 08/06/2020 Seasonal Influenza, Quadrivalent Hd (Fluzone Hd) 08/31/2022 [...] * Patient Instructions* Kenzie Martinez PA-C - 09/24/2023 1:37 PM EST The side effects of chronic topical steroid use were discussed with patient and include but are notlimited to telangiectasia (broken blood vessels), striae (stretch trinidad), atrophy (thin skin), purpura (bruising), allergic contact [...] documented in this encounter Progress Notes * Alex Spence MD - 09/24/2023 2:03 PM EST I have seen and examined via teledermatology review of chart note and photos the patient with Kenzie Martinez PA-C. I have reviewed and agree with the assessment and plan. 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 Images of today visit upper back sig secondary changes. Uncertain if labs done outside of [facility]? 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 Pt feels that dermatitis is slightly better than last office visit, does not get as itchy, per pt. Has been mostly sticking to products on the [facility] list. Using triamcinolone 0.1% cream (ran out) and clobetasol 0.05% ointment (using currently QOD when itchy) to flared areas. REVIEW OF SYSTEMS: SKIN: No other new [...] NONE Reviewed, same day as visit, 0 [facility] Dermatology lab work(s)/pathology report(s) as well as those sent by referring provider prior to seeing pt. MEDICA TIONS: Current Outpatient Medications Medication Sig Dispense Refill Ipratropium-Albuterol 0.5-2.5 (3) MG/3ML Inhalation Solution (Duoneb) INHALE ONE VIAL VIA NEBULIZERFOUR TIMES DAILY 360 mL 5 Albuterol Sulfate HFA 108 (90 Base) MCG/ACT Inhalation Aerosol Solution INHALE TWO PUFFS FOUR TIMESDAILY 18 g 5 Fasenra 30 MG/ML Subcutaneous Solution Prefilled Syringe (Benralizumab) Inject 1 mL under the skin every 8 weeks. 1 mL 3 Fluticasone Furoate-Vilanterol 200-25 MCG/ACT Inhalation Aerosol Powder [...] mouth in the morning. 30 Tablet 5 Simvastatin 20 MG Oral [...] as needed for cough 30 Capsule 1 Promethazine-DM 6.25-15 MG/5ML Oral Syrup Take 5 mL by mouth 4 times a day as needed for Cough. 120mL 1 Current Facility-Administered Medications Medication Dose Route Frequency Provider Last Rate Last Admin Albuterol Sulfate (ACCUNEB) nebulizer solution 0.63 mg 0.63 mg Nebulizer Resp Q4H Carolina Steward CRNP Albuterol Sulfate (Proventil) (2.5 MG/3ML) 0.083% inhalation solution 2.5 mg 2.5 mg Nebulizer Q4H PRN Leonor Kitchen CRNP 2.5 mg at 01/12/22 0948 Benralizumab (Fasenra) prefilled syringe 30 mg 30 mg Subcutaneous Q8 Weeks Leonor Kitchen CRNP 30 mg at 08/31/23 1322 ALLERG IES: Augmentin [amoxicillin-pot clavulanate], Cefdinir, and Other allergy (see comments) OBJECT GEORGINA: GEN: alert, no distress, appears oriented, pleasant, and cooperative. SKIN: Detailed exam of face including lids and lips, neck, chest, abdomen, back, and bilateral upper ext. (arm, hand, fingers) completed: 1A-B. Back/R posterior upper arm-Erythematous xerotic excoriated scaly eruption, prurigo nodules onupper back and R posterior upper arm. ASSESS [...] There is noevidence of a folliculitis or Winona disease after extensive sectioning of the submitted specimen. ACD (2+ Bacitracin) and chronic dermatitis on back/R posterior upper arm, flared since last office visit-Pt to continue with clobetasol 0.05% ointment BID to rash flaring (only using when itchy, about QOD). -Side effects of each medication discussed and treatment regimen written and printed on checkout sheet. -Printed entire [place] [facility] product list for patient at last office visit, explained to patient the need to make sure all products at home are on the list. 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 Wakefield in [facility]. Patient alone today. Photo(s) of #1-2 taken, pt verbally consented to having photo(s) taken. Follow-up: 3 months for chronic dermatitis/ACD Applicable photos (if any) and chart reviewed by Dr. lAex Spence. Presumed diagnoses, expected natural histories, and management [...] the visit and treatment. Kenzie Martinez PA-C 09/24/2023 1:21 PM Ref: SELF[[id number]] NO STREET ADDRESS AVAILABLE None (office) None (fax) PCP: ERLIN EUCEDA [address] [place] [address] [place] [address] [phone] documented in this encounter Nursing Notes * Nenita Marie LPN - 09/24/2023 1:02 PM EST Patient identified by full name and date of Chief Complaint Patient presents with Follow Up Pt here for 2 month f/u for dermatitis. Pt states that dermatitis is about the same as always, veryitchy. documented in this encounter Miscellaneous Notes * Addendum Note - Kina Reynoso LPN - 09/24/2023 1:52 PM ESTAddended by: KINA REYNOSO on: 09/24/2023 01:52 PM Modules accepted: Orders documented in this encounter Plan of Treatment Upcoming Encounters Date Type Department Care Team (Late st Contact Info) Description 10/25/2023 1:00 PM EST PulmDiagnostic Pulmonary Function Lab, [facility] [address] [place] [address] [place], [address] [place] [address] 11/02/2023 2:00 PM EST Nurse Only Pulmonary Medicine, [facility] [address] [facility] [place] [address] G[address], Nurse Pulmonary [address] [facility] [place] [address] 11/27/2023 1:00 PM EST Office Visit Sleep Disorders Ctr [facility] [address] [facility] [place] [phone] Leonor Kitchen CRNP [address] [facility] [place] [address] 03/06/2024 10:40 AM EDT Office Visit Family Medicine [address] [place] [phone] eMgan Flores MD [address] [place] [address] [place] [phone] Scheduled Orders Name Type Priority Associated Diagnoses Orde r Schedule HOME UVB LIGHT THERAPY UNIT Procedures Routine 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 agents Ordered: 09/24/2023 Health Maintenance Due Date Last Done Comments [...] Name Priority Date/Time Associated Diagnosis Comments DERM IMAGE (SITE) Routine 09/24/2023 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
--- OUTSIDE RECORDS SUMMARY | 2024-03-20 18:20 | External Medical Summary | Summary of Care ---
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 [facility] Department: Specialist Specialty: Derm Reason for Referral: UVB light therapy Comments Pharmacist Medication Therapy Management: Minimum frequency patient should be seen in person for medication management: as appropriate per clinical condition and patient status By my signature, I understand that my patient Kali Nunes will have his medication therapy managed by the [facility] Medication Therapy Disease Management [facility] ([facility]) per established policies, procedures, and protocols. I also certify that this referral may serve as an initiation of service for the management of drug therapy in the above noted patient. [facility] providers will be responsible for scheduling patient visits, obtaining appropriate laboratory studies, and adjusting medication management therapy per patient's need, in addition to those roles spelled out in the clinic policy, procedures, and drug management protocols. I understand that the service provided by the [facility] is voluntary and have informed patient that they can refuse the service at their discretion. I am aware that the [facility] will provide me with a copy of the patient encounter via my [employer]. I authorize the [facility] to carry out these activities on my behalf. I consider this program to be a necessary part of the patient's medical care. Reason for Visit * Reason Onset Date Comments Pre Authorization Request 09/24/2023 Encounter Details Date Type Department Care Team (Late st Contact Info) Description 09/24/2023 Telephone Dermat[address] [place] [address] Kenzie Martinez PA-C [address] [place] [address] [place] [phone] Pre Authorization Request Allergies Active Allergy Reactions Criticality Noted Date Comments Amoxicillin-Pot Clavulanate 09/21/20 22 vomiting Cefdinir Diarrhea 11/11/2018 Other Allergy (See Comments) Rash 07/24/2023 2+ Bacitracin - patch testing 07/24/23 documented as of this encounter (statuses as of 09/25/2023) Medications Medication Sig Dispensed Refills Start Date [...] persistent asthma without complication 0.63 mg NEBULIZER [id number] 08/21/2018 Acti ve Albuterol Sulfate (Proventil) (2.5 MG/3ML) 0.083% inhalation solution 2.5 mgIndications:Severe persistent asthma with acute exacerbation 2.5 mg NEBULIZER Q4H PRN 11/17/2021 Active Benralizumab (Fasenra) prefilled syringe 30 mgIndications:Severe persistent asthma without complication 30 mg SC [id number] 04/23/2023 03/23/2024 Acti ve documented as of this encounter (statuses as of 09/25/2023) Active Problems Problem Noted Date Diagnosed Date [...] as of this encounter (statuses as of 09/25/2023) Resolved Problems Problem Noted Date Diagnosed Date [...] as of this encounter (statuses as of 09/25/2023) Immunizations Name Administration Dates Next Due COVID-19 [...] as of this encounter Miscellaneous Notes * Addendum Note - Natty Ballesteros RPh - 09/25/2023 3:06 PM ESTAddended by: NATTY BALLESTEROS on: 09/25/2023 03:06 PM Modules accepted: Orders * Telephone Encounter - Natty Ballesteros RPh - 09/25/2023 3:05 PM EST Order submitted to [employer]. Order ID: [id number] . Will continue to follow. Natty Ballesteros [...] of Care: specialty medication - route to [id number]. Referral to pharmacist for: Pharmacist Co-management See corresponding visit note(s) for additional supporting clinical information. Office Information: Prescriber: Kenzie ROMO PA-C documented in this encounter Plan of Treatment Upcoming Encounters Date Type Department Care Team (Late st Contact Info) Description 10/25/2023 1:00 PM EST PulmDiagnostic Pulmonary Function Lab, [facility] [address] [place] [address] [address], [address] [facility] [place] [address] 11/02/2023 2:00 PM EST Nurse Only Pulmonary Medicine, [facility] [address] [facility] [place] [address] Gw, Nurse Pulmonary [address] [facility] [place] [address] 11/27/2023 1:00 PM EST Office Visit Sleep Disorders Ctr [facility] [address] [facility] [place] [phone] Leonor Kitchen CRNP [address] [facility] [place] [address] 12/19/2023 8:20 AM EST Office Visit Dermatology [address] [place] [address] Kenzie Martinez PA-C [address] [place] [address] [place] [phone] 03/06/2024 10:40 AM EDT Office Visit Family Medicine [address] [place] [phone] Megan Flores MD [address] [place] [address] [place] [phone] Scheduled Referrals Name Type Priority Associated Diagnoses Orde r Schedule PHARMACIST MEDS THERAPY MGMT REFERRAL OP Referral Within 10 days (routine) 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 agents Ordered: 09/25/2023 Health Maintenance Due Date Last Done Comments COLONOSCOPY-EVERY 3 YRS AGES 18-100 02/02/2020 02/01/2017, 02/01/2017, 11/23/2011 (Refused), Additional history exists Depression Screening 08/25/2021 08/25/2020 COVID-19 Vaccine (2022- season) 2023 02/01/2021, 01/06/2021 Influenza Vaccine (FLU [...] Primary documented in this encounter Care Teams Transporter Radiology Relationship Specialty Start Date End Date Erlin Banks MD [address] [place] [address] [place] [address] PCP - General 02/21/08 documented as of this encounter
--- OUTSIDE RECORDS SUMMARY | 2024-03-20 18:20 | External Medical Summary | Summary of Care ---
Author Name Unknown Organization [facility] Address [address] [facility] [place] [address] Phone [phone] Care Team Providers Care Stereoptician Name Role Phone Erlin Banks MD Primary Care Provider Reason for Visit * Reason Onset Date Comments Appointment 09/24/2023 Derm Encounter Details Date Type Department Care Team (Late st Contact Info) Description 09/24/2023 Telephone Dermatology [address] [place] [address] Kenzie Martinez PA-C [address] [place] [address] [place] [phone] Appointment (Derm) Allergies Active Allergy Reactions Criticality Noted Date [...] by mouth in the morning. 30 Tablet 04/26/2023 Active Simvastatin 20 MG Oral Tablet [...] persistent asthma without complication 0.63 mg NEBULIZER [id number] 08/21/2018 Acti ve Albuterol Sulfate (Proventil) (2.5 MG/3ML) 0.083% inhalation solution 2.5 mgIndications:Severe persistent asthma with acute exacerbation 2.5 mg NEBULIZER Q4H PRN 11/17/2021 Active Benralizumab (Fasenra) prefilled syringe 30 mgIndications:Severe persistent asthma without complication 30 mg SC [id number] 04/23/2023 03/23/2024 Acti ve documented as of [...] mRNA, LNP-s, No Pre serve, 2-Dose Series (IIIMOBI) 02/01/2021,01/06/2021 Pneumococcal Conjugate Vacc, 13 Valent (Prevnar) 01/15/2015 Pneumococcal Polysaccharide PPV23 (Pneumovax) SEASONAL INFLUENZA, PF, 6 M & Above, [...] encounter Miscellaneous Notes * Telephone Encounter - Paulette Conner OSA - 09/24/2023 1:46 PM EST Kali needs to return to [facility] in: Return 3 months for dermatitis f/u. documented in this encounter Plan of Treatment Upcoming Encounters Date Type Department Care Team (Late st Contact Info) Description 10/25/2023 1:00 PM EST PulmDiagnostic Pulmonary Function Lab, [facility] [address] [facility] [place] [address] [place], [address] [facility] [place] [address] 11/02/2023 2:00 PM EST Nurse Only Pulmonary Medicine, [facility] [address] [facility] [place] [address] , Nurse Pulmonary [address] [facility] [place] [address] 11/27/2023 1:00 PM EST Office Visit Sleep Disorders Ctr [facility] [address] [facility] [place] [phone] Leonor Kitchen CRNP [address] [place] [address] 03/06/2024 10:40 AM EDT Office Visit Family Medicine [address] [phone] Megan Flores MD [address] [place] [address] [place] [phone] Health Maintenance Due Date Last Done Comments [...] 01/15/2015, 07/02/2008, 08/18/2002 Zoster Vaccines Completed 03/24/2020, 0301/2020, 09/17/2013 GARDASIL-HPV IMMUNIZATION SERIES Aged Out No [...] filedocumented as of this encounter Care Teams Stereoptician Relationship Specialty Start Date End Date Erlin Banks MD [address] [place] [address] [place] [address] PCP - General 02/21/08 documented as of this encounter
--- OUTSIDE RECORDS SUMMARY | 2024-03-20 18:20 | External Medical Summary | Summary of Care ---
Author Name Unknown Organization [facility] Address [address] [facility] [place] [address] Phone [phone] Care Team Providers Care Computer Network Support Specialist Name Role Phone Sherice Euceda MD Primary Care Provider [phone] Reason for Visit * Reason Comments Follow Up Pt here for 2 month f/u for dermatitis. Pt states that dermatitis is about the same as always, very itchy. Encounter Details Date Type Department Care Team (Late st Contact Info) Description 09/24/2023 1:20 PM EST Office Visit Dermatology [address] [place] [address] Kenzie Martinez PA-C [address] [place] [address] [place] [phone] 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 agents* [...] persistent asthma without complication 0.63 mg NEBULIZER [id number] 08/21/2018 Acti ve Albuterol Sulfate (Proventil) (2.5 MG/3ML) 0.083% inhalation solution 2.5 mgIndications:Severe persistent asthma with acute exacerbation 2.5 mg NEBULIZER Q4H PRN 11/17/2021 Active Benralizumab (Fasenra) prefilled syringe 30 mgIndications:Severe persistent asthma without complication 30 mg SC [id number] 04/23/2023 03/23/2024 Acti ve documented as of [...] documented in this encounter Progress Notes * Natty Ballesteros RPh - 09/25/2023 2:57 PM EST Physician Approval/Patient Light Therapy Order Form: Dermalume 2x - scalp/spot treatment Skin Type: III; Darker white skin. Tans after initial burn PHYSICIAN APPROVAL Kenzie Martinez PA-C authorizes their patient Kali Nunes, to purchase the product(s) marked above. This patient has been instructed to consult the clinic on a regular basis for follow-up exams and is aware of the treatment procedures with this/these product(s). The map plotter will supply a manual for each unit and/or meter purchased. [facility] code and Diagnosis Code: ICD-10-CM 1. Contact dermatitis - Allergic contact dermatitis, unspecific cause L23.9 Procedure Code: 05046 Letter of Medical Necessity 09/25/2023 Kali Nunes has been under Kenzie Martinez PA-C for contact dermatitis over most of Trunk and Upper extremities . The patient has a history of frequent flaring which requires immediate treatment to control the disease. Numerous medications have been tried including: triamcinolone,clobetasol, betamethasone, ketoconazole, cetirizine, benadryl. The patient cannot be treated with ultraviolet lights in the clinic due to distance from the clinic. As contact dermatitis is usually a life-long condition which requires long-term maintenance to prevent future flare-ups, my patient will most likely require UV light treatment for indefinite use withan on-going maintenance schedule. Treatment frequency of 3 times per week is required with likely moderation during the summer months. An FDA approved home-based UV light device would be effective for the patient's condition. The results of home UV light treatment compares to a single 12-week course of biologic therapy, which will be the alternative treatment if home UV light is not a viable option. Delaying biologic use for 3 months with home phototherapy is significantly more cost-effective than initiating biologics. Therefore, recommending a National Biological Dermalume 2x - scalp/spot treatment with Narrowband UVB lamps due to its ease of use, effectiveness and relative safety derived from the device's controlof maximum exposure time coupled with its physician controlled timer where the patient can be guided through periodic visits in our dermatology office. This patient is capable of operating the ultraviolet light box and staying within prescribed exposure times and will be provided education on how to utilize their light box. Sincerely, Kenzie Martinez PA-C Kenzie Martinez PA-C Supervising Physician: Dr. Alex Spence * Alex Spence MD - 09/24/2023 2:03 PM EST I have seen and examined via teledermatology review of chart note and photos the patient with Kenzie Martinez PA-C. I have reviewed and agree with the assessment and plan. 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 Images of today visit upper back sig secondary changes. Uncertain if labs done outside of [facility]? 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 ACD (2+ Bacitracin) and chronic dermatitis on back/R posterior upper arm, flared since last office visit-Pt to continue with clobetasol 0.05% ointment BID to rash flaring (only using when itchy, about QOD). -Side effects of each medication discussed and treatment regimen written and printed on checkout sheet. -Printed entire [place] [employer] product list for patient at last office visit, explained to patient the need to make sure all products at home are on the list. 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 Wakefield in [facility]. Patient alone today. Photo(s) of #1-2 taken, pt verbally consented to having photo(s) taken. Follow-up: 3 months for chronic dermatitis/ACD Applicable photos (if any) and chart reviewed by Dr. Alex Spence. Presumed diagnoses, expected natural histories, and [...] Kenzie Martinez PA-C 09/24/2023 1:21 PM Ref: SELF[[id number]] NO STREET ADDRESS AVAILABLE None (office) None (fax) PCP: SHERICE EUCEDA [address] [place] [address] [place] [address] documented in this encounter Nursing Notes * [...] 1:00 PM EST PulmDiagnostic Pulmonary Function Lab, [facility] [address] [facility] [place] [address] West, Pft 132 [facility] [place] [address] 11/02/2023 2:00 PM EST Nurse Only Pulmonary Medicine, [facility] [address] [facility] [place] [address] Gw, Nurse Pulmonary 132 [facility] [place] [address] 11/27/2023 1:00 PM EST Office Visit Sleep Disorders Ctr [facility] 132 [facility] [place] [phone] Leonor Kitchen, HELIO 132 [facility] [place] [address] 12/19/2023 8:20 AM EST Office Visit Dermatology [address] [place] [address] Kenzie Martinez PA-C [address] [place] [address] [place] [address] 03/06/2024 10:40 AM EDT Office Visit Family Medicine [address] [place] [phone] Megan Flores MD [address] [place] [address] [place] [address] Scheduled Orders Name Type Priority Associated Diagnoses [...] Primary documented in this encounter Care Teams Computer Network Support Specialist Relationship Specialty Start Date End Date Sherice Euceda MD [address] [place] [address] [place] [address] PCP - General 02/21/08 documented as of this encounter
--- OUTSIDE RECORDS SUMMARY | 2024-03-20 18:20 | External Medical Summary | Summary of Care ---
Author Name Unknown Organization [facility] Address [address] [place] [address] Phone [phone] Care Team Providers Care Incident Response Analyst Name Role Phone Erlin Banks MD Primary Care Provider [phone] Reason for Referral * Evaluate & Treat - Unlimited Visits (Within 10 days (routine)) - Authorized Specialty Diagnoses / Procedures Referred By Steve waters Referred To Contact Pharmacist / Pharmacy Diagnoses 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 agents Kenzie Martinez PA-C [address] [place] [address] Referral ID Status Reason Start Date Expiration Date Visits Requested Visits Authorized [id number] Authorized Specialty Services Required 3 99 99 Question Answer Referral Priority Within 10 days (routine) Where should this appointment be scheduled? [facility] Department: Specialist Specialty: Derm Reason for Referral: UVB light therapy Comments Pharmacist Medication Therapy Management: Minimum frequency patient should be seen in person for medication management: as appropriate per clinical condition and patient status By my signature, I understand that my patient Kali Nunes will have his medication therapy managed by the [facility] Medication Therapy Disease Management Clinic ([facility]) per established policies, procedures, and protocols. I also certify that this referral may serve as an initiation of service for the management of drug therapy in the above noted patient. [facility] providers will be responsible for scheduling patient visits, obtaining appropriate laboratory studies, and adjusting medication management therapy per patient's need, in addition to those roles spelled out in the clinic policy, procedures, and drug management protocols. I understand that the service provided by the [facility] Clinic is voluntary and have informed patient that they can refuse the service at their discretion. I am aware that the [facility] will provide me with a copy of the patient encounter via my [employer]. I authorize the [facility] Clinic to carry out these activities on my behalf. I consider this program to be a necessary part of the patient's medical care. Reason for Visit * Reason Onset Date Comments Pre Authorization Request 09/24/2023 Encounter Details Date Type Department Care Team (Late st Contact Info) Description 09/24/2023 Telephone Dermat[address] [place] [address] Kenzie Martinez PA-C [address] [place] [address] [place] [phone] Pre Authorization Request Allergies Active Allergy Reactions [...] persistent asthma without complication 0.63 mg NEBULIZER [id number] 08/21/2018 Acti ve Albuterol Sulfate (Proventil) (2.5 MG/3ML) 0.083% inhalation solution 2.5 mgIndications:Severe persistent asthma with acute exacerbation 2.5 mg NEBULIZER Q4H PRN 11/17/2021 Active Benralizumab (Fasenra) prefilled syringe 30 mgIndications:Severe persistent asthma without complication 30 mg SC [id number] 04/23/2023 03/23/2024 Acti ve documented as of [...] 09/25/2023 3:05 PM EST Order submitted to [employer]. Order ID: [id number] . Will continue to follow. Natty Ballesteros, PharmD Medication Therapy Disease Management Dermatology Clinical [...] of Care: specialty medication - route to [id number]. Referral to pharmacist for: Pharmacist Co-management See corresponding visit note(s) for additional supporting clinical information. Office Information: Prescriber: Kenzie ROMO PA-C documented in this encounter Plan of Treatment Upcoming Encounters Date Type Department Care Team (Late st Contact Info) Description 10/25/2023 1:00 PM EST PulmDiagnostic Pulmonary Function Lab, [facility] [address] [facility] [place] [address] West, Pft 132 [facility] [place] [address] 11/02/2023 2:00 PM EST Nurse Only Pulmonary Medicine, [facility] [address] [facility] [place] [address] Gw, Nurse Pulmonary [address] [facility] [place] [address] 11/27/2023 1:00 PM EST Office Visit Sleep Disorders Ctr [facility] [address] [facility] [place] [phone] Leonor Kitchen CRNP 132 [facility] [place] [address] 12/19/2023 8:20 AM EST Office Visit Dermatology [address] [place] [address] Kenzie Martinez PA-C [address] [place] [address] [place] [address] 03/06/2024 10:40 AM EDT Office Visit Family Medicine [address] [place] [phone] Megan Flores MD [address] [place] [address] [place] [address] Scheduled Referrals Name Type Priority Associated Diagnoses [...] Primary documented in this encounter Care Teams Incident Response Analyst Relationship Specialty Start Date End Date Erlin Banks MD [address] [place] [address] [place] [address] PCP - General 02/21/08 documented as of this encounter
--- OUTSIDE RECORDS SUMMARY | 2024-03-20 18:20 | External Medical Summary | Summary of Care ---
Author Name Unknown Organization [facility] Address [address] [facility] [place] [address] Phone [phone] Care Team Providers Care Felt Finisher Name Role Phone Erlin Banks MD Primary Care Provider [phone] Reason for Visit * Reason Onset Date Comments Appointment 09/24/2023 Derm Encounter Details Date Type Department Care Team (Late st Contact Info) Description 09/24/2023 Telephone Dermatology [address] [place] [address] Kenzie Martinez PA-C [address] [place] [address] [place] [address] Appointment (Derm) Allergies Active Allergy Reactions Criticality [...] persistent asthma without complication 0.63 mg NEBULIZER [id number] 08/21/2018 Acti ve Albuterol Sulfate (Proventil) (2.5 MG/3ML) 0.083% inhalation solution 2.5 mgIndications:Severe persistent asthma with acute exacerbation 2.5 mg NEBULIZER Q4H PRN 11/17/2021 Active Benralizumab (Fasenra) prefilled syringe 30 mgIndications:Severe persistent asthma without complication 30 mg SC [id number] 04/23/2023 03/23/2024 Acti ve documented as of [...] mRNA, LNP-s, No Pre serve, 2-Dose Series (CRV) 02/01/2021,01/06/2021 Pneumococcal Conjugate Vacc, 13 Valent (Prevnar) [...] encounter Miscellaneous Notes * Telephone Encounter - Nenita Marie LPN - 09/25/2023 9:07 AM EST Scheduled. * Telephone Encounter - Paulette Conner OSA - 09/24/2023 1:46 PM EST Kali needs to return to [facility] in: Return 3 months for dermatitis f/u. documented in this encounter Plan of Treatment Upcoming Encounters Date Type Department Care Team (Late st Contact Info) Description 10/25/2023 1:00 PM EST PulmDiagnostic Pulmonary Function Lab, [facility] 132 [facility] [place] [address] West, Pft 132 [facility] [place] [address] 11/02/2023 2:00 PM EST Nurse Only Pulmonary Medicine, [facility] 132 [facility] [place] [address] , Nurse Pulmonary [address] [place] [address] 11/27/2023 1:00 PM EST Office Visit Sleep Disorders Ctr [facility] [address] [facility] [place] [phone] Leonor Kitchen CRNP [address] [place] [address] 12/19/2023 8:20 AM EST Office Visit Dermatology [address] [place] [address] Kenzie Martinez PA-C [address] [place] [address] [place] [address] 03/06/2024 10:40 AM EDT Office Visit Family Medicine [address] [place] [phone] Megan Flores MD [address] [place] [address] [place] [address] Health Maintenance Due Date Last Done Comments [...] filedocumented as of this encounter Care Teams Felt Finisher Relationship Specialty Start Date End Date Erlin Banks MD [address] [place] [address] [place] [phone] PCP - General 02/21/08 documented as of this encounter
--- OUTSIDE RECORDS SUMMARY | 2024-03-20 18:20 | External Medical Summary | Summary of Care ---
Author Name Unknown Organization [facility] Address [address] [facility] [place] [address] Phone [phone] Care Team Providers Care Steamer Blocker Name Role Phone Erlin Euceda MD Primary Care Provider [phone] Reason for Visit * Reason Comments Follow Up Pt here for 2 month f/u for dermatitis. Pt states that dermatitis is about the same as always, very itchy. Encounter Details Date Type Department Care Team (Late st Contact Info) Description 09/24/2023 1:20 PM EST Office Visit Dermatology [address] [place] [address] Kenzie Martinez PA-C [address] [place] [address] [place] [address] 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 agents* [...] persistent asthma without complication 0.63 mg NEBULIZER [id number] 08/21/2018 Acti ve Albuterol Sulfate (Proventil) (2.5 MG/3ML) 0.083% inhalation solution 2.5 mgIndications:Severe persistent asthma with acute exacerbation 2.5 mg NEBULIZER Q4H PRN 11/17/2021 Active Benralizumab (Fasenra) prefilled syringe 30 mgIndications:Severe persistent asthma without complication 30 mg SC [id number] 04/23/2023 03/23/2024 Acti ve documented as of [...] y ago of "dermatitis" and seen at [facility]; again a few years ago with ?pruritus>dermatitis; 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 Images of today visit upper back sig secondary changes. Uncertain if labs done outside of [facility]? 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 ACD (2+ Bacitracin) and chronic dermatitis on back/R posterior upper arm, flared since last office visit-Pt to continue with clobetasol 0.05% ointment BID to rash flaring (only using when itchy, about QOD). -Side effects of each medication discussed and treatment regimen written and printed on checkout sheet. -Printed entire [place] [employer] product list for patient at last office visit, explained to patient the need to make sure all products at home are on the list. 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 Wakefield in [facility]. Patient alone today. Photo(s) of #1-2 taken, [...] Kenzie Martinez PA-C 09/24/2023 1:21 PM Ref: SELF[[id number]] NO STREET ADDRESS AVAILABLE None (office) None (fax) PCP: ERLIN EUCEDA [address] [place] [address] [place] [address] [phone] documented in this encounter Nursing Notes * [...] 1:00 PM EST PulmDiagnostic Pulmonary Function Lab, [facility] 132 [facility] [place] [address] [place], [address]ft [address] [place] [address] 11/02/2023 2:00 PM EST Nurse Only Pulmonary Medicine, [facility] 132 [facility] [place] [address] Gw, Nurse Pulmonary 132 [facility] [place] [address] 11/27/2023 1:00 PM EST Office Visit Sleep Disorders Ctr [facility] 132 [facility] [place] [phone] Leonor Kitchen CRNP 132 [facility] [place] [address] 03/06/2024 10:40 AM EDT Office Visit Family Medicine [address] [place] [phone] Megan Flores MD [address] [place] [address] [place] [address] Scheduled Orders Name Type Priority Associated Diagnoses [...] Primary documented in this encounter Care Teams Steamer Blocker Relationship Specialty Start Date End Date Erlin Euceda MD [address] [place] [address] [place] [phone] PCP - General 02/21/08 documented as of this encounter
--- OUTSIDE RECORDS SUMMARY | 2024-03-20 18:20 | External Medical Summary | Summary of Care ---
Author Name Unknown Organization [facility] Address [address] [facility] [place] [address] Phone [phone] Care Team Providers Care Director Occupational Name Role Phone Erlin Banks MD Primary Care Provider Reason for Visit * Reason Onset Date Comments Information 09/26/2023 Encounter Details Date Type Department Care Team (Late st Contact Info) Description 09/26/2023 Telephone Derm[address] [place] [address] Kenzie Martinez PA-C [address] [place] [address] [place] [address] Information Allergies Active Allergy Reactions Criticality Noted Date Comments Amoxicillin-Pot Clavulanate 09/21/20 22 vomiting Cefdinir Diarrhea 11/11/2018 Other Allergy (See Comments) Rash 07/24/2023 2+ Bacitracin - patch testing 07/24/23 documented as of this encounter (statuses as of 09/26/2023) Medications Medication Sig Dispensed Refills Start Date [...] persistent asthma without complication 0.63 mg NEBULIZER [id number] 08/21/2018 Acti ve Albuterol Sulfate (Proventil) (2.5 MG/3ML) 0.083% inhalation solution 2.5 mgIndications:Severe persistent asthma with acute exacerbation 2.5 mg NEBULIZER Q4H PRN 11/17/2021 Active Benralizumab (Fasenra) prefilled syringe 30 mgIndications:Severe persistent asthma without complication 30 mg SC [id number] 04/23/2023 03/23/2024 Acti ve documented as of this encounter (statuses as of 09/26/2023) Active Problems Problem Noted Date Diagnosed Date [...] as of this encounter (statuses as of 09/26/2023) Resolved Problems Problem Noted Date Diagnosed Date [...] as of this encounter (statuses as of 09/26/2023) Immunizations Name Administration Dates Next Due COVID-19 mRNA, LNP-s, No Pre serve, 2-Dose Series ([employer]) 02/01/2021,01/06/2021 Pneumococcal Conjugate Vacc, 13 Valent (Prevnar) [...] Telephone Encounter - Kenzie Martinez PA-C - 09/26/2023 10:01 AM EST Please call patient and let him know that since his itch and rash has been persistent, I would likefor him to get a few labs drawn and a chest xray completed in the upcoming week or so. The orders are futured in the chart. Kenzie ROMO PA-C documented in this encounter Plan of Treatment Upcoming Encounters Date Type Department Care Team (Late st Contact Info) Description 10/25/2023 1:00 PM EST PulmDiagnostic Pulmonary Function Lab, [facility] [address] [place] [address] West, [address] [place] [address] 11/02/2023 2:00 PM EST Nurse Only Pulmonary Medicine, [facility] [address] [place] [address] Gw, Nurse Pulmonary 132 [place] [address] 11/27/2023 1:00 PM EST Office Visit Sleep Disorders Ctr [facility] 132 [facility] [place] [phone] Leonor Kitchen CRNP [address] [place] [address] 12/19/2023 8:20 AM EST Office Visit Dermatology [address] [place] [address] Kenzie Martinez PA-C [address] [place] [address] [place] [address] 03/06/2024 10:40 AM EDT Office Visit Family Medicine [address] [place] [phone] Megan Flores MD [address] [place] [address] [place] [phone] Scheduled Orders Name Type Priority Associated Diagnoses Orde r Schedule CBC WITH WBC DIFFERENTIAL Lab Routine Pruritus Expected: 09/27/2023 (Approximate), Expires: 09/26/2024 TSH WITH FREE T4 IF INDICATED Lab Routine Pruritus Expected: 09/27/2023 (Approximate), Expires: 09/26/2024 XR CHEST 2 VIEWS Medical Imaging Routine Pruritus Expected: 09/27/2023 (Approximate), Expires: 10/27/2024 Health Maintenance Due Date Last Done Comments [...] as of this encounter Visit Diagnoses Diagnosis Pruritus- Primary Unspecified pruritic disorder documented in this encounter Care Teams Director Occupational Relationship Specialty Start Date End Date Erlin Banks MD [address] [place] [address] [place] [address] PCP - General 02/21/08 documented as of this encounter
--- OUTSIDE RECORDS SUMMARY | 2024-03-20 18:20 | External Medical Summary | Summary of Care ---
Author Name Unknown Organization [facility] Address [address] [facility] [place] [address] Phone [phone] Care Team Providers Care Multi Site Leasing Consultant Name Role Phone Erlin Banks MD Primary Care Provider [phone] Reason for Visit * Reason Onset Date Comments Pre Authorization Request 09/24/2023 Encounter Details Date Type Department Care Team (Late st Contact Info) Description 09/24/2023 Telephone [address]erm[address] [place] [phone] Kenzie Martinez PA-C [address] [place] [address] [place] [address] Pre Authorization Request Allergies Active Allergy Reactions [...] MOUTH EVERY DAY 60 Blister Dosing Unit 04/19/2023 Active Triamcinolone Acetonide 0.1 % External [...] persistent asthma without complication 0.63 mg NEBULIZER [id number] 08/21/2018 Acti ve Albuterol Sulfate (Proventil) (2.5 MG/3ML) 0.083% inhalation solution 2.5 mgIndications:Severe persistent asthma with acute exacerbation 2.5 mg NEBULIZER Q4H PRN 11/17/2021 Active Benralizumab (Fasenra) prefilled syringe 30 mgIndications:Severe persistent asthma without complication 30 mg SC [id number] 04/23/2023 03/23/2024 Acti ve documented as of [...] mRNA, LNP-s, No Pre serve, 2-Dose Series (Grid20/20) 02/01/2021,01/06/2021 Pneumococcal Conjugate Vacc, 13 Valent (Prevnar) [...] of Care: specialty medication - route to [id number]. Referral to pharmacist for: Pharmacist Co-management See corresponding visit note(s) for additional supporting clinical information. Office Information: Prescriber: Kenzie ROMO PA-C documented in this encounter Plan of Treatment Upcoming Encounters Date Type Department Care Team (Late st Contact Info) Description 10/25/2023 1:00 PM EST PulmDiagnostic Pulmonary Function Lab, [facility] [address] [facility] [place] [address] [place], [address] [place] [address] 11/02/2023 2:00 PM EST Nurse Only Pulmonary Medicine, [facility] [address] [facility] [place] [address] Gw, Nurse Pulmonary [address] [facility] [place] [address] 11/27/2023 1:00 PM EST Office Visit Sleep Disorders Ctr [facility] [address] [place] [phone] Leonor Kitchen CRNP [address] [place] [address] 03/06/2024 10:40 AM EDT Office Visit Family Medicine [address] [place] [phone] Megan Flores MD [address] [place] [address] [place] [phone] Health Maintenance Due Date Last Done Comments [...] filedocumented as of this encounter Care Teams Multi Site Leasing Consultant Relationship Specialty Start Date End Date Erlin Banks MD [address] [place] [address] [place] [address] PCP - General 02/21/08 documented as of this encounter
--- OUTSIDE RECORDS SUMMARY | 2024-03-20 18:20 | External Medical Summary | Summary of Care ---
Author Name Unknown Organization [facility] Address [address] [place] [address] Phone [phone] Care Team Providers Care Cook Apprentice Name Role Phone Erlin Banks MD Primary Care Provider [phone] Reason for Visit * Reason Comments Dosage Adjustment Via Phone (anticoag Cl inic) Encounter Details Date Type Department Care Team (Late st Contact Info) Description 09/25/2023 6:00 PM EST Telemedicine Pulmonary Medicine, [facility] [address] [place], [place] [phone] [place], Pharmacist Pulmonary [address] [place], [place] [phone] Severe persistent asthma without complication*; Severe persistent asthma with acute exacerbation Allergies [...] 8 weeks. 1 mL 0 09/25/2023 Active Fasenra 30 MG/ML Subcutaneous Solution Prefilled Syringe (Benralizumab)Oksana cations:Severe persistent asthma with acute exacerbation Inject 1 mL under the skin every 8 weeks. 1 mL 3 04/19/2023 3 Discontinue d(Refill) Hospital, Clinic, or Other Facility Administered Medication Ordered Dose Route Frequency Start Date End Date Status Albuterol Sulfate (ACCUNEB) nebulizer solution 0.63 mgIndications:Moderate persistent asthma without complication 0.63 mg NEBULIZER SUAIR1E 08/21/2018 Acti ve Albuterol Sulfate (Proventil) (2.5 MG/3ML) 0.083% inhalation solution 2.5 mgIndications:Severe persistent asthma with acute exacerbation 2.5 mg NEBULIZER Q4H PRN 11/17/2021 Active Benralizumab (Fasenra) prefilled syringe 30 mgIndications:Severe persistent asthma without complication 30 mg SC [id number] 04/23/2023 03/23/2024 Acti ve documented as of [...] mRNA, LNP-s, No Pre serve, 2-Dose Series ([employer]) 02/01/2021,01/06/2021 Pneumococcal Conjugate Vacc, 13 Valent (Prevnar) [...] on file documented as of this encounter Progress Notes * Jazmín Thomas, [facility] - 09/25/2023 5:59 PM EST Medication Therapy Disease Management - Asthma Biologics Follow-Up Assessment After connecting to the patient via telephone, the patient was identified by name and date of . Patient was then informed that this was a telephone call only visit. The patient agreed to participate. Visit Disposition: Routine follow-up Total call duration was 5 minutes. Interval History: Kali Nunes is an 78 year old old male with severe persistent asthma who returns to the Medication Therapy Disease Management Clinic for follow-up. Current Asthma Medications: Controller(s): Breo 200-25 mcg/act, Quick-relief: duoneb, albuterol HFA Biologic History: Drug: Benralizumab (Fasenra) 30mg/ml Pen - 30mg every 4 weeks x 3 doses, then once every 8 weeks . Start Date: 01/2020 Biologic Tolerability: Medication intolerance: no Symptom History Since Last MTDM Review: Symptoms are improved. Exacerbation(s) requiring oral corticosteroids in the past 12 months (or since biologic start): no Exacerbation(s) requiring ER utilization or hospitalization in the past 12 months (or since biologic start): no Previously identified asthma triggers: exertion, URI, allergy, SPRING worse Asthma Control Test (ACT): Asthma Control Test (ACT) Results 11/24/2022 10:21 Asthma Control Test In the past 4 weeks, how much of the time did your asthma keep you from getting as much done at work, school or at home? (5) None of the time During the past 4 weeks, how often have you had shortness of breath? (5) Not at all During the past 4 weeks, how often did your asthma symptoms (wheezing, coughing, shortness of breath, chest tightness or pain) wake you up at night or earlier than usual in the morning? (5) Not at all During the past 4 weeks, how often have you used your rescue inhaler or nebulizer medication (such as albuterol)? (2) 1 or 2 times per day How would you rate your asthma control during the past 4 weeks? (4) Well controlled Total ACT Adult Score 21 Total ACT Child Score Incomplete Assessment & Plan: Asthma Medication Recommendations: Based on the information above is appropriate to continue biologic therapy. 2. Administration plan: - Patient will continue in-clinic biologic administration 3. Continue the following Asthma Regimen: Controller(s): Breo 200-25 mcg/act, Quick-relief: duoneb, albuterol HFA 4. Follow up: Next follow up appointment with pharmacist will be scheduled for: PRN Return to clinic: No follow up scheduled. Next inj scheduled for 11/02/23 Jazmín Thomas RPh Clinical Pharmacist Medication Therapy Disease Management 09/25/2023, 5:59 PM documented in this encounter Plan of Treatment Upcoming Encounters Date Type Department Care Team (Late st Contact Info) Description 10/25/2023 1:00 PM EST PulmDiagnostic Pulmonary Function Lab, [facility] [address] [place] [address] [place], [address] [place] [address] 11/02/2023 2:00 PM EST Nurse Only Pulmonary Medicine, [facility] [address] [place] [address] , Nurse Pulmonary [address] [place] [address] 11/27/2023 1:00 PM EST Office Visit Sleep Disorders Ctr [facility] [address] [place] [phone] Leonor Kitchen CRNP [address] [place] [address] 12/19/2023 8:20 AM EST Office Visit Dermatology [address] [place] [phone] Kenzie Martinez PA-C [address] [place] [address] [place] [address] 03/06/2024 10:40 AM EDT Office Visit Family Medicine [address] [place] [phone] Megan Flores MD [address] [place] [address] [place] [address] Health Maintenance Due Date Last Done Comments [...] Diagnosis Severe persistent asthma without complication- Primary Severe persistent asthma with acute exacerbation Unspecified asthma, with exacerbation documented in this encounter Care Teams Cook Apprentice Relationship Specialty Start Date End Date Erlin Banks MD [address] [place] [address] [place] [phone] PCP - General 02/21/08 documented as of this encounter
--- OUTSIDE RECORDS SUMMARY | 2024-03-20 18:21 | External Medical Summary | Summary of Care ---
Author Name Unknown Organization [facility] Address [address] [facility] [place] [address] Phone [phone] Care Team Providers Care Abe Teacher Name Role Phone Erlin Euceda MD Primary Care Provider [phone] Reason for Visit * Reason Comments Follow Up Pt here for 2 month f/u for dermatitis. Pt states that dermatitis is about the same as always, very itchy. Encounter Details Date Type Department Care Team (Late st Contact Info) Description 09/24/2023 1:20 PM EST Office Visit Dermatology [address] [place] [address] Kenzie Martinez PA-C [address] [place] [address] [place] [phone] 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 agents* [...] persistent asthma without complication 0.63 mg NEBULIZER [id number] 08/21/2018 Acti ve Albuterol Sulfate (Proventil) (2.5 MG/3ML) 0.083% inhalation solution 2.5 mgIndications:Severe persistent asthma with acute exacerbation 2.5 mg NEBULIZER Q4H PRN 11/17/2021 Active Benralizumab (Fasenra) prefilled syringe 30 mgIndications:Severe persistent asthma without complication 30 mg SC [id number] 04/23/2023 03/23/2024 Acti ve documented as of [...] Progress Notes * Kenzie Martinez PA-C - 09/24/2023 1:21 PM EST SUBJECTIVE: History of Present Illness: Kali Nunes is a 78 year old male seen today for follow up of chronic dermatitis. Previous office visit: 07/24/2023 Last attempted treatments include: final patch test read (2+ bacitracin) Hx of dermatitis (seen in [facility] office since 2010, treated hands with [...] NONE Reviewed, same day as visit, 0 [facility] Dermatology lab work(s)/pathology report(s) as well as [...] There is noevidence of a folliculitis or Amawalk disease after extensive sectioning of the submitted specimen. ACD (2+ Bacitracin) and chronic dermatitis on back/R posterior upper arm, flared since last office visit-Pt to continue with clobetasol 0.05% ointment BID to rash flaring (only using when itchy, about QOD). -Side effects of each medication discussed and treatment regimen written and printed on checkout sheet. -Printed entire [employer] ACDS product list for patient at last office visit, explained to patient the need to make sure all products at home are on the list. 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 Wakefield in [facility]. Patient alone today. Photo(s) of #1-2 taken, [...] Kenzie Martinez PA-C 09/24/2023 1:21 PM Ref: SELF[[id number]] NO STREET ADDRESS AVAILABLE None (office) None (fax) PCP: ERLIN EUCEDA [address] [place] [address] [place] [phone] documented in this encounter [...] 1:00 PM EST PulmDiagnostic Pulmonary Function Lab, [facility] [address] [facility] [place] [address] [place], [address] [facility] [place] [address] 11/02/2023 2:00 PM EST Nurse Only Pulmonary Medicine, [facility] [address] [facility] [place] [address] , Nurse Pulmonary [address] [facility] [place] [address] 11/27/2023 1:00 PM EST Office Visit Sleep Disorders Ctr [facility] [address] [facility] [place] [phone] Leonor Kitchen CRNP [address] [place] [address] 03/06/2024 10:40 AM EDT Office Visit Family Medicine [address] [place] [phone] Megan Folres MD [address] [place] [address] [place] [phone] Scheduled Orders Name Type Priority Associated Diagnoses [...] 01/15/2015, 07/02/2008, 08/18/2002 Zoster Vaccines Completed 03/24/2020, 03/01/2020, 09/17/2013 GARDASIL-HPV IMMUNIZATION SERIES Aged Out No [...] Primary documented in this encounter Care Teams Abe Teacher Relationship Specialty Start Date End Date Erlin Euceda MD [address] [place] [address] [place] [address] PCP - General 02/21/08 documented as of this encounter
[2024-03-20] MEDS ORDERED: SIMVASTATIN 20 MG TAB PO SCH (21:00)
[2024-03-21 06:52] LABS: Basophils # (auto) 0.02 K/uL (0.00-0.20); Basophils % (auto) 0.2 %; Hematocrit (blood only) 33.6 % (42.0-52.0); Hemoglobin 11.1 g/dl (14.0-18.0); Immature Granulocytes # (auto) 0.07 K/uL (0.01-0.20); Immature Granulocytes % (auto) 0.7 %; Lymphocytes # (auto) 0.82 K/uL (1.20-3.40); Lymphocytes % (auto) 7.8 %; Mean Corpuscular Hemoglobin 30.5 pg (25.0-34.0); Mean Corpuscular Volume 92.3 fL (80.0-100.0); Mean Platelet Volume 11.6 fL (9.4-12.4); Monocytes # (auto) 1.28 K/uL (0.11-0.59); Monocytes % (auto) 12.1 %; Neutrophils # (auto) 8.38 K/uL (1.40-6.50); Neutrophils % (auto) 79.2 %; Platelet Count 162 K/uL (130-400); RDW Coefficient of Variation 13.4 % (11.5-14.5); RDW Standard Deviation 45.7 fL (36.4-46.3); Red Blood Count 3.64 M/uL (4.70-6.10); White Blood Count 10.57 K/ul (4.8-10.8)
[2024-03-21 07:06] LABS: BUN Creatinine Ratio 14.3 (10-20); Calcium 7.6 mg/dl (8.6-10.3); Creatinine Clr Calc Pharmacy 82.7 ml/min; Est GFR (African American) 77.3 ml/min; Est GFR (Non-African American) 66.7 ml/min; Potassium 4.1 mmol/L (3.5-5.1)
[2024-03-21] MEDS: ACETAMINOPHEN 325 MG TAB PO PRN (07:37)
[2024-03-21] MEDS: POLYETHYLENE (MIRALAX) 17 GM PACK PO SCH (10:26)
--- NOTE | 2024-03-21 15:43 | Hospitalist Progress Note ---
Date of Service March 21, 2024 Assessment & Plan (1) Accident caused by farm tractor: Plan: Try to stop before tractor from the ground Got run over by the tractor with multiple injuries including Pelvic fracture as below Appreciate Ortho input and recommendation Conservative management Weightbearing as tolerated PT OT evaluation-recommended rehab Pain is controlled with current medications Awaiting placement (2) Pelvic fracture: (3) Closed pelvic ring fracture: (4) Closed sacral fracture: (5) Fracture of transverse process of lumbar vertebra: Plan Other significant medical conditions as below and seems to be stable Traumatic rhabdomyolysis Monitor CPK response to IVF, hold statin for now Advised to drink more fluid Total CK remains below 1000 Will monitor-CK level has decreased to 609 Advised to drink more fluid Eosinophilic asthma, stable hyperlipidemia on statin Rx Hyperglycemia likely prediabetes, outpatient hemoglobin A1c of 5.8 from 2010 Incidental finding right lung nodule on CT imaging-will have follow-up as an outpatient No acute symptoms Check hemoglobin A1c-6.1 Outpatient follow-up imaging for SPN following Fleischner criteria DVT prophylaxis. SCDs Re: Traumatic bleeding wounds Full code Text document was generated using [employer] voice recognition software. It may contain grammatical or spelling errors. Kindly contact undersigned for clarification of any documentation item in question. Admission and Anticipated Discharge Date Admission Date: March 19, 2024 Subjective 03/20/2024 The patient was seen and examined in medical floor He has been stable in bed Pain in the pelvis with activity and physical therapy Denies any other significant symptoms 03/21/2024 The patient was seen and examined in medical floor He has been stable with minimal pain at rest Has been getting physical therapy and will need to go to rehab Review of Systems Review of Systems: All systems reviewed and are unremarkable except as noted below Physical Exam Physical Exam: Lying in bed without any acute distress Constitutional: well developed, well nourished, + ill appearing and + obese Eyes: PERRL, conjunctivae normal, anicteric sclerae ENMT: external ear and nose normal, oropharynx normal Neck: trachea midline, no thyromegaly Respiratory: no respiratory distress Auscultation: lungs clear to auscultation bilaterally Cardiovascular: Rate/Rhythm: regular rate and regular rhythm; not tachycardic Heart Sounds: normal S1 and normal S2; no murmur Extremities: no edema Gastrointestinal (Abdomen): Inspection/Auscultation: normal bowel sounds; abdomen not distended Percussion/Palpation: abdomen soft; abdomen nontender Musculoskeletal: Movement of the left lower extremity causes pain in the pelvis Neurologic: normal touch/pain/proprioception and moves all extremities; no focal motor deficits Psychiatric: A+Ox3, euthymic affect Lymphatic: no cervical or axillary lymphadenopathy Results & Data Results & Data Vital Signs (Past 12 Hours) Vital Signs Temp Pulse Resp BP Pulse Ox O2 Del Method 03/21/24 08:00 Room Air 03/21/24 06:59 36.5 C 71 16 122/67 96 Room Air Laboratory Results Short CBC 03/21/24 Range/Units 05:42 WBC 10.57 (4.8-10.8) K/ul Hgb 11.1 L (14.0-18.0) g/dl Hct 33.6 L (42.0-52.0) % Plt Count 162 (130-400) K/uL BMP 03/21/24 05:42 Sodium 135 L Potassium 4.1 Chloride 106 Carbon Dioxide 24 BUN 15 Creatinine 1.05 Glucose 123 H Calcium 7.6 L Cardiac Enzymes 03/21/24 Range/Units 05:42 Total Creatine Kinase 609 H (30-223) U/L Medications Administered Current Inpatient Medications Acetaminophen (Acetaminophen 325 Mg Tab) 650 mg PO QID PRN PRN Reason: pain/fever Stop: 04/18/24 19:29 Last Admin: 03/21/24 07:37 Dose: 650 mg Ondansetron HCl (Ondansetron Inj 2 Mg/Ml 2 Ml Vial) 4 mg IV Q6H PRN PRN Reason: Nausea And Vomiting Stop: 04/19/24 08:40 Last Admin: 03/20/24 08:51 Dose: 4 mg Polyethylene Glycol (Polyethylene (Miralax) 17 Gm Pack) 17 gm PO DAILY GIUSEPPE Stop: 04/20/24 10:29 Last Admin: 03/21/24 10:26 Dose: 17 gm Tamsulosin HCl (Tamsulosin Hcl 0.4 Mg Cap) 0.4 mg PO DAILY GIUSEPPE Stop: 04/19/24 08:59 Last Admin: 03/21/24 07:34 Dose: 0.4 mg Tramadol HCl (Tramadol Hcl 50 Mg Tablet) 25 - 50 mg PO Q4H PRN PRN Reason: Pain Stop: 04/18/24 19:29 Last Admin: 03/21/24 08:19 Dose: 50 mg (1) Accident caused by farm tractor Encounter type: initial encounter Qualified Code(s): W30.9XXA - Contact with unspecified agricultural machinery, initial encounter (3) Closed pelvic ring fracture Encounter type: initial encounter Qualified Code(s): S32.810A - Multiple fractures of pelvis with stable disruption of pelvic ring, initial encounter for closed fracture (4) Closed sacral fracture Encounter type: initial encounter (5) Fracture of transverse process of lumbar vertebra Encounter type: initial encounter Fracture type: closed Qualified Code(s): S32.009A - Unspecified fracture of unspecified lumbar vertebra, initial encounter for closed fracture
[2024-03-21] MEDS: COUGH DROP (SUGAR FREE) LOZ 24 LOZ/1 BOX BUCCAL ONE (22:30)
--- NOTE | 2024-03-22 05:36 | Electrocardiogram Report ---
Test Reason : Blood Pressure : / mmHG Vent. Rate : 073 BPM Atrial Rate : 073 BPM P-R Int : 166 ms QRS Dur : 076 ms QT Int : 388 ms P-R-T Axes : 066 045 033 degrees QTc Int : 427 ms Normal sinus rhythm Inferior infarct When compared with ECG of 13-MAR-2016 15:47, Premature supraventricular complexes are no longer Present Confirmed by Clayton Bennett ([id number]) on 03/22/2024 5:35:59 AM Referred By: REFERRED SELF Confirmed By:Clayton Bennett
[2024-03-22 07:47] LABS: Basophils # (auto) 0.01 K/uL (0.00-0.20); Basophils % (auto) 0.1 %; Hematocrit (blood only) 34.4 % (42.0-52.0); Hemoglobin 11.3 g/dl (14.0-18.0); Immature Granulocytes # (auto) 0.08 K/uL (0.01-0.20); Immature Granulocytes % (auto) 0.8 %; Lymphocytes # (auto) 0.79 K/uL (1.20-3.40); Lymphocytes % (auto) 7.4 %; Mean Corpuscular Hgb Conc 32.8 g/dL (32.0-36.0); Mean Corpuscular Volume 91.2 fL (80.0-100.0); Mean Platelet Volume 11.5 fL (9.4-12.4); Monocytes # (auto) 1.11 K/uL (0.11-0.59); Monocytes % (auto) 10.4 %; Neutrophils # (auto) 8.67 K/uL (1.40-6.50); Neutrophils % (auto) 81.3 %; Platelet Count 168 K/uL (130-400); RDW Coefficient of Variation 13.3 % (11.5-14.5); RDW Standard Deviation 44.3 fL (36.4-46.3); Red Blood Count 3.77 M/uL (4.70-6.10); White Blood Count 10.66 K/ul (4.8-10.8)
[2024-03-22 07:55] VITALS: BP 112/58; PULSE 64; RESP 17; TEMP 97.7; O2SAT 95
--- NOTE | 2024-03-22 08:02 | Surgery Progress Note ---
Date of Service March 22, 2024 Assessment & Plan (1) Closed pelvic ring fracture: Plan: 78-year-old gentleman status post fall with a stable pelvis fracture multiple abrasions. This is a stable fracture will heal nonoperative management. It takes about 3 months to heal. Plan: At this point he can weight-bear as tolerated. He is can need a walker for the first 2 to 6 weeks. He can weight-bear as tolerated. He can follow-up in our clinic in a couple weeks. Any orthopedic questions can be directed at [phone]. I recommend orthopedic follow-up in about a month. (2) Pelvic fracture: (3) Closed sacral fracture: Admission and Anticipated Discharge Date Admission Date: March 21, 2024 Subjective 78-year-old gentleman status post a fall off a tractor with a stable pelvis fracture. Skeletal other other abrasions. No new complaints today. Still and having difficulty mobilizing. Mostly just hip and back pain. Physical Exam Physical Exam: Physical examination is a pleasant middle-age male. He is lying in bed looks pretty comfortable this morning. Examination of the right hip and leg reveals multiple abrasions as on the scalp and there which are covered with bandages. Examination of the right leg reveals no obvious deformity. Still can do a straight leg raise. Minimal pain with hip motion. He is neurologically intact Results & Data Vital Signs (Past 12 Hours) Vital Signs Temp Pulse Resp BP Pulse Ox O2 Del Method 03/22/24 07:55 36.5 C 64 17 112/58 L 95 Room Air 03/21/24 21:53 36.7 C 73 16 134/72 98 Room Air 03/21/24 20:35 Room Air PG Care Time/CCT Total # of Minutes Spent Total Time Spent with Patient: Total time spent is greater than 50% in coordination of care (as documented) at patient's floor/unit and/or counseling patient: Coding Level of Care Code 97532 Post Operative Follow-Up Diagnoses Closed pelvic ring fracture S32.810A Encounter type: initial encounter Pelvic fracture S32.9XXA Closed sacral fracture S32.10XA Encounter type: initial encounter (1) Closed pelvic ring fracture Encounter type: initial encounter Qualified Code(s): S32.810A - Multiple fractures of pelvis with stable disruption of pelvic ring, initial encounter for closed fracture (3) Closed sacral fracture Encounter type: initial encounter
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
[2024-03-22] MEDS: ERGOCALCIFEROL 1250 MCG (50,000 UNITS) CAP PO SCH (11:52)
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
== END 2024-03-22 14:45 | DRG 964 ==
LOC: 3N 16:25 → ED 16:25 → 3N 21:32
DX: J82.83 Eosinophilic asthma; S32.19XA Other fracture of sacrum, initial encounter for closed fracture; S81.811A Laceration without foreign body, right lower leg, initial encounter; N40.0 Benign prostatic hyperplasia without lower urinary tract symptoms; S32.591A Other specified fracture of right pubis, initial encounter for closed fracture; R73.03 Prediabetes; W17.89XA Other fall from one level to another, initial encounter; Y92.79 Other farm location as the place of occurrence of the external cause; S32.058A Other fracture of fifth lumbar vertebra, initial encounter for closed fracture; E78.5 Hyperlipidemia, unspecified; T79.6XXA Traumatic ischemia of muscle, initial encounter